=== PATIENT | male | born 1945 | race Caucasian/White ===

== ENCOUNTER 2018-02-02 11:35 | Emergency (ER) | payer OTHER ==
--- OUTSIDE RECORDS SUMMARY | 2018-02-02 11:37 | XMS REPORT | Clinical Summary ---
:1945 Author Organization [facility] Address [address] [place] [address] Care Team Providers Name Role Phone Kranthi Villavicencio MD Primary Care Provider Allergies No Known Allergies Current Medications Prescription Sig. Disp. Refills Start Date End Date Status pravastatin Take 40 mg by Active (PRAVACHOL) 40 MG mouth daily. tablet cyanocobalamin PHARMACIST 99 09/26/2017 Active 1,000 mcg/mL INJECT injection DIRECTED losartan (COZAAR) TK 1 T PO QD 3 10/22/2017 Active 50 MG tablet metoprolol TK 1 T PO QD 3 10/22/2017 Active succinate XL (TOPROL-XL) 50 mg 24 hr tablet HYDROcodone-acetami TAKE 1 TABLET 0 06/22/2016 Discontinued nophen (NORCO) EVERY 6 HOURS 8 10-325 mg per FOR PAIN tablet lisinopril Take 40 mg by Discontinued (PRINIVIL,ZESTRIL) mouth daily. 8 40 mg tablet bisoprolol-hydrochl Take 1 tablet Discontinued orothiazide (ZIAC) by mouth daily. 8 10-6.25 mg per tablet mupirocin Apply to both 22 g 0 07/31/2017 (BACTROBAN) 2 % nostril twice a 8 ointment day starting 2 days prior to surgery and morning of surgery aspirin 81 mg Chew 1 tablet 60 tablet 0 09/10/2017 chewable tablet (81 mg total) 2 8 (two) times a day for 30 days. docusate sodium Take 1 capsule 60 capsule 0 09/10/2017 (COLACE) 100 MG (100 mg total) 8 capsule by mouth 2 (two) times a day for 30 days. acetaminophen-codei Take 1 tablet 30 tablet 0 09/25/2017 ne (TYLENOL WITH by mouth every 8 CODEINE #3) 300-30 6 (six) hours mg per tablet as needed for moderate pain for up to 10 days. 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 Encounters Date Type Specialty Care Team Description 12/23/2017 Office Visit Orthopedic Surgery Rick Lou Chronic left shoulder pain (Primary Dx); MD Kiley Carpal tunnel syndrome of right wrist 12/19/2017 Telephone Gastroenterology Georges Miranda MD 11/18/2017 Office Visit Internal Medicine Kranthi Villavicencio Pain in both knees , unspecified chronicity (Primary Dx); MD Dana Obstructive sleep apnea syndrome; Screening for malignant neoplasm of colon; Carpal tunnel syndrome of right wrist 09/25/2017 Office Visit Orthopedic Surgery Rayray Clifford Status post left knee MD Dana replacement (Primary Dx) 09/25/2017 Orders Only Orthopedic Surgery Olesya Garcia MA 09/25/2017 Orders Only Orthopedic Surgery Olesya Garcia MA 09/15/2017 Orders Only Orthopedic Surgery Beckham, Instability of left knee joint (Primary Dx); JUSTIN Colón Status post revision of total knee replacement, left 09/09/2017 - Hospital Encounter Orthopedic Surgery Rayray Clifford Displacement of 09/10/2017 MD Dana internal left knee prosthesis, initial encounter 09/09/2017 Anesthesia Event Orthopedic Surgery Arcadio Smith CRNA 09/09/2017 Procedure Pass Orthopedic Surgery 09/09/2017 Surgery Orthopedic Surgery Rayray Clifford ARTHROPLASTY, KNEE, MD Dana TOTAL 08/25/2017 Lab Lab Kranthi Villavicencio Pre-op evaluation MD Dana 08/25/2017 Hospital Encounter Radiology Kranthi Villavicencio Cervical J., MD radiculopathy 08/25/2017 Hospital Encounter Radiology Kranthi Villavicencio Pre-op evaluation MD Dana 08/25/2017 Office Visit Internal Medicine Kranthi Villavicencio Pre-op evaluation ( Primary Dx); MD Dana Cervical radiculopathy 07/31/2017 Office Visit Orthopedic Surgery Rayray Clifford Status post bilateral knee replacements (Primary Dx); MD Dana Acute pain of both knees 07/31/2017 Orders Only Orthopedic Surgery Pavan Garciaa, MA 07/29/2017 Orders Only Orthopedic Surgery Olesya Garcia, Acute pain of both MA knees (Primary Dx) 05/01/2017 Office Visit Internal Medicine Kranthi Villavicencio Need for vaccination (Primary Dx); MD Dana Other chronic pain after 02/01/2017 Immunizations Name Dates Previously Given Next Due FLUZONE HIGH-DOSE PF 05/01/2017 Family History Medical History Relation Name Comments Cancer Brother Cancer Father X Cancer Mother X Relation Name Status Comments Brother (Age 54) Father X (Age 78) Mother X (Age 54) Social History Tobacco Use Types Packs/Day Years Used Date Never Smoker Smokeless Tobacco: Never Used Alcohol Use Drinks/Week oz/Week Comments No Sex Assigned at Date Recorded Not on file Last Filed Vital Signs Vital Sign Reading Time Taken Blood Pressure 166/92 11/18/2017 10:58 AM CDT Pulse 93 11/18/2017 10:58 AM CDT Temperature 35.9 C (96.7 F) 09/10/2017 8:39 AM JEWELRY FINISHER Respiratory Rate 17 09/10/2017 8:39 AM JEWELRY FINISHER Oxygen Saturation 94% 09/10/2017 8:39 AM JEWELRY FINISHER Inhaled Oxygen Concentration - - Weight 115 kg (252 lb 11.2 oz) 11/18/2017 10:58 AM CDT Height 182.9 cm (6') 11/18/2017 10:58 AM CDT Body Mass Index 34.27 11/18/2017 10:58 AM CDT Plan of Treatment Date Type Specialty Care Team Description 02/06/2018 Office Visit Internal Medicine Kranthi Villavicencio MD [address] [place], [place] [id number] Health Maintenance Due Date Last Done Comments COLON CANCER SCREENING 1997 SHINGRIX VACCINE (#1) 1997 ZOSTER VACCINE 2007 PNEUMOCOCCAL POLYSACCHARIDE VACCINE AGE 65 AND OVER 2012 PNEUMOCOCCAL-13 2012 INFLUENZA VACCINE 03/18/2018 05/01/2017 Implants Implanted Type Area Heating Unit Installer Device Expiration Model / Identifier Date Serial / Lot Surface Artclr Rhk #D #3-6 14mm Nexgen - [id number] Knee Joint Left: [employer] 06/17/2021 [id number] / Implanted: Qty: 1 on 09/09/2017 by Rayray Clifford MD Implants Knee / [id number] Cement Bone R+G 1dose Palacos - [id number] Knee Joint Left: [employer] [id number] / Implanted: Qty: 1 on 09/09/2017 by Rayray Clifford MD Implants Knee / [id number] Cement Bone R+G 1dose Palacos - [id number] Knee Joint Left: [employer] [id number] / Implanted: Qty: 1 on 09/09/2017 by Rayray Clifford MD Implants Knee / [id number] Cement Bone R+G 1dose Palacos - [id number] Knee Joint Left: [employer] [id number] / Implanted: Qty: 1 on 09/09/2017 by Rayray Clifford MD Implants Knee / [id number] Plate Tib Rotng Hinge Nmodlr Sz 3 Nexgen - [id number] Knee Joint Left: [employer] 04/17/2022 [id number] / Implanted: Qty: 1 on 09/09/2017 by Rayray Clifford MD Implants Knee / [id number] Component Feml Left Rhk Size D Nexgen - [id number] Knee Joint Left: [employer] 07/17/2022 [id number] / Implanted: Qty: 1 on 09/09/2017 by Rayray Clifford MD Implants Knee / [id number] Augment Fml Block Distl P-Coat Sz D Tivn Pmma 5mm Strl - [id number] Knee Joint Left: [employer] 06/17/2027 [id number] / Implanted: Qty: 1 on 09/09/2017 by Rayray Clifford MD Implants Knee / [id number] Extension Stem Str [id number] (30mm) Nexgen - [id number] Knee Joint Left: [employer] 07/17/2027 [id number] / Implanted: Qty: 1 on 09/09/2017 by Rayray Clifford MD Implants Knee / [id number] Augment Fml Block Distl P-Coat Sz D Tivn Pmma 5mm Strl - [id number] Knee Joint Left: [employer] 03/17/2026 [id number] / Implanted: Qty: 1 on 09/09/2017 by Rayray Clifford MD Implants Knee / [id number] Cement Bone Prep Univl Insrtr Sculp Fml [place] Suct Sm - [id number] Surgical Left: [employer] 02/15/2022 [id number] / Implanted: Qty: 1 on 09/09/2017 by Rayray Clifford MD Implants; Knee INSTRUMENTS / Expanders; [id number] Extenders; Surgical Wires Procedures Procedure Name Priority Date/Time Associated Diagnosis Comments XR SHOULDER 2+ VW Routine 12/23/2017 8:51 Chronic left Results for this LEFT AM CDT shoulder pain procedure are in the results section. XR HAND 3+ VW RIGHT Routine 12/23/2017 8:33 Carpal tunnel Results for this AM CDT syndrome of right procedure are in wrist the results section. B NATRIURETIC PEPTIDE Routine 09/10/2017 5:00 Results for this AM JEWELRY FINISHER procedure are in the results section. CBC WITH PLATELET AND Routine 09/10/2017 5:00 Results for this DIFFERENTIAL AM JEWELRY FINISHER procedure are in the results section. ESTIMATED GFR Routine 09/10/2017 4:00 Results for this AM JEWELRY FINISHER procedure are in the results section. PHOSPHORUS LEVEL Routine 09/10/2017 4:00 Results for this AM JEWELRY FINISHER procedure are in the results section. MAGNESIUM LEVEL Routine 09/10/2017 4:00 Results for this AM JEWELRY FINISHER procedure are in the results section. BASIC METABOLIC PANEL Routine 09/10/2017 4:00 Results for this AM JEWELRY FINISHER procedure are in the results section. XR KNEE 1 OR 2 VW Routine 09/09/2017 12:31 Results for this LEFT PM JEWELRY FINISHER procedure are in the results section. POC GLUCOSE Routine 09/09/2017 12:06 Results for this PM JEWELRY FINISHER procedure are in the results section. SURGICAL PATHOLOGY Routine 09/09/2017 11:24 Results for this REQUEST AM JEWELRY FINISHER procedure are in the results section. GRAM STAIN Timed 09/09/2017 10:54 Results for this AM JEWELRY FINISHER procedure are in the results section. AFB STAIN Timed 09/09/2017 10:54 Results for this AM JEWELRY FINISHER procedure are in the results section. JOINT FLUID CULTURE Timed 09/09/2017 10:54 Results for this AM JEWELRY FINISHER procedure are in the results section. FUNGUS SMEAR Timed 09/09/2017 10:54 Results for this AM JEWELRY FINISHER procedure are in the results section. AFB CULTURE Timed 09/09/2017 10:54 Displacement of Results for this AM JEWELRY FINISHER internal left knee procedure are in prosthesis, initial the results encounter section. FUNGUS CULTURE Timed 09/09/2017 10:54 Displacement of Results for this AM JEWELRY FINISHER internal left knee procedure are in prosthesis, initial the results encounter section. ANAEROBIC CULTURE Timed 09/09/2017 10:54 Displacement of Results for this AM JEWELRY FINISHER internal left knee procedure are in prosthesis, initial the results encounter section. SC AN ELECTIVE Routine 09/09/2017 10:34 SUPRAGLOTTIC AIRWAY AM JEWELRY FINISHER Procedure Note - Alfreda Alvarado CRNA - 09/09/2017 10:33 AM JEWELRY FINISHER Airway Date/Time: 09/09/2017 10:09 AM Performed by: ALFREDA ALVARADO Authorized by: MARYANNE KILLIAN Location: OR Urgency: Elective Difficult Airway: No Anesthesiologist: MARYANNE KILLIAN Resident/AUDIOPROSTHOLOGIST/AA: ALFREDA ALVARADO Performed by: resident/AUDIOPROSTHOLOGIST/AA Preoxygenated with 100% O2: Yes C-spine Precautions Maintained Throughout: Yes Mask Ventilation: Not attempted Final Airway Type: Supraglottic airway Final LMA: Classic LMA Size: 5 Number of Attempts at Approach: 1 Smooth, atraumatic insertion with good seal; dentition intact ARTHROPLASTY, KNEE, TOTAL 09/09/2017 10:00 AM JEWELRY FINISHER Displacement of internal left knee prosthesis, initial encounter SC AN PERIPHERAL BLOCK Routine 09/09/2017 9:13 AM JEWELRY FINISHER POST-OP PAIN Procedure Note - Maryanne Killian MD - 09/09/2017 9:11 AM JEWELRY FINISHER Peripheral Block Performed by: MARYANNE KILILAN Authorized by: MARYANNE KILLIAN Patient Location: Pre-op Start Time: 09/09/2017 9:05 AM End Time: 09/09/2017 9:06 AM Reason for Block: at surgeon's request, post-op pain management Staff: Anesthesiologist: MARYANNE KILLIAN Performed by: Anesthesiologist Preprocedure: patient identified, IV checked, site and side verified, risks and benefits discussed, procedure verified, surgical consent complete, patient position confirmed, monitors and equipment checked, pre-op evaluation complete and site marked Time Out Performed: 09/09/2017 8:54 AM Peripheral Nerve Block: Patient Position: Supine Prep: ChloraPrep Monitoring: Blood pressure monitoring, continuous pulse oximetry and heart rate Block Type: Femoral (adductor canal) Laterality: Left Injection Technique: Single injection Procedures: ultrasound guided Ultrasound documentation: Images saved on hard disk and printed/placed in chart Local Infiltration (See MAR for details): Lidocaine Needle: Needle Type: Pajunk Needle Gauge: 22 G Needle Length: 8 cm Assessment: Injection Assessment: Visualized needle/local anesthetic surrounding nerve , intermittent aspiration during local anesthetic administration, visualized pertinent vascular structures and nerves, no symptoms of intraneural/intravenous injection and needle tip visualized at all times during injection of medication Paresthesia Pain: None Heart Rate Change: No Slow Fractionated Injection: Yes Block outcome: No apparent complications, patient comfortable and patient tolerated procedure well ANESTHESIA SPINAL BLOCK Routine 09/09/2017 9:10 AM JEWELRY FINISHER Procedure Note - Maryanne Killian MD - 09/09/2017 9:10 AM JEWELRY FINISHER Spinal Block Performed by: MARYANNE KILLIAN Authorized by: MARYANNE KILLIAN Patient Location: Pre-op Start Time: 09/09/2017 8:57 AM End Time: 09/09/2017 9:00 AM Reason for Block: at surgeon's request Staff: Anesthesiologist: MARYANNE KILLIAN Performed by: Anesthesiologist patient identified, IV checked, site and side verified, risks and benefits discussed, procedure verified, surgical consent complete, patient position confirmed, monitors and equipment checked and pre-op evaluation complete TIme Out Performed: 09/09/2017 8:53 AM Spinal Block: Patient Position: Sitting Prep: Betadine Monitoring: Blood pressure monitoring, continuous pulse oximetry and heart rate Approach: Midline Interspace: L3-4 Injection Technique: Single injection Needle: Needle Type: Pencil-tip Needle Gauge: 25 G Assessment: Coagulation status: Coagulation status verified Block assessment: No apparent complications and patient tolerated procedure well Notes: X 1 attempt @ 6cm POC GLUCOSE Routine 09/09/2017 7:29 Results for this AM JEWELRY FINISHER procedure are in the results section. TYPE AND SCREEN Routine 09/09/2017 7:25 Results for this AM JEWELRY FINISHER procedure are in the results section. XR CHEST 2 VW Routine 08/25/2017 2:08 Pre-op evaluation Results for this PM JEWELRY FINISHER procedure are in the results section. XR CERVICAL SPINE Routine 08/25/2017 2:08 Cervical Results for this COMPLETE PM JEWELRY FINISHER radiculopathy procedure are in the results section. SEDIMENTATION RATE Routine 08/25/2017 12:06 Pre-op evaluation Results for this PM JEWELRY FINISHER procedure are in the results section. C-REACTIVE PROTEIN Routine 08/25/2017 12:06 Pre-op evaluation Results for this PM JEWELRY FINISHER procedure are in the results section. PROTHROMBIN TIME WITH Routine 08/25/2017 11:55 Pre-op evaluation Results for this INR AM JEWELRY FINISHER procedure are in the results section. PARTIAL THROMBOPLASTIN Routine 08/25/2017 11:55 Pre-op evaluation Results for this TIME (PTT) AM JEWELRY FINISHER procedure are in the results section. URINALYSIS, AUTOMATED Routine 08/25/2017 11:55 Pre-op evaluation Results for this WITH MICROSCOPY AM JEWELRY FINISHER procedure are in the results section. COMPREHENSIVE Routine 08/25/2017 11:55 Pre-op evaluation Results for this METABOLIC PANEL AM JEWELRY FINISHER procedure are in the results section. CBC WITH PLATELET AND Routine 08/25/2017 11:55 Pre-op evaluation Results for this DIFFERENTIAL AM JEWELRY FINISHER procedure are in the results section. ECG 12-LEAD Routine 08/25/2017 11:17 Pre-op evaluation Results for this AM JEWELRY FINISHER procedure are in the results section. XR KNEE 3 VW BILATERAL Routine 07/31/2017 8:25 Acute pain of both AM JEWELRY FINISHER knees XR LEG LENGTH Routine 07/31/2017 8:25 Acute pain of both Results for this EVALUATION AM JEWELRY FINISHER knees procedure are in the results section. after 02/01/2017 Results XR Shoulder 2+ Vw Left (12/23/2017 8:51 AM) Narrative Performed At 3 views left shoulder in good penetrance and quality with out any acute HM [facility] obvious fractures, dislocations or calcifications unless HPI states otherwise. Performing Organization Address City/State/Zipcode Phone Number [facility] [address] [place] [address] XR Hand 3+ Vw Right (12/23/2017 8:33 AM) Narrative Performed At 3 views rt hand in good penetrance and quality with out any acute obvious HM [facility] fractures, dislocations or calcifications unless HPI states otherwise. Performing Organization Address City/[facility]/Zipcode Phone Number [facility] [address] [address] CBC with platelet and differential (09/10/2017 5:00 AM)Only the most recent of2 resultswithin the time period is included. WBC 21.01 (H) 4.50 - 11.00 k/uL [facility] DEPARTMENT OF PATHOLOGY AND GENOMIC MEDICINE RBC 4.13 (L) 4.40 - 6.00 m/uL [facility] DEPARTMENT OF PATHOLOGY AND GENOMIC MEDICINE HGB 12.0 (L) 14.0 - 18.0 g/dL [facility] DEPARTMENT OF PATHOLOGY AND GENOMIC MEDICINE HCT 37.3 (L) 41.0 - 51.0 % [facility] DEPARTMENT OF PATHOLOGY AND GENOMIC MEDICINE MCV 90.3 82.0 - 100.0 fL [facility] DEPARTMENT OF PATHOLOGY AND GENOMIC MEDICINE MCH 29.1 27.0 - 34.0 pg [facility] DEPARTMENT OF PATHOLOGY AND GENOMIC MEDICINE MCHC 32.2 31.0 - 37.0 g/dL [facility] DEPARTMENT OF PATHOLOGY AND GENOMIC MEDICINE RDW - SD 39.8 37.0 - 55.0 fL [facility] DEPARTMENT OF PATHOLOGY AND GENOMIC MEDICINE MPV 9.7 8.8 - 13.2 fL [facility] DEPARTMENT OF PATHOLOGY AND GENOMIC MEDICINE Platelet count 218 150 - 400 k/uL [facility] DEPARTMENT OF PATHOLOGY AND GENOMIC MEDICINE Nucleated RBC 0.00 /100 WBC [facility] DEPARTMENT OF PATHOLOGY AND GENOMIC MEDICINE Neutrophils 92.0 (H) 39.0 - 69.0 % [facility] DEPARTMENT OF PATHOLOGY AND GENOMIC MEDICINE Lymphocytes 4.6 (L) 25.0 - 45.0 % [facility] DEPARTMENT OF PATHOLOGY AND GENOMIC MEDICINE Monocytes 2.7 0.0 - 10.0 % [facility] DEPARTMENT OF PATHOLOGY AND GENOMIC MEDICINE Eosinophils 0.0 0.0 - 5.0 % [facility] DEPARTMENT OF PATHOLOGY AND GENOMIC MEDICINE Basophils 0.1 0.0 - 1.0 % [facility] DEPARTMENT OF PATHOLOGY AND GENOMIC MEDICINE Immature granulocytes 0.6Comment: 0.0 - 1.0 % [facility] DEPARTMENT OF "Immature PATHOLOGY AND GENOMIC granulocytes" MEDICINE (promyelocytes, myelocytes, metamyelocytes) Specimen Blood Performing Organization Address [facility] Phone Number [facility] DEPARTMENT OF PATHOLOGY AND [address] [place] [phone] [facility] B natriuretic peptide (09/10/2017 5:00 AM) BNP 122 (H) 0 - 100 pg/mL [facility] DEPARTMENT OF PATHOLOGY AND GENOMIC MEDICINE Specimen Blood Performing Organization Address [facility] Phone Number [facility] DEPARTMENT OF PATHOLOGY AND [address] [place] [phone] [facility] Estimated GFR (09/10/2017 4:00 AM) GFR Non Af Amer 66 mL/min/1.73 m2 [facility] DEPARTMENT OF PATHOLOGY AND GENOMIC MEDICINE GFR Af Amer 80 mL/min/1.73 m2 [facility] DEPARTMENT OF Comment: PATHOLOGY AND GENOMIC Chronic kidney disease: <60 mL/min/1.73m2 MEDICINE Kidney failure: <15 mL/min/1.73m2 The estimated GFR is calculated from the IDMS-traceable Modification of Diet in Renal Disease Equation. The accuracy of the calculation is poor when the creatinine is normal. Calculated values >90 mL/min/1.73m2 are not reported. This equation has not been validated in children (<18 years), women, the elderly (>70 years), or ethnic groups other than Caucasians and Americans. Specimen Plasma specimen Performing Organization Address [facility] Phone Number [facility] DEPARTMENT OF PATHOLOGY AND [address] [place] [phone] [facility] Phosphorus level (09/10/2017 4:00 AM) Phosphorus 2.3 (L) 2.4 - 4.5 mg/dL [facility] DEPARTMENT OF PATHOLOGY AND GENOMIC MEDICINE Specimen Plasma specimen Performing Organization Address [facility] Phone Number [facility] DEPARTMENT OF PATHOLOGY AND [address] [place] [phone] [facility] Magnesium level (09/10/2017 4:00 AM) Magnesium 1.9 1.6 - 2.4 mg/dL [facility] DEPARTMENT OF PATHOLOGY AND GENOMIC MEDICINE Specimen Plasma specimen Performing Organization Address [facility] Phone Number [facility] DEPARTMENT OF PATHOLOGY AND [address] [place] [phone] [facility] Basic metabolic panel (09/10/2017 4:00 AM) Sodium 136 135 - 148 mEq/L [facility] DEPARTMENT OF PATHOLOGY AND GENOMIC MEDICINE Potassium 5.1 (H) 3.5 - 5.0 mEq/L [facility] DEPARTMENT OF PATHOLOGY AND GENOMIC MEDICINE Chloride 102 98 - 112 mEq/L [facility] DEPARTMENT OF PATHOLOGY AND GENOMIC MEDICINE CO2 22 (L) 24 - 31 mEq/L [facility] DEPARTMENT OF PATHOLOGY AND GENOMIC MEDICINE Anion gap 12 7 - 15 mEq/L [facility] DEPARTMENT OF PATHOLOGY Comment: [facility] Starting from November , anion gap calculation no longer incorporates potassium. Please note the change. BUN 16 8 - 23 mg/dL [facility] DEPARTMENT OF PATHOLOGY AND GENOMIC MEDICINE Creatinine 1.1 0.7 - 1.2 mg/dL [facility] DEPARTMENT OF PATHOLOGY AND GENOMIC MEDICINE Glucose 132 (H) 65 - 99 mg/dL [facility] DEPARTMENT OF PATHOLOGY AND GENOMIC MEDICINE Calcium 8.6 (L) 8.8 - 10.2 mg/dL [facility] DEPARTMENT OF PATHOLOGY AND GENOMIC MEDICINE Specimen Plasma specimen Performing Organization Address City/[facility]/Zipcode Phone Number [facility] DEPARTMENT OF PATHOLOGY AND [address] [phone] [facility] XR Knee 1 Or 2 Vw Left (09/09/2017 12:31 PM) Narrative Performed At EXAMINATION:XR KNEE 1 OR 2 VW LEFT [facility] CLINICAL HISTORY:total knee arthoplasty COMPARISON:07/31/2017 IMPRESSION: Status post left knee arthroplasty revision with longer stem femoral and tibial components. Hardware is in satisfactory alignment. There is no fracture. Overlying soft tissue swelling, subcutaneous emphysema and skin je. [facility]-[id number] Procedure Note Interface, Radiology Results Incoming - 09/09/2017 12:38 PM JEWELRY FINISHER EXAMINATION: XR KNEE 1 OR 2 VW LEFT CLINICAL HISTORY: total knee arthoplasty COMPARISON: 07/31/2017 IMPRESSION: Status post left knee arthroplasty revision with longer stem femoral and tibial components. Hardware is in satisfactory alignment. There is no fracture. Overlying soft tissue swelling, subcutaneous emphysema and skin je. [facility]-[id number] Performing Organization Address City/[facility]/Zipcode Phone Number [facility] [address] [place] [address] POC glucose (09/09/2017 12:06 PM)Only the most recent of2 resultswithin the time period is included. POC glucose 103 (H) 65 - 99 mg/dL [facility] DEPARTMENT OF PATHOLOGY AND Comment: GENOMIC MEDICINE [facility] Notified RN Meter ID: [id number] Software Development Analyst: Brandenburgluis Fullermargo Lindo Performing Organization Address City/[facility] Phone Number [facility] DEPARTMENT OF PATHOLOGY AND [address] [place] [address] GENOMIC MEDICINE Surgical pathology request (09/09/2017 11:24 AM) [facility] DEPARTMENT OF PATHOLOGY AND GENOMIC MEDICINE Surgical pathology report See link below for PDF [facility] DEPARTMENT OF Lab Report PATHOLOGY AND GENOMIC MEDICINE Result status This is Final Report to [facility] DEPARTMENT OF [id number] PATHOLOGY AND GENOMIC MEDICINE Performing Organization Address [facility] Phone Number [facility] DEPARTMENT OF PATHOLOGY AND [address] [place] [address] GENOMIC MEDICINE Joint fluid culture (09/09/2017 10:54 AM) Joint fluid culture No growth after 4 days. [facility] DEPARTMENT OF isolate Comment: PATHOLOGY AND GENOMIC Specimen Information MEDICINE Specimen Source: Joint Fluid Specimen Site: Knee, left Specimen Joint fluid - Knee, left Performing Organization Address [facility] [facility] Phone Number [facility] DEPARTMENT OF PATHOLOGY AND [address] [place] [address] GENOMIC MEDICINE Fungus smear (09/09/2017 10:54 AM) Fungus smear No fungi observed. [facility] DEPARTMENT OF PATHOLOGY AND Comment: GENOMIC MEDICINE Specimen Information Specimen Source: Joint Fluid Specimen Site: Knee, left Specimen Joint fluid - Knee, left Performing Organization Address [facility] Phone Number [facility] DEPARTMENT OF PATHOLOGY AND [address] [place] [address] GENOMIC MEDICINE AFB culture (09/09/2017 10:54 AM) AFB culture isolate No growth after 6 weeks of incubation. [facility] DEPARTMENT OF PATHOLOGY Comment: AND GENOMIC MEDICINE Specimen Information Specimen Source: Joint Fluid Specimen Site: Knee, left Specimen Joint fluid - Knee, left Performing Organization Address [facility] Phone Number [facility] DEPARTMENT OF PATHOLOGY AND [address] [place] [address] GENOMIC MEDICINE Gram stain (09/09/2017 10:54 AM) Gram stain isolate No WBC's or organisms seen. [facility] DEPARTMENT OF PATHOLOGY Comment: AND GENOMIC MEDICINE Specimen Information Specimen Source: Joint Fluid Specimen Site: Knee, left Specimen Joint fluid - Knee, left Performing Organization Address [facility] Phone Number [facility] DEPARTMENT OF PATHOLOGY AND [address] [place] [phone] GENOMIC MEDICINE AFB stain (09/09/2017 10:54 AM) AFB stain No acid fast bacilli (AFB) seen. [facility] DEPARTMENT OF PATHOLOGY AND Comment: GENOMIC MEDICINE Specimen Information Specimen Source: Joint Fluid Specimen Site: Knee, left Specimen Joint fluid - Knee, left Performing Organization Address [facility] Phone Number [facility] DEPARTMENT OF PATHOLOGY AND [address] [place] [address] Fungus culture (09/09/2017 10:54 AM) Fungus culture isolate No growth after 4 weeks of incubation. [facility] DEPARTMENT OF Comment: PATHOLOGY AND GENOMIC Specimen Information MEDICINE Specimen Source: Joint Fluid Specimen Site: Knee, left Specimen Joint fluid - Knee, left Performing Organization Address [facility] Phone Number [facility] DEPARTMENT OF PATHOLOGY AND [address] [place] [address] Anaerobic culture (09/09/2017 10:54 AM) Anaerobic culture No anaerobic organisms isolated. [facility] DEPARTMENT OF isolate Comment: PATHOLOGY AND GENOMIC Specimen Information MEDICINE Specimen Source: Joint Fluid Specimen Site: Knee, left Specimen Joint fluid - Knee, left Performing Organization Address [facility] Phone Number [facility] DEPARTMENT OF PATHOLOGY AND [address] [place] [address] GENOMIC MEDICINE Type and screen (09/09/2017 7:25 AM) ABO grouping O [facility] DEPARTMENT OF PATHOLOGY AND GENOMIC MEDICINE Rh type POS [facility] DEPARTMENT OF PATHOLOGY AND GENOMIC MEDICINE Antibody screen (gel) NEG [facility] DEPARTMENT OF PATHOLOGY AND GENOMIC MEDICINE Specimen Blood Performing Organization Address [facility] Phone Number [facility] DEPARTMENT OF PATHOLOGY AND [address] [place] [address] GENOMIC MEDICINE XR Chest 2 Vw (08/25/2017 2:08 PM) Narrative Performed At Examination:XR CHEST 2 VW [facility] Clinical History: Z01.818 Encounter for other preprocedural examination, pre-op Comparison: December 07, 2009. Technique: Frontal and lateral views of the chest were obtained. Findings: Lungs and pleural surfaces are clear. Cardiomediastinal silhouette and pulmonary vascularity are within normal limits. Bones are intact. Impression: No active cardiopulmonary disease identified. 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 Technique: Frontal and lateral views of the chest were obtained. Findings: Lungs and pleural surfaces are clear. Cardiomediastinal silhouette and pulmonary vascularity are within normal limits. Bones are intact. Impression: No active cardiopulmonary disease identified. [facility]-[id number] Performing Organization Address [facility] Phone Number [facility] [address] [place] [address] XR Cervical Spine Complete (08/25/2017 2:08 PM) Narrative Performed At EXAMINATION:XR CERVICAL SPINE COMPLETE, 5 views. [facility] COMPARISON:None CLINICAL HISTORY:M54.12 Radiculopathycervical region, cervical radiculopathy FINDINGS: There is C5-6 and C6-7 degenerative disc change and spondylosis. There is no malalignment. The C1-2 relationship is normal. There is narrowing of the right C3-4 and C4-5 and left C5-6 neural foramina. The prevertebral soft tissues are normal. There is no fracture. IMPRESSION: Degenerative changes. 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 COMPARISON: None CLINICAL HISTORY: M54.12 Radiculopathy cervical region, cervical radiculopathy FINDINGS: There is C5-6 and C6-7 degenerative disc change and spondylosis. There is no malalignment. The C1-2 relationship is normal. There is narrowing of the right C3-4 and C4-5 and left C5-6 neural foramina. The prevertebral soft tissues are normal. There is no fracture. IMPRESSION: Degenerative changes. [id number] Performing Organization Address [facility] Phone Number [facility] [address] [place] [address] Sedimentation rate (08/25/2017 12:06 PM) Sedimentation rate 2 < OR=20 mm/h [facility] Specimen Blood Resulting Agency Comment Performing Organization Information: Site ID: A Name: [facility] Address: [address] [place] [phone] Director: Dee Dee Harding MD Performing Organization Address [facility] Phone Number [employer] [place] [address] [place] [phone] C-reactive protein (08/25/2017 12:06 PM) CRP 1.8 <8.0 mg/L [employer] [facility] [place] Specimen Blood Resulting Agency Comment Performing Organization Information: Site ID: RGA Name: [facility] Address: [address] [place] [phone] Director: Dee Dee Harding MD Performing Organization Address [facility] Phone Number [employer] [address] [address] Urinalysis, automated with microscopy (08/25/2017 11:55 AM) Color, UA YELLOW YELLOW [facility] [place] Appearance CLEAR CLEAR [facility] [place] Specific gravity, urine 1.024 1.001 - 1.035 [facility] [place] pH, urine 5.5 5.0 - 8.0 [facility] [place] Glucose, urine NEGATIVE NEGATIVE [facility] [place] Bilirubin, UA NEGATIVE NEGATIVE [facility] [place] Ketones, UA NEGATIVE NEGATIVE [facility] [place] Occult blood, urine NEGATIVE NEGATIVE [facility] [place] Protein, UA NEGATIVE NEGATIVE [facility] [place] Nitrite, UA NEGATIVE NEGATIVE [facility] [place] Leukocyte esterase, UA NEGATIVE NEGATIVE [facility] [place] WBC, UA NONE SEEN < OR=5 /HPF [facility] [place] RBC, UA NONE SEEN < OR=2 /HPF [facility] [place] Squamous epithelial cells, UA NONE SEEN < OR=5 /HPF [facility] [place] Bacteria, UA NONE SEEN NONE SEEN /HPF [facility] [place] Hyaline casts, UA NONE SEEN NONE SEEN /LPF [facility] [place] Specimen Urine Resulting Agency Comment Performing Organization Information: Site ID: RGA Name: [facility] Address: [address] [place] [phone] Director: Dee Dee Harding MD Performing Organization Address [facility] Phone Number [employer] [address] [address] Partial thromboplastin time, activated (08/25/2017 11:55 AM) PTT 26 22 - 34 sec [employer] [place] Comment: This test has not been validated for monitoring unfractionated heparin therapy. For testing that is validated for this type of therapy, please refer to the Heparin Anti-Xa assay (test code 83380). For additional information, please refer to http://Apparcando.Sweetgreen/faq/SPL912 (This link is being provided for informational/educational purposes only.) Specimen Blood Resulting Agency Comment Performing Organization Information: Site ID: [facility] Name: [facility] Address: [address] [place] [address] Director: Dee Dee Harding MD Performing Organization Address [facility] Phone Number [facility] [place] [place] [address] Prothrombin time with INR (08/25/2017 11:55 AM) INR 1.0 [facility] [place] Comment: Reference Range 0.9-1.1 Moderate-intensity Warfarin Therapy 2.0-3.0 Higher-intensity Warfarin Therapy 3.0-4.0 Prothrombin time 10.7 9.0 - 11.5 sec [employer] [place] Comment: For more information on this test, go to: http://education.[employer]/faq/PRL492 Specimen Blood Resulting Agency Comment Performing Organization Information: Site ID: [facility] Name: [facility] [facility] Lab Address: [address] [place] [address] Director: Dee Dee Harding MD Performing Organization Address [facility] Phone Number [facility] [place] [address] Comprehensive metabolic panel (08/25/2017 11:55 AM) Glucose 116 (H) 65 - 99 mg/dL [facility] Comment: [place] Fasting reference interval For someone without known diabetes, a glucose value between 100 and 125 mg/dL is consistent with prediabetes and should be confirmed with a follow-up test. BUN, whole blood 13 7 - 25 mg/dL [facility] [employer] [place] Creatinine 1.15 0.70 - 1.18 [facility] Comment: mg/dL [place] For patients >49 years of age, the reference limit for Creatinine is approximately 13% higher for people identified as -Kittitian. EGFR Non-Afr. Kittitian 64 > OR=60 [facility] mL/min/1.73m2 [place] EGFR 74 > OR=60 [employer] [facility] mL/min/1.73m2 [place] BUN/creatinine ratio NOT APPLICABLE 6 - 22 (calc) [employer] [place] Sodium 144 135 - 146 mmol/L [employer] [facility] [place] Potassium 4.3 3.5 - 5.3 mmol/L [employer] [facility] [place] Chloride 107 98 - 110 mmol/L [employer] [facility] [place] CO2 30 20 - 31 mmol/L [employer] [facility] [place] Calcium 9.5 8.6 - 10.3 mg/dL [employer] [facility] [place] Protein 6.9 6.1 - 8.1 g/dL [employer] [place] Albumin, S 4.2 3.6 - 5.1 g/dL [facility] [place] Globulin, total 2.7 1.9 - 3.7 g/dL [facility] (calc) [place] Albumin/globulin ratio 1.6 1.0 - 2.5 (calc) [facility] [place] Total bilirubin 0.5 0.2 - 1.2 mg/dL [employer] [place] Alkaline phosphatase 69 40 - 115 U/L [employer] [facility] [place] AST 19 10 - 35 U/L [employer] [facility] ALT 24 9 - 46 U/L [employer] [facility] [place] Specimen Blood Resulting Agency Comment Performing Organization Information: Site ID: RGA Name: [facility] Address: [address] [place] [phone] Director: Dee Dee Harding MD Performing Organization Address City/[facility] Phone Number [employer] [place] [phone] ECG 12 lead (08/25/2017 11:17 AM) Ventricular rate 76 [facility] Atrial rate 76 [facility] SC interval 210 [facility] QRSD interval 96 [facility] QT interval 392 [facility] QTC interval 441 [facility] P axis 1 39 [facility] QRS axis 1 6 [facility] T wave axis -6 [facility] EKG impression Sinus rhythm with 1st degree AV H MUSE block-Otherwise normal ECG-In automated comparison with ECG of 23-SEP-2016 14:37,-premature ventricular complexes are no longer present- Performing Organization Address [facility] Phone Number [facility] [address] [place] [address] XR Knee 3 Vw Bilateral (07/31/2017 8:25 AM) Narrative Performed At Performing Organization Address [facility] Phone Number [facility] [address] [place] [address] XR Leg Length Evaluation (07/31/2017 8:25 AM) Narrative Performed At Knee x-rays reveal lateral knee arthroplasties in place with a cementless HM [facility] femurs and cemented tibias. Alignment is satisfactory. Performing Organization Address [facility] Phone Number [facility] [address] [place] [address] after 02/01/2017 Insurance Payer Benefit Plan / Group Subscriber ID Type Phone Address MEDICARE MEDICARE PART A AND B xxxxxxxxxx Medicare [place], [place] COMMERCIAL MISC MISC COMMERCIAL xxxxxxxxxx Commercial Home: [id number] [phone] [address]
[2018-02-02] MEDS ORDERED: FENTANYL CITR 100 MCG/2 ML ONE ×2 (11:53→13:58)
[2018-02-02] MEDS ORDERED: NA CHLORIDE 0.9% 1,000 ML ONE (12:08)
[2018-02-02 12:24] LABS: Absolute Lymphocytes (CBC) 1.7 K/uL (0.7-4.9); Absolute Monocytes 0.7 K/uL (0.1-1.3); Absolute Neutrophil 12.4 K/uL (1.8-8.0); Basophils % 0.3 % (0-1.3); Eosinophils % 0.1 % (0-4.4); Hematocrit 46.9 % (39.6-49.0); Lymphocytes % 11.2 % (15.3-44.8); MCH 27.9 pg (27.0-35.0); MPV 7.5 fL (7.6-11.3); Monocytes % 4.5 % (3.3-12.3); RBC Red Blood Cell Count 5.79 M/uL (4.33-5.43)
--- NOTE | 2018-02-02 12:24 | RAD REPORT ---
EXAM DESCRIPTION: CT - Angio Aorta For Dissection - 02/02/2018 12:10 pm CLINICAL HISTORY: Chest pain radiating to the back. left lower quad pain COMPARISON: CT ABD PELVIS W CONTRAST dated 03/02/2012 TECHNIQUE: CT angiography of the aorta was performed with volume rendering. All CT scans are performed using dose optimization technique as appropriate and may include automated exposure control or mA/KV adjustment according to patient size. FINDINGS: A left aortic arch is present with normal branching pattern of the great vessels.No acute aortic finding is seen such as aneurysm, penetrating ulcer or dissection. The celiac axis, SMA, NINA and renal arteries are widely patent. No evidence of pulmonary embolism. Linear subsegmental atelectasis is present in the left lung base. The lungs are otherwise clear. The liver demonstrates no focal mass or biliary dilatation.Cholecystectomy clips.The spleen, pancreas , adrenal glands are within normal limits for arterial phase imaging. 5 mm stone (980 HU) is present at the left UPJ resulting in mild left hydronephrosis. Additional ston e is present in the midpole left kidney measuring 6 mm. No right-sided stone or hydronephrosis. No bowel obstruction, free fluid or abscess.The appendix is not identified as a discrete structure, h owever, no secondary findings of appendicitis are identified. No pathologic enlarged lymphadenopathy identified. No fracture or worrisome bone lesion seen.Postsurgical changes are present right inguinal region. IMPRESSION: No acute aortic finding is demonstrated. 5 mm left UPJ stone (980 HU) resulting mild left hydronephrosis.
--- NOTE | 2018-02-02 12:26 | RAD REPORT ---
EXAM DESCRIPTION: RAD - Chest Single View - 02/02/2018 12:21 pm CLINICAL HISTORY: flank pain Chest pain. COMPARISON: CHEST SINGLE VIEW dated 11/29/2011 FINDINGS: Portable technique limits examination quality. Mild linear atelectasis suspected left lung base. The lungs are otherwise clear. The heart is upper l imit normal size. No displaced fractures. IMPRESSION: No acute intrathoracic process suspected.
[2018-02-02 12:28] LABS: Protime INR 1.03
[2018-02-02] MEDS ORDERED: KETOROLAC 30 MG/ML INJ ONE (12:36)
[2018-02-02] MEDS ORDERED: TAMSULOSIN 0.4 MG SR CAP ONE (12:36)
[2018-02-02 13:36] LABS: Potassium 3.6 mEq/L (3.6-5.0)
[2018-02-02 13:36] LABS: Urine Blood NEGATIVE (NEG); Urine Glucose NEGATIVE (NEG); Urine Protein NEGATIVE (NEG); Urine Specific Gravity 1.015 (1.005-1.030); Urine pH 8.5 (5.0-7.0)
[2018-02-02 13:39] LABS: Magnesium 1.9 mg/dL (1.8-2.5)
[2018-02-02 13:46] LABS: CKMB Creatine Kinase MB 1.8 ng/ml (0.3-4.0)
--- NOTE | 2018-02-02 13:51 | EDPHYS ---
Physician Documentation [facility] Name: Francesco Null Age: 72 yrs Sex: Male : 1945 Arrival Date: 02/02/2018 Time: 11:38 Bed 18 Private MD: ED Physician Radu Perera HPI: 02/02 11:58 This 72 yrs old Male presents to ER via Ambulatory with complaints of snw Possible Kidney Stone. 11:58 Onset: The symptoms/episode began/occurred suddenly, 30 minute(s) ago. Associated signs snw and symptoms: Pertinent positives: nausea. Modifying factors: The patient symptoms are alleviated by nothing, the patient symptoms are aggravated by pressure. The patient has not experienced similar symptoms in the past. It is unknown whether or not the patient has recently seen a physician. Sees PCP in [place]. Pt denies hx of kidney stones. Historical: - Allergies: 11:41 No Known Allergies; hj - PMHx: 11:41 Kidney stones; hj - PSHx: 11:41 L knee surgery; hj - Immunization history:: Adult Immunizations up to date. - Social history:: Smoking status: Patient/guardian denies using tobacco, Patient/guardian denies using alcohol. - Ebola Screening: : Patient negative for fever greater than or equal to 101.5 degrees Fahrenheit, and additional compatible Ebola Virus Disease symptoms Patient denies exposure to infectious person Patient denies travel to an Ebola-affected area in the 21 days before illness onset. ROS: 11:57 Constitutional: Negative for fever, chills, and weight loss, Eyes: Negative for injury, snw pain, redness, and discharge, ENT: Negative for injury, pain, and discharge, Neck: Negative for injury, pain, and swelling, Cardiovascular: Negative for chest pain, palpitations, and edema, Respiratory: Negative for shortness of breath, cough, wheezing, and pleuritic chest pain, Back: Negative for injury and pain, : Negative for injury, bleeding, discharge, and swelling, MS/Extremity: Negative for injury and deformity, Skin: Negative for injury, rash, and discoloration, Neuro: Negative for headache, weakness, numbness, tingling, and seizure. 11:57 Abdomen/GI: Positive for abdominal pain, nausea. Exam: 11:56 Constitutional: This is a well developed, well nourished patient who is awake, alert, snw and in mild to moderate acute distress. Head/Face: Normocephalic, atraumatic. Eyes: Pupils equal round and reactive to light, extra-ocular motions intact. Lids and lashes normal. Conjunctiva and sclera are non-icteric and not injected. Cornea within normal limits. Periorbital areas with no swelling, redness, or edema. ENT: Nares patent. No nasal discharge, no septal abnormalities noted. Tympanic membranes are normal and external auditory canals are clear. Oropharynx with no redness, swelling, or masses, exudates, or evidence of obstruction, uvula midline. Mucous membranes moist. Neck: Trachea midline, no thyromegaly or masses palpated, and no cervical lymphadenopathy. Supple, full range of motion without nuchal rigidity, or vertebral point tenderness. No Meningismus. Chest/axilla: Normal chest wall appearance and motion. Nontender with no deformity. No lesions are appreciated. Cardiovascular: Regular rate and rhythm with a normal S1 and S2. No gallops, murmurs, or rubs. Normal PMI, no JVD. No pulse deficits. Respiratory: Lungs have equal breath sounds bilaterally, clear to auscultation and percussion. No rales, rhonchi or wheezes noted. No increased work of breathing, no retractions or nasal flaring. Back: No spinal tenderness. No costovertebral tenderness. Full range of motion. Skin: Warm, dry with normal turgor. Normal color with no rashes, no lesions, and no evidence of cellulitis. MS/ Extremity: Pulses equal, no cyanosis. Neurovascular intact. Full, normal range of motion. Neuro: Awake and alert, GCS 15, oriented to person, place, time, and situation. Cranial nerves II-XII grossly intact. Motor strength 5/5 in all extremities. Sensory grossly intact. Cerebellar exam normal. Normal gait. 11:56 Abdomen/GI: Inspection: obese Bowel sounds: diminished, Palpation: mild abdominal tenderness, in the right upper quadrant, left upper quadrant and right lower quadrant, severe abdominal tenderness, in the left lower quadrant. Vital Signs: 11:42 BP 188 / 100; Pulse 82; Resp 18; Temp 97.9(O); Pulse Ox 98% on R/A; Weight 113.4 kg; hj Height 6 ft. 0 in. (182.88 cm); Pain 10/10; 12:00 BP 187 / 102 LA Supine (auto/lg); sv 12:28 BP 194 / 95 RA Supine (auto/lg); Pulse 87; Resp 20; Pulse Ox 96% on R/A; sv 12:31 Pulse Ox 89% on R/A; sv 12:32 Pain 8/10; sv 12:58 BP 189 / 95; Pulse 84; Resp 12; Pulse Ox 97% on 2 lpm NC; sv 13:24 BP 179 / 93; Pulse 85; Resp 16; Pulse Ox 98% on 2 lpm NC; sv 11:42 Body Mass Index 33.91 (113.40 kg, 182.88 cm) hj 12:31 Pt placed on O2 \T\ 2L per NC. O2 sat up to 97%. sv MDM: 11:45 Patient medically screened. snw 12:22 Data reviewed: vital signs, nurses notes. Data interpreted: Pulse oximetry: on room air snw is 98 %. Interpretation: normal. ED course: pt returned to room per stretcher from CT, fentanyl 50 mcg IV ordered for obvious pain. 02/02 11:47 Order name: Basic Metabolic Panel; Complete Time: 13:50 snw 02/02 11:47 Order name: BNP; Complete Time: 12:50 snw 02/02 11:47 Order name: CBC with Diff; Complete Time: 12:30 snw 02/02 11:47 Order name: Ckmb; Complete Time: 13:50 snw 02/02 11:47 Order name: CPK; Complete Time: 13:50 snw 02/02 11:47 Order name: Magnesium; Complete Time: 13:50 snw 02/02 11:47 Order name: PT-INR; Complete Time: 12:34 snw 02/02 11:47 Order name: Ptt, Activated; Complete Time: 12:34 snw 02/02 11:47 Order name: Troponin (emerg Dept Use Only); Complete Time: 13:44 snw 02/02 11:47 Order name: XRAY Chest (1 view); Complete Time: 12:27 snw 02/02 11:56 Order name: CT Aorta for Dissection; Complete Time: 12:27 snw 02/02 12:34 Order name: Urine Culture snw 02/02 13:08 Order name: Urine Dipstick--Ancillary (enter results) bd 02/02 11:47 Order name: NPO; Complete Time: 12:00 snw 02/02 11:47 Order name: Bilateral blood pressure; Complete Time: 12:28 snw 02/02 11:47 Order name: EKG; Complete Time: 11:48 snw 02/02 11:47 Order name: Cardiac monitoring; Complete Time: 11:49 snw 02/02 11:47 Order name: EKG - Nurse/Tech; Complete Time: 13:23 snw 02/02 11:47 Order name: IV Saline Lock; Complete Time: 12:10 snw 02/02 11:47 Order name: Labs collected and sent; Complete Time: 11:49 snw 02/02 11:47 Order name: O2 Per Protocol; Complete Time: 11:49 snw 02/02 11:47 Order name: O2 Sat Monitoring; Complete Time: 11:49 snw 02/02 11:47 Order name: Urine Dipstick-Ancillary (obtain specimen); Complete Time: 13:23 snw Administered Medications: 11:56 Drug: fentaNYL (PF) 25 mcg Route: IVP; Site: right antecubital; sv 12:28 Follow up: Response: No adverse reaction; No change in condition sv 12:27 Drug: fentaNYL (PF) 50 mcg Route: IVP; Site: right antecubital; sv 12:32 Follow up: Pain 8/10 Adult; Response: No adverse reaction; Pain is decreased sv 12:28 Drug: NS 0.9% 1000 ml Route: IV; Rate: 125 ml/hr; Site: right antecubital; sv 14:57 Follow up: Response: No adverse reaction; IV Status: Order to discontinue infusion; IV sv Intake: 300ml 12:40 Drug: Flomax 0.4 mg Route: PO; sv 13:22 Follow up: Response: No adverse reaction sv 12:41 Drug: TORadol 30 mg Route: IVP; Site: right antecubital; sv 13:22 Follow up: Response: No adverse reaction sv 14:40 Drug: fentaNYL (PF) 50 mcg Route: IM; Site: left gluteus; sv 14:57 Follow up: Response: No adverse reaction sv 14:40 Drug: Cipro 500 mg Route: PO; sv 14:57 Follow up: Response: No adverse reaction sv Disposition: 17:41 Co-signature as Attending Physician, Radu Perera MD. Disposition: 02/02/18 13:51 Discharged to Home. Impression: Hydronephrosis with renal and ureteral calculous obstruction. - Condition is Stable. - Discharge Instructions: Kidney Stones, Hydronephrosis, Dietary Guidelines to Help Prevent Kidney Stones. - Prescriptions for Zofran 4 mg Oral Tablet - take 1 tablet by ORAL route every 12 hours As needed; 20 tablet. Flomax 0.4 mg Oral Capsule, Sust. Release 24 hr - take 1 capsule by ORAL route once daily 1/2 hour following the same meal each day; 30 capsule. Cipro 500 mg Oral Tablet - take 1 tablet by ORAL route every 12 hours for 7 days; 14 tablet. - Medication Reconciliation Form, Thank You Letter, Antibiotic Education, Prescription Opioid Use form. - Follow up: Private Physician; When: 2 - 3 days; Reason: Recheck today's complaints, Continuance of care, Re-evaluation by your physician. Follow up: Emergency Department; When: As needed; Reason: Worsening of condition. Signatures: Dispatcher [employer] EDDenise Delacruz RN RN sv Therrien, Shelly, RECRUITMENT MANAGER-C RECRUITMENT MANAGER-Csnw Franky Adair RN RN hj Starr, Gregory, MD MD Corrections: (The following items were deleted from the chart) 11:58 11:56 Constitutional: This is a well developed, well nourished patient who is awake, snw alert, and in no acute distress. Head/Face: Normocephalic, atraumatic. Eyes: Pupils equal round and reactive to light, extra-ocular motions intact. Lids and lashes normal. Conjunctiva and sclera are non-icteric and not injected. Cornea within normal limits. Periorbital areas with no swelling, redness, or edema. ENT: Nares patent. No nasal discharge, no septal abnormalities noted. Tympanic membranes are normal and external auditory canals are clear. Oropharynx with no redness, swelling, or masses, exudates, or evidence of obstruction, uvula midline. Mucous membranes moist. Neck: Trachea midline, no thyromegaly or masses palpated, and no cervical lymphadenopathy. Supple, full range of motion without nuchal rigidity, or vertebral point tenderness. No Meningismus. Chest/axilla: Normal chest wall appearance and motion. Nontender with no deformity. No lesions are appreciated. Cardiovascular: Regular rate and rhythm with a normal S1 and S2. No gallops, murmurs, or rubs. Normal PMI, no JVD. No pulse deficits. Respiratory: Lungs have equal breath sounds bilaterally, clear to auscultation and percussion. No rales, rhonchi or wheezes noted. No increased work of breathing, no retractions or nasal flaring. Back: No spinal tenderness. No costovertebral tenderness. Full range of motion. Skin: Warm, dry with normal turgor. Normal color with no rashes, no lesions, and no evidence of cellulitis. MS/ Extremity: Pulses equal, no cyanosis. Neurovascular intact. Full, normal range of motion. Neuro: Awake and alert, GCS 15, oriented to person, place, time, and situation. Cranial nerves II-XII grossly intact. Motor strength 5/5 in all extremities. Sensory grossly intact. Cerebellar exam normal. Normal gait. snw 12:06 11:47 Stone Protocol+CT.RAD.BRZ ordered. EDMS EDMS 14:58 13:51 02/02/2018 13:51 Discharged to Home. Impression: Hydronephrosis with renal and sv ureteral calculous obstruction. Condition is Stable. Forms are Medication Reconciliation Form, Thank You Letter, Antibiotic Education, Prescription Opioid Use. Follow up: Private Physician; When: 2 - 3 days; Reason: Recheck today's complaints, Continuance of care, Re-evaluation by your physician. Follow up: Emergency Department; When: As needed; Reason: Worsening of condition. snw
--- NOTE | 2018-02-02 13:51 | ER ---
Nurse's Notes [facility] Name: Francesco Null Age: 72 yrs Sex: Male : 1945 Arrival Date: 02/02/2018 Time: 11:38 Bed 18 Private MD: Diagnosis: Hydronephrosis with renal and ureteral calculous obstruction Presentation: 02/02 11:38 Presenting complaint: Patient states: about 2-3 hours ago, i think i passed out a hj kidney stone, my L flank is hurting and the pain moves to the front and to the legs; reports nausea and vomiting; pain is 10/10;. Transition of care: patient was not received from another setting of care. Onset of symptoms was February 02, 2018. Risk Assessment: Do you want to hurt yourself or someone else? Patient reports no desire to harm self or others. Initial Sepsis Screen: Does the patient meet any 2 criteria? No. Patient's initial sepsis screen is negative. Does the patient have a suspected source of infection? No. Patient's initial sepsis screen is negative. Care prior to arrival: None. 11:38 Method Of Arrival: Ambulatory 11:38 Acuity: MARIELLE 3 hj Triage Assessment: 11:41 General: Appears in no apparent distress. uncomfortable, Behavior is cooperative, hj appropriate for age, anxious. Pain: Complains of pain in left low back Pain radiates to left lower quadrant. GI: Reports lower abdominal pain, nausea, vomiting. Historical: - Allergies: 11:41 No Known Allergies; hj - PMHx: 11:41 Kidney stones; hj - PSHx: 11:41 L knee surgery; hj - Immunization history:: Adult Immunizations up to date. - Social history:: Smoking status: Patient/guardian denies using tobacco, Patient/guardian denies using alcohol. - Ebola Screening: : Patient negative for fever greater than or equal to 101.5 degrees Fahrenheit, and additional compatible Ebola Virus Disease symptoms Patient denies exposure to infectious person Patient denies travel to an Ebola-affected area in the 21 days before illness onset. Screenin:42 Abuse screen: Denies threats or abuse. Denies injuries from another. Nutritional hj screening: No deficits noted. Tuberculosis screening: No symptoms or risk factors identified. Fall Risk None identified. Assessment: 11:42 GI: Bowel sounds present X 4 quads. Abd is soft Abdomen is tender to palpation. hj 12:29 Reassessment: Patient appears in no apparent distress at this time. No changes from previously documented assessment. Patient and/or family updated on plan of care and expected duration. Pain level reassessed. Patient is alert, oriented x 3, equal unlabored respirations, skin warm/dry/pink. 14:04 Reassessment: Patient appears in no apparent distress at this time. Patient and/or sv family updated on plan of care and expected duration. Pain level reassessed. Patient is alert, oriented x 3, equal unlabored respirations, skin warm/dry/pink. Pt waiting for spouse to get back to drive him home. Patient states feeling better. Patient states symptoms have improved. Vital Signs: 11:42 BP 188 / 100; Pulse 82; Resp 18; Temp 97.9(O); Pulse Ox 98% on R/A; Weight 113.4 kg; hj Height 6 ft. 0 in. (182.88 cm); Pain 10/10; 12:00 BP 187 / 102 LA Supine (auto/lg); sv 12:28 BP 194 / 95 RA Supine (auto/lg); Pulse 87; Resp 20; Pulse Ox 96% on R/A; sv 12:31 Pulse Ox 89% on R/A; sv 12:32 Pain 8/10; sv 12:58 BP 189 / 95; Pulse 84; Resp 12; Pulse Ox 97% on 2 lpm NC; sv 13:24 BP 179 / 93; Pulse 85; Resp 16; Pulse Ox 98% on 2 lpm NC; sv 11:42 Body Mass Index 33.91 (113.40 kg, 182.88 cm) hj 12:31 Pt placed on O2 \T\ 2L per NC. O2 sat up to 97%. sv ED Course: 11:38 Patient arrived in ED. hj 11:40 Triage completed. hj 11:41 Arm band placed on right wrist. hj 11:45 Mali Bhardwaj F[facility]-C [facility]. snw 11:45 Radu Perera MD is Attending Physician. snw 11:53 Placed in gown. Bed in low position. Adult w/ patient. nurse monitoring on. Pulse ox on. tw2 NIBP on. 11:[address] kw1 11:[address] via stretcher. sv 11:59 Maggie, Denise, RN is Primary Nurse. sv 12:00 Initial lab(s) drawn, by [facility], sent to lab. Inserted saline lock: 20 gauge in right 5 antecubital area, using aseptic technique. Blood collected. 12:02 Basic Metabolic Panel Sent. 5 12:02 BNP Sent. 5 12:02 CBC with Diff Sent. [facility] 12:02 Ckmb Sent. [facility] 12:02 CPK Sent. [facility] 12:02 Magnesium Sent. [facility] 12:02 PT-INR Sent. [facility] 12:02 Ptt, Activated Sent. [facility] 12:03 Troponin (emerg Dept Use Only) Sent. 5 12:10 CT Aorta for Dissection In Process Unspecified. EDMS 12:10 CT completed. vm2 12:16 Patient moved to radiology. 1 12:17 X-ray completed. Patient tolerated procedure well. Patient moved back from radiology. 1 12:18 XRAY Chest (1 view) In Process Unspecified. EDMS 12:53 EKG done, by field technical support consultant. reviewed by Mali MACIAS. at1 14:58 No provider procedures requiring assistance completed. IV discontinued, intact, sv bleeding controlled, No redness/swelling at site. Pressure dressing applied. Administered Medications: 11:56 Drug: fentaNYL (PF) 25 mcg Route: IVP; Site: right antecubital; sv 12:28 Follow up: Response: No adverse reaction; No change in condition sv 12:27 Drug: fentaNYL (PF) 50 mcg Route: IVP; Site: right antecubital; sv 12:32 Follow up: Pain 8/10 Adult; Response: No adverse reaction; Pain is decreased sv 12:28 Drug: NS 0.9% 1000 ml Route: IV; Rate: 125 ml/hr; Site: right antecubital; sv 14:57 Follow up: Response: No adverse reaction; IV Status: Order to discontinue infusion; IV sv Intake: 300ml 12:40 Drug: Flomax 0.4 mg Route: PO; sv 13:22 Follow up: Response: No adverse reaction sv 12:41 Drug: TORadol 30 mg Route: IVP; Site: right antecubital; sv 13:22 Follow up: Response: No adverse reaction sv 14:40 Drug: fentaNYL (PF) 50 mcg Route: IM; Site: left gluteus; sv 14:57 Follow up: Response: No adverse reaction sv 14:40 Drug: Cipro 500 mg Route: PO; sv 14:57 Follow up: Response: No adverse reaction sv Intake: 14:57 IV: 300ml; Total: 300ml. sv Outcome: 13:51 Discharge ordered by . snw 14:58 Discharged to home ambulatory, with family. sv 14:58 Condition: stable 14:58 Discharge instructions given to patient, Instructed on discharge instructions, follow up and referral plans. medication usage, Demonstrated understanding of instructions, follow-up care, medications, Prescriptions given X 3. 14:58 Patient left the ED. sv Signatures: Dispatcher [employer] EDMS Denise Serrano RN RN sv Mali Bhardwaj, APARTMENT MANAGER-C APARTMENT MANAGER-Csnw Renate Dennison mh1 Cheryl peace, moving consultant EKG Tat1 Franky Adair RN RN Georgiana Pulido RN RN 2 Marisol Diaz [facility] Merlene Farr 2 Mariza Benson kw1 Corrections: (The following items were deleted from the chart) 12:16 12:10 Patient moved back from CT. 2 kw1
[2018-02-02] MEDS ORDERED: CIPROFLOXACIN HCL 500 MG TAB ONE (13:58)
[2018-02-02 15:11] VITALS: TEMP 97.9
[2018-02-02 15:17] VITALS: BP 179/93; O2SAT 98
--- NOTE | 2018-02-02 20:37 | EKG ---
Test Date: 2018-02-02 Test Time: 12:45:55 Assistant Center Manager: MADELAINE MEASUREMENT RESULTS: Intervals: Rate: 85 MN: 228 QRSD: 108 QT: 402 QTc: 478 [place]: P: 35 MN: 228 QRS: -2 T: 1 INTERPRETIVE STATEMENTS: Sinus rhythm with 1st degree AV block Minimal voltage criteria for LVH, may be normal variant Borderline ECG Compared to ECG 04/21/2007 08:15:06 First degree AV block now present Electronically Signed On 02-02-18 20:36:00 CDT by Malcolm Coles
== END 2018-02-02 14:58 | disposition home or self-care (01) ==
LOC: ER 11:35
DX: N13.2 Hydronephrosis with renal and ureteral calculous obstruction (principal)
CPT/HCPCS: 36415; 71045; 71275; 74175; 80048; 81003; 82550; 82553; 83735; 83880; 84484; 85025; 85610; 85730; 87086; 87088; 93005; J3010 ×2; J7030; Q9967; 96361; 96372; 96374; 96375; 99285

== ENCOUNTER 2023-02-24 16:50 | Emergency (ER) | payer OTHER ==
--- OUTSIDE RECORDS SUMMARY | 2023-02-24 16:54 | XMS REPORT | Continuity of Care Document ---
:1945 Author Organization [facility] t Address [address] [facility] [address] [place] [address] Care Team Providers Name Role Phone Saud MORRIS, John Cortez Primary Care Physician John Lopez MD Attending Clinician Marciano Bergeron MD Attending Clinician Terri Crocker MD Attending Clinician Nidhi Hall MA Attending Clinician Unavailable Pepito Lira NP Attending Clinician [phone] Luciana Mccarty Attending Clinician Unavailable Lakisha Durant CPhT Attending Clinician Unavailable Latasha Maldonado MA Attending Clinician Unavailable STACIA MENCHACA Attending Clinician Unavailable MONICA COVINGTON Attending Clinician Unavailable STEPHIE JOSÉ Attending Clinician Unavailable KAYLEEN HINOJOSA Attending Clinician Unavailable TERRA LOO Attending Clinician Unavailable CANDE KNIGHT Attending Clinician Unavailable MD CANDE KNIGHT Attending Clinician Unavailable SHELL FIERRO Attending Clinician Unavailable MD TERRA LOO Attending Clinician Unavailable SWETHA BURNS Attending Clinician Unavailable CANDE KNIGHT Admitting Clinician Unavailable MD CANDE KNIGHT Admitting Clinician Unavailable MARIELA BROWN Admitting Clinician Unavailable MD TERRA LOO Admitting Clinician Unavailable SWETHA BURNS Admitting Clinician Unavailable Payers Payer Name Policy Type Policy Number Effective Date Expiration Date S sidra Problems Condition Condition Condition Status Onset Resolution Last Treating Co mments Source Name Details Category Date Date Treatment Clinician Date Inguinal Inguinal Disease Active 2020-08 [facility] di hernia hernia 0-19 st 00:00: Hospita 00 l Secondary Secondary Disease Active Met hodi polycythem polycythem 9[address] st ia ia 00:00: Hospita 00 l 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 [address] st knee knee 00:00: Hospita replacemen replacemen 00 l t t Allergies, Adverse Reactions, Alerts Allergy Allergy Status Severity Reaction(s) Onset Inactive Treating Comm ents Source Name Type Date Date Clinician No Known DA Active [facility] 12[facility]27 [place] [facility] 00:00: [address] NKDA DA Active [facility] 12-18 00:00: [address] Family History Family Member Diagnosis Comments Start Date Stop Date Source Natural brother Cancer [facility] Natural father Cancer [facility] Natural mother Cancer [facility] Social History Social Habit Start Date Stop Date Quantity Comments Source Gender identity 2019-12-22 Identifies as Method ist 11:00:00 male gender Hospital (finding) Sexual orientation 2019-12-22 Method [facility] 11:00:00 Hospital Alcohol intake 2022-11-01 2022-11-01 Current drinker Metho dist 00:00:00 00:00:00 of [facility] (finding) History of Social 2022-11-01 2022-11-[address] function 00:00:00 00:00:00 Hospital Tobacco use and 2022-09-09 2022-09-09 Smokeless tobacco Me thodist exposure 00:00:00 00:00:00 non-user Hospital Alcohol Comment 2019-10-26 2019-10-26 social [facility] 00:00:00 00:00:00 Hospital Sex Ass[birth year] At [birth year] [facility] 00:00:00 00:00:00 Hospital Smoking Status Start Date Stop Date Source Never smoked tobacco [facility] Medications Ordered Filled Start Stop Current Ordering Indication Dosage Frequency Signature Comments Components Source Medication Medication Date Date Medication? Clinician (SIG) Name Name HYDROcodone Yes [id number] 1{tbl} Q6H Take 1 M ethodi -acetaminop 7-[address] Always Prepped ([employer]) 00:00: mouth Hospi ta 10-325 mg 00 every 6 l per tablet (six) hours as needed for moderate pain .chronic pain. Max Daily Amount: 4 tablets cyclobenzap 2022-0 Yes [id number] 5mg Q.5D TAKE 1 Methodi rine 6-19 TABLET (5 st (FLEXERIL) 00:00: MG TOTAL) Ho spita 5 mg tablet 00 BY MOUTH 2 l (TWO) TIMES A DAY NEEDED FOR MUSCLE SPASMS. HYDROcodone 2022- [place] [id number] 1{tbl} Q6H Take 1 Methodi -acetaminop 5-11 07-[address] hen ([employer]) 00:00: 00:00 mouth Hosp ethan 10-325 mg 00 :00 every 6 l per tablet (six) hours as needed for moderate pain .chronic pain. Max Daily Amount: 4 tablets cyclobenzap 2022-0 2022- No [id number] 5mg Q.5D TAKE 1 Methodi rine 4-26 06-19 TABLET (5 st (FLEXERIL) 00:00: 00:00 MG TOTAL) H ospita 5 mg tablet 00 :00 BY MOUTH 2 l (TWO) TIMES A DAY NEEDED FOR MUSCLE SPASMS. cyclobenzap 2022-0 2022- No [id number] 5mg Q.5D TAKE 1 Methodi rine 3-20 04-26 TABLET (5 st (FLEXERIL) 00:00: 00:00 MG TOTAL) H ospita 5 mg tablet 00 :00 BY MOUTH 2 l (TWO) TIMES A DAY NEEDED FOR MUSCLE SPASMS. cyclobenzap 2022- No [id number] 5mg Q.5D TAKE 1 Methodi rine 2-21 03-20 TABLET (5 st (FLEXERIL) 00:00: 00:00 MG TOTAL) H ospita 5 mg tablet 00 :00 BY MOUTH 2 l (TWO) TIMES A DAY NEEDED FOR MUSCLE SPASMS. [place]DROcodone 2022- [place] [id number] 1{tbl} Q6H Take 1 Methodi -acetaminop 2-14 05-[address] hen ([employer]) 00:00: 00:00 mouth Hosp ethan 10-325 mg 00 :00 every 6 l per tablet (six) hours as needed for moderate pain .chronic pain. Max Daily Amount: 4 tablets cyclobenzap 2022- No [id number] 5mg Q.5D Take 1 Methodi rine 1-23 02-21 tablet (5 st (FLEXERIL) 00:00: 00:00 mg total) H ospita 5 mg tablet 00 :00 by mouth 2 l (two) times a day as needed for muscle spasms. HYDROcodone 2021-08- No [id number] 1{tbl} Q6H Take 1 Methodi -acetaminop 2-28 02-[address] hen ([employer]) 00:00: 00:00 mouth Hosp ethan 10-325 mg 00 :00 every 6 l per tablet (six) hours as needed for moderate pain .chronic pain. Max Daily Amount: 4 tablets HYDROcodone 2021-08- No [id number] 1{tbl} Q6H Take 1 Methodi -acetaminop 0-04 12-[address] hen ([employer]) 00:00: 00:00 mouth Hosp ethan 10-325 mg 00 :00 every 6 l per tablet (six) hours as needed for moderate pain .chronic pain. Max Daily Amount: 4 tablets traZODone 2021- Yes [id number] TAKE 1 M ethodi (DESYREL) 9-[address] 100 MG 00:00: MOUTH Hospita tablet 00 EVERY DAY l NIGHTLY HYDROcodone 2021- No [id number] 1{tbl} Q8H Take 1 Methodi -acetaminop 6-20 07-[address] hen (NORCO) 00:00: 04:59 mouth Hosp ethan 10-325 mg 00 :00 every 8 l per tablet (eight) hours as needed for moderate pain for up to 30 days .chronic pain. Max Daily Amount: 3 tablets traZODone 2021- No [id number] TAKE 1 Methodi (DESYREL) 2-22 09-[address] 100 MG 00:00: 00:00 MOUTH Hospita tablet 00 :00 NIGHTLY l FOR 30 DAYS. clopidogreL 2020-08 Yes TAKE 1 Meth abimbola (PLAVIX) 75 2-[address] mg tablet 00:00: MOUTH Hospita 00 EVERY DAY l losartan Yes 100mg QD Take 1 Method i (COZAAR) 2-[address] 100 MG 00:00: (100 mg Hospita tablet 00 total) by l mouth daily. pravastatin Yes 40mg QD Take 1 Meth abimbola (PRAVACHOL) 7-31 tablet (40 st 40 MG 00:00: mg total) Hospita tablet 00 by mouth l daily. metoprolol Yes 100mg QD Take 2 Meth [facility] succinate 3-[address] XL 00:00: (100 mg Hospita (TOPROL-XL) 00 total) by l 50 mg 24 hr mouth tablet daily. Immunizations Ordered Immunization Filled Immunization Date Status Commen ts Source Name Name PFIZER COVID-19 MRNA 2021-09-11 Completed Meth odist VACCINATION 00:00:00 [facility] PFIZER COVID-19 MRNA 2020-09-30 Completed Meth odist VACCINATION 00:00:00 [facility] PFIZER COVID-19 MRNA 2020-09-09 Completed Meth odist VACCINATION 00:00:00 Hospital FLUZONE QUAD 2019-05-23 Completed [facility] 00:00:00 Hospital Pneumococcal 2018-08-23 Completed [facility] Conjugate 13-Valent 00:00:00 [facility] robbie FLUZONE HIGH-DOSE PF 2017-05-01 Completed Meth odist 00:00:00 Hospital FLUZONE HIGH-DOSE PF 2017-05-01 Completed Meth odist 00:00:00 Hospital Vital Signs Vital Name Observation Time Observation Value Comments Source Body height 2022-11-01 17:40:00 182.9 cm [facility] Body weight 2022-11-01 17:40:00 99.791 kg [facility] BMI 2022-11-01 17:40:00 29.84 kg/m2 [facility] Systolic blood 2022-09-09 19:18:00 173 mm[Hg] [facility] pressure Diastolic blood 2022-09-09 19:18:00 89 mm[Hg] [facility] pressure Heart rate 2022-09-09 19:18:00 67 /min [facility] Procedures Procedure Date / Time Performing Clinician Source Performed XR SHOULDER 2+ VW LEFT 2022-11-01 17:31:10 [facility] CT ARTHROCENTESIS 2022-11-01 17:30:00 [facility] [place] [facility]IR&/INJ MAJOR JT/BURSA W/O US MRI SHOULDER WO CONTRAST 2022-10-16 18:42:24 John Lopez [facility] LEFT Plan of Care Planned Activity Planned Date Details Comments Source Future Scheduled 2023-02-20 65+ PNEUMOCOCCAL [facility] Test 15:45:13 VACCINE (2 - PPSV23 if available, else PCV20) [code = 65+ PNEUMOCOCCAL VACCINE (2 - PPSV23 if available, else PCV20)] Future Scheduled 2023-02-20 COVID-19 VACCINE ( - [facility] Test 15:45:13 Pfizer series) [code = COVID-19 VACCINE (4 - Pfizer series)] Future Scheduled 2023-02-20 INFLUENZA VACCINE [facility] Test 15:45:13 [code = INFLUENZA VACCINE] Future Scheduled 2023-02-20 Screening for [facility] Test 15:45:13 malignant neoplasm of colon (procedure) [code = 799300069] Future Scheduled 2023-02-20 Screening for [facility] Test 15:45:13 malignant neoplasm of colon (procedure) [code = 769615895] Future Scheduled 2023-02-20 Screening for [facility] Test 15:45:13 malignant neoplasm of colon (procedure) [code = 148887043] Future Scheduled 2023-02-20 SHINGLES VACCINES (1 [facility] Test 15:45:13 of 2) [code = SHINGLES VACCINES (1 of 2)] Future Scheduled 2023-02-20 [facility] Test 15:45:13 malignant neoplasm of colon (procedure) [code = 088515780] Future Scheduled 2023-02-20 [facility] Test 15:45:13 malignant neoplasm of colon (procedure) [code = 358345617] Encounters Start End Encounter Admission Attending Care Care Encounter Source Date/Time Date/Time Type Type Clinicians Facility Department ID 2023-02-20 2023-02-20 Orders Saud, 1.2.840.1 [id number] Methodi 00:00:00 00:00:00 Only John Cortez 18082.1.[address] 3.430.2.7 Hospit a .3.028867 l .8 2023-02-01 2023-02-01 Refill Saud 1.2.840.1 [id number] Methodi 00:00:00 00:00:00 John Cortez [address]50.1.[address] 3.430.2.7 Hospit a .3.269577 l .8 2023-01-23 2023-01-23 Transcribe Marciano Bergeron 1.2.840.1 [id number] Methodi 00:00:00 00:00:[address] 3.430.2.7 Hospit a .3.393741 l .8 2022-12-26 2022-12-26 Orders Saud 1.2.840.1 [id number] Methodi 00:00:00 00:00:00 Only John Cortez 79372.1.[address] 3.430.2.7 Hospit a .3.942597 l .8 2022-12-11 2022-12-11 Refill Saud 1.2.840.1 [id number] Methodi 00:00:00 00:00:00 John Cortez 72753.1.[address] 3.430.2.7 Hospit a .3.212813 l .8 2022-11-01 2022-11-08 Office Lizzette 1.2.840.1 [id number] Methodi 12:30:00 15:54:28 Visit Terri Duffy 28607.1.1 234 s t 3.430.2.7 Hospit a .3.223384 l .8 2022-11-04 2022-11-04 Refill Lopez, 1.2.840.1 [id number] Methodi 00:00:00 00:00:00 John Cortez 90472.1.[address] 3.430.2.7 Hospit a .3.010188 l .8 2022-11-01 2022-11-01 Outpatient LIZZETTE [facility] [id number] Shaniko 00:00:00 00:00:00 TRERI [address] 2022-11-01 2022-11-01 Travel 1.2.840.1 1.2.325.808 [id number] Methodi 00:00:00 00:00:[address] 3.430.2.7 0.2.7.3.698 Ho spita .3.678046 084.8 l .8 2022-11-01 2022-11-01 Outpatient LIZZETTE [facility] [id number] [id number] Shaniko 00:00:00 00:00:00 TERRI [address] 2022-10-31 2022-10-31 Orders Santuario, 1.2.840.1 [id number] Methodi 00:00:00 00:00:00 Only Nidhi 71606.1.[address] 3.430.2.7 Hospit a .3.756285 l .8 2022-10-20 2022-10-20 Refill Nobles-Au 1.2.840.1 [id number] Methodi 00:00:00 00:00:00 Pepito [address]13.1.[address] 3.430.2.7 Hospit a .3.927989 l .8 2022-10-16 2022-10-16 [facility] [id number] Shaniko 00:00:00 00:00:00 JOHN [address] 2022-10-07 2022-10-07 Refill Lopez, 1.2.840.1 [id number] Methodi 00:00:00 00:00:[address] John[address]la Cortez [address].1[address] 3.430.2.7 Hospit a .3.621663 l .8 2022-10-01 2022-10-01 Orders Lopez, 1.2.840.1 [id number] Methodi 00:00:00 00:00:00 Only Johnlyla Cortez 34962.1.[address] 3.430.2.7 Hospit a .3.199889 l .8 2022-10-01 2022-10-01 Telephone Lul, 1.2.840.1 [id number] Methodi 00:00:00 00:00:[address] 3.430.2.7 Hospit a .3.744340 l .8 2022-09-09 2022-09-09 Office Lopez, 1.2.840.1 [id number] Methodi 13:20:00 13:41:36 Visit John Cortez 95589.1.[address] 3.430.2.7 Hospit a .3.463380 l .8 2022-09-09 2022-09-09 Outpatient SAUD, [facility] [id number] Shaniko 00:00:00 00:00:[address] JOHN [address] 2022-08-14 2022-08-14 Telephone Lopez, 1.2.840.1 [id number] Methodi 14:40:00 16:29:02 Consult Johnlyla Cortez 57413.1.[address] 3.430.2.7 Hospit a .3.445631 l .8 2022-08-14 2022-08-14 Outpatient SAUD, [facility] [id number] Shaniko 00:00:00 00:00:00 JOHN [address] 2022-05-28 2022-05-28 Patient Carleen, 1.2.840.1 [id number] Methodi 00:00:00 00:00:00 Outreach Lakisha Desaia 43481.1.[address] 3.430.2.7 Hospit a .3.676043 l .8 2022-05-21 2022-05-21 Telemedici Lopez, 1.2.840.1 [id number] Methodi 15:00:00 15:01:17 ne John Cortez 43874.1.[address] 3.430.2.7 Hospit a .3.590604 l .8 2022-05-21 2022-05-21 Travel 1.2.840.1 1.2.799.121 [id number] [id number] Methodi 00:00:00 00:00:[address] 3.430.2.7 0.2.7.3.698 Ho spita .3.251465 084.8 l .8 2022-05-21 2022-05-21 [facility] [id number] Shaniko 00:00:00 00:00:00 JOHN [address] 2022-05-20 2022-05-20 Travel 1.2.840.1 1.2.508.789 [id number] Methodi 00:00:00 00:00:[address] 3.430.2.7 0.2.7.3.698 Ho spita .3.431321 084.8 l .8 2022-05-17 2022-05-17 Refill Maldonado, 1.2.840.1 [id number] Methodi 00:00:00 00:00:[address] 3.430.2.7 Hospit a .3.402318 l .8 2022-05-02 2022-05-02 Patient Carleen, 1.2.840.1 [id number] Methodi 00:00:00 00:00:00 Outreach Lakisha Desaia 39789.1.[address] 3.430.2.7 Hospit a .3.362614 l .8 2022-04-21 2022-04-21 Refill Saud, 1.2.840.1 [id number] Methodi 00:00:00 00:00:00 John J. 50335.1.1 861 3.430.2.7 Hospit a .3.601534 l .8 2022-02-04 2022-02-04 Outpatient SAUD, [facility] [id number] Shaniko 00:00:00 00:00:00 JOHN 944 Method i 2021-09-13 2021-09-13 Outpatient SAUD, [facility] [id number] Shaniko 00:00:00 00:00:00 JOHN 683 Method i 2021-06-05 2021-06-05 Outpatient BERNARDA, [facility] [id number] Shaniko 00:00:00 00:00:00 STACIA 015 Method i 2021-04-25 2021-04-25 Outpatient ADRIA, [facility] [id number] 235 Shaniko 00:00:00 00:00:00 MONICA 493 Method i 2021-04-12 2021-04-12 Outpatient STEPHIE JOSÉ [facility] [id number] Shaniko 00:00:00 00:00:00 887 Method i 2021-02-08 2021-02-08 Outpatient SAUD, [facility] [id number] Shaniko 00:00:00 00:00:00 JOHN 563 Method i 2020-12-20 2020-12-20 Outpatient KAYLEEN HINOJOSA [facility] [id number] Shaniko 00:00:00 00:00:00 129 Method i 2020-12-15 2020-12-15 Outpatient BISMUTH, [facility] [id number] Shaniko 00:00:00 00:00:00 TERRA 528 Method i 2020-12-06 2020-12-06 Outpatient KAYLEEN HINOJOSA [facility] [id number] Shaniko 00:00:00 00:00:00 673 Method i 2020-12-06 2020-12-06 Outpatient KAYLEEN HINOJOSA [facility] [id number] Shaniko 00:00:00 00:00:[address] 2020-11-23 2020-11-23 Outpatient BISMUTH, [facility] [id number] Shaniko 00:00:00 00:00:00 TERRA [address] 2020-11-13 2020-11-13 Outpatient LOPEZ, [facility] [id number] Shaniko 00:00:00 00:00:00 JOHN [address] 2020-09-30 2020-09-30 Outpatient [facility] [id number] Shaniko 00:00:00 00:00:[address] 2020-09-09 2020-09-09 Outpatient [facility] [id number] Shaniko 00:00:00 00:00:00 518 Method i 2020-07-24 2020-07-24 Outpatient IMPERIAL-AU [facility] [id number] Shaniko 00:00:00 00:00:00 PEPITO WATTS 933 Me thodi 2020-07-05 2020-07-07 Outpatient CANDE KNIGHT [facility] 064 [id number] Shaniko 00:00:00 00:00:[address] 2020-07-05 2020-07-05 Outpatient STEPHIE JOSÉ [facility] [id number] Shaniko 00:00:00 00:00:00 069 Method i 2020-07-04 2020-07-05 Inpatient SRI, [facility] [id number] Shaniko 00:00:00 00:00:00 SHELL [address] 2020-06-29 2020-06-29 Outpatient BISMUTH, [facility] [id number] Shaniko 00:00:00 00:00:00 TERRA [address] 2020-06-29 2020-06-29 Outpatient BISMUTH, [facility] [id number] Shaniko 00:00:00 00:00:00 TERRA [address] 2020-06-29 2020-06-29 Outpatient BISMUTH, [facility] [id number] Shaniko 00:00:00 00:00:00 TERRA [address] 2020-06-22 2020-06-22 Outpatient BISMUTH, [facility] [id number] Shaniko 00:00:00 00:00:00 TERRA [address] 2020-06-19 2020-06-19 Outpatient ODHAV, MARCIANO [facility] [id number] Shaniko 00:00:00 00:00:[address] 2020-05-25 2020-05-25 Outpatient LOPEZ, [facility] [id number] Shaniko 00:00:00 00:00:00 JOHN [address] 2019-12-22 2019-12-22 Outpatient LOPEZ, [facility] [id number] Shaniko 00:00:00 00:00:00 JOHN [address] 2019-12-08 2019-12-08 Outpatient LOPEZ, [facility] [id number] Shaniko 00:00:00 00:00:00 JOHN [address] 2019-10-28 2019-10-29 Outpatient MINEO, [facility] [id number] Shaniko 00:00:00 00:00:00 SWETHA [address] 2019-10-26 2019-10-26 Outpatient MINEO, [facility] [id number] Shaniko 00:00:00 00:00:00 SWETHA [address] Results Test Description Test Time Test Comments Results Result Comments Source SARS-CoV-2 (COVID-19) RNA [Presence] in Respiratory sp ecimen by 2020-07-05 22:55:02 TAD with probe detection Test Item Value Reference Range Interpretation Comme nts SARS-CoV-2 (COVID-19) RNA [Presence] in Respiratory Not detected No t-Detected specimen by TAD with probe detection (test code = 76357-2) [facility]-CoV-2 (COVID-19) RNA [Presence] in Respiratory specimen by TAD with probe [id number] 23:25:30 Test Item Value Reference Range Interpretation Comments SARS-CoV-2 (COVID-19) RNA Not detected Not-Detected [Presence] in Respiratory specimen by TAD with probe detection (test code = 94231-6) [facility] METABOLIC [id number] 14:21:00 Test Item Value Reference Range Interpretation Comments SODIUM (test code = 141 MMOL/L 137-145 N NA) POTASSIUM (test code = 3.7 MMOL/L 3.5-5.1 N K) CHLORIDE (test code = 98 MMOL/L 98-107 N CL) CARBON DIOXIDE (test 35 MMOL/L 22-30 H code = CO2) GLUCOSE (test code = 92 MG/DL 74-106 N GLU) BLOOD UREA NITROGEN 12 MG/DL 9-20 N (test code = BUN) GLOMERULAR FILTRATION 60 Report ing units: RATE (test code = GFR) ml/mi n/1.73 m2 (Modified MDRD Formula)Referen ce Range: > or = 6 0 ml/min/1.73 m2 CREATININE (test code 1.20 MG/DL 0.66-1.25 N = CREAT) CALCIUM (test code = 9.5 MG/DL 8.4-10.2 N CA) CBC W/AUTO [id number] 14:06:00 Test Item Value Reference Range Interpretation Comments WHITE BLOOD CELL (test code = 16.4 K/MM3 3.8-9.8 H WBC) RED BLOOD CELL (test code = 5.88 M/MM3 3.95-5.67 H RBC) HEMOGLOBIN (test code = HGB) 17.9 G/DL 12.4-16.7 H HEMATOCRIT (test code = HCT) 53.8 % 35.9-49.5 H MEAN CELL VOLUME (test code = 92 fL 81.7-96.1 N MCV) MEAN CELL HGB (test code = MCH) 30.4 pg 27.6-33.2 N MEAN CELL HGB CONCETRATION 33.3 % 32.9-35.5 N (test code = MCHC) RED CELL DISTRIBUTION WIDTH 12.5 % 12.1-15.2 N (test code = RDW) PLATELET COUNT (test code = 208 K/MM3 129-368 PLT) MEAN PLATELET VOLUME (test code 9.4 fl 7.4-10.4 N = MPV) NEUTROPHIL % (test code = NT%) 78.0 % 43-75 H IMMATURE GRANULOCYTE % (test 0.5 % 0.0-2.0 N code = IG%) LYMPHOCYTE % (test code = LY%) 13.2 % 14-44 L MONOCYTE % (test code = MO%) 7.4 % 4-13 N EOSINOPHIL % (test code = EO%) 0.7 % 0-6 N BASOPHIL % (test code = BA%) 0.2 % 0-2 N NUCLEATED RBC % (test code = 0.0 % 0-1.0 N NRBC%) NEUTROPHIL # (test code = NT#) 12.82 K/mm3 2.0-7.6 H IMMATURE GRANULOCYTE # (test 0.08 x10 3/uL 0-0.03 H code = IG#) LYMPHOCYTE # (test code = LY#) 2.17 K/mm3 1.0-3.8 N MONOCYTE # (test code = MO#) 1.21 K/mm3 0.1-0.8 H EOSINOPHIL # (test code = EO#) 0.11 K/mm3 0.0-0.2 N BASOPHIL # (test code = BA#) 0.03 K/mm3 0.0-0.2 N NUCLEATED RBC # (test code = 0.00 K/mm3 0.0-0.1 N NRBC#) ARTERY,[id number] 11:53:00 RUN DATE: 12/28/18 [place] [employer] [facility] PAGE 1 RUN TIME: 1154 Specimen Inquiry RUN USER: INTERFACE PATIENT: FRANCESCO NULL LOC: NeelIMU U #: [id number] AGE/SX: 73/M ROOM: [facility] RE12/25/18[facility] DR: Jonny Berg MD : 49 BED: A DIS: STATUS: ADM IN TLOC: SPEC #: [id number] RECD: 12/25/18 STATUS: ANITA MAHONEY #: [id number] MADALYN: 12/25/[address] [facility] [address]: Jonny Berg MD ENTERED: 12/25/18 SP TYPE: ARTERY, PL OTHR DR: Dina Tinsley MD, Nioti R MD Pepper, Gregory S MDORDERED: DECAL, SURG PATH LVL 3, SURG PATH LVL 4 CODES: [id number] - PLAQUE, NOS [id number] - ARTERY, NOS [id number] - CAROTID ARTERYATHEROSCLEROSIS [id number] - CERVIX NEOPLASM, MALIG [id number] - CERVIX EXCISIONAL BIOP [id number] - LYMPH NODE, NOS COPIES TO: Dina Tinsley MD [address] [place] [address] [address] [place] [address] [email or web address] [address] [place] [address] [place] [address] [facility] [address] [place] [address] [place] [address] [facility] [address] [place] [id number] ICD CODES: 440 - PROCEDURES: DECAL (12/28/18-839) SURG PATH LVL 3 (12/25/18) SURG PATH LVL 4 (12/25/18) TISSUES: A. ARTERY, NOS - LT CAROTID PAQUEB. LYMPH NODE, NOS - LT CERVICAL LYMPH NODE CONTINUED ON NEXT PAGE RUN DATE: 12/28/18 [facility] PAGE 2RUN TIME: 1154 Specimen Inquiry RUN USER: INTERFACE SPEC #: [id number]:[place]:[id number] PATIENT: FRANCESCO NULL #[id number] (Continued) CLINICAL HISTORY CAROTID STENOSIS CPT CODES CPT CODE(S): 35387 , 69315 , 66324 , , , , FINAL DIAGNOSIS A. Plaque, left carotid artery, endarterectomy: ATHEROSCLEROSIS, SEVERE (OCCLUSIVE AND CALCIFIC). B. Lymph node, left cervical, excisional biopsy: MILD TO MODERATE, NONSPECIFIC REACTIVE CHANGE. NO ATYPIA. NO MALIGNANCY. GROSS DESCRIPTION A. Left carotid plaque. Received is yellow-cheatham plaque, measuring 3 x 1 x 0.9 cm. Cut sections reveal slightly calcified cut surface. Sections submitted for brief decal as A1. B. Left cervical lymph node. Received are two nodes, measuring 1.2 x 1 x 0.6 and 0. 6 x 0.5 x 0.3 cm. The smaller node is inked blue. They are sectioned and submitted together as B1. /tc/nr MICROSCOPIC DESCRIPTION A. Left carotid plaque. Ovoid, sclerotic, plaque nodule with focal dystrophic calcification. B. Left cervical lymph node. Benign lymph node with mild to moderate sinus histiocytosis and mild to moderate concurrent paracortical reactive changes. No atypical features. No malignancy. /pdb Signed SIGNATURE ON Kehinde Nino 12/28/18 1153 END OF REPORT BASIC METABOLIC [id number] 06:45:00 Test Item Value Reference Range Interpretation Comments SODIUM (test code = 140 MMOL/L 137-145 N NA) POTASSIUM (test code = 4.1 MMOL/L 3.5-5.1 N K) CHLORIDE (test code = 103 MMOL/L 98-107 N CL) CARBON DIOXIDE (test 30 MMOL/L 22-30 N code = CO2) GLUCOSE (test code = 108 MG/DL 74-106 H GLU) BLOOD UREA NITROGEN 12 MG/DL 9-20 N (test code = BUN) GLOMERULAR FILTRATION > 60 Report ing units: RATE (test code = GFR) ml/mi n/1.73 m2 (Modified MDRD Formula)Referen ce Range: > or = 6 0 ml/min/1.73 m2 CREATININE (test code 1.00 MG/DL 0.66-1.25 N = CREAT) CALCIUM (test code = 8.6 MG/DL 8.4-10.2 N CA) [id number] 06:45:00 Test Item Value Reference Range Interpretation Comments MAGNESIUM (test code = MAG) 1.8 MG/DL 1.6-2.3 N CBC W/AUTO [id number] 06:22:00 Test Item Value Reference Range Interpretation Comments WHITE BLOOD CELL (test code = 25.3 K/MM3 3.8-9.8 H WBC) RED BLOOD CELL (test code = 5.86 M/MM3 3.95-5.67 H RBC) HEMOGLOBIN (test code = HGB) 17.9 G/DL 12.4-16.7 H HEMATOCRIT (test code = HCT) 53.2 % 35.9-49.5 H MEAN CELL VOLUME (test code = 91 fL 81.7-96.1 N MCV) MEAN CELL HGB (test code = MCH) 30.5 pg 27.6-33.2 N MEAN CELL HGB CONCETRATION 33.6 % 32.9-35.5 N (test code = MCHC) RED CELL DISTRIBUTION WIDTH 12.6 % 12.1-15.2 N (test code = RDW) PLATELET COUNT (test code = 159 K/MM3 129-368 N PLT) MEAN PLATELET VOLUME (test code 10.0 fl 7.4-10.4 N = MPV) NEUTROPHIL % (test code = NT%) 88.6 % 43-75 H IMMATURE GRANULOCYTE % (test 0.4 % 0.0-2.0 N code = IG%) LYMPHOCYTE % (test code = LY%) 5.5 % 14-44 L MONOCYTE % (test code = MO%) 5.3 % 4-13 N EOSINOPHIL % (test code = EO%) 0.0 % 0-6 N BASOPHIL % (test code = BA%) 0.2 % 0-2 N NUCLEATED RBC % (test code = 0.0 % 0-1.0 N NRBC%) NEUTROPHIL # (test code = NT#) 22.42 K/mm3 2.0-7.6 H IMMATURE GRANULOCYTE # (test 0.11 x10 3/uL 0-0.03 H code = IG#) LYMPHOCYTE # (test code = LY#) 1.40 K/mm3 1.0-3.8 N MONOCYTE # (test code = MO#) 1.33 K/mm3 0.1-0.8 H EOSINOPHIL # (test code = EO#) 0.00 K/mm3 0.0-0.2 N BASOPHIL # (test code = BA#) 0.05 K/mm3 0.0-0.2 N NUCLEATED RBC # (test code = 0.00 K/mm3 0.0-0.1 N NRBC#) - XR CHEST [id number] 05:47:00 Patient Name: FRANCESCO NULL Unit No: [id number] EXAMS: CPT CODE: [id number] XR CHEST 1V 75533 HISTORY: Postop Location code: B2 FINDINGS: Frontal view of the chest demonstrates normal cardiomediastinal silhouette. The trachea is midline. The lungs are clear. There is no effusion or pneumothorax.The bones are intact. Right subclavian catheter in good position. IMPRESSION: No acute pulmonary process. at 0547 Reported and signed by: Ozzy Christensen M.D. CC: Dina Tinsley MD; Lala GARZA Technologist: Stacia Henry, RT(R) Transcrpt Date/Tm/Trnsp: 12/26/2018 (0547) [id number] Orig Print D/T: S: 12/26/2018 (0550) [facility] NAME: FRANCESCO NULL [address] PHYS: [place] [address] : 1945 AGE: 73 SEX: M LOC: Z.SI01 A PHONE #: [phone] EXAM DATE: 12/26/2018 STATUS: ADM IN FAX #: [phone] RADIOLOGY NO: PAGE 1 Signed Report ARTERIAL BLOOD [id number] 05:27:00 Test Item Value Reference Range Interpretation Comments ARTERIAL BLOOD GAS PH (test code 7.34 mmHg 7.35-7.45 L = PHA) ARTERIAL BLOOD GAS PCO2 (test 49.2 mmHg 35.0-45.0 H code = PCO2A) ARTERIAL BLOOD GAS PO2 (test code 84.7 mmol/L 80.0-100.0 N = PO2A) BICARBONATE TOTAL HCO3 (test code 25.9 mmol/L 20.0-26.0 N = HCO3) BASE EXCESS (test code = RABIA) -0.5 mmol/L -3.0-3.0 N ABG O2 SATURATION (test code = 95.7 % 95.0-100.0 N SATA) ABG DELIVERY (test code = RYAN) N/C ABG TEMPERATURE (test code = 37.0 C >37 TEMPA) ABG SITE (test code = SITEA) AL ALLENS TEST (test code = ALLENS) N CHECK FIO2 (test code = COHBGFFIO2) 40 % - XR CHEST [id number] 20:11:00 Patient Name: FRANCESCO NULL Unit No: [id number] EXAMS: CPT CODE: [id number] XR CHEST 1V 54819 Location of dictation: B2 Portable chest one view. HISTORY: post op COMMENT: Compared to earlier study the same day. Patient has undergone a left carotid endarterectomy. Surgical clips are seen in the left neck with a surgical drain. A right subclavian central line is now in place with the tip overlying the SVC. The heart is enlarged. There is mild pulmonary edema pattern. No new consolidation, pneumot horax or effusion is seen. IMPRESSION: 1. Status post left carotid endarterectomy. 2. Suspect mild CHF. at 2010 Reported and signed by: Ondina Catalan M.D. CC: Dina Tinsley MD; Lala GARZA Technologist: RT Jonh(R) Transc rpt Date/Tm/Trnsp: 12/25/2018 (2010) [email or web address] Orig Print D/T: S: 12/25/2018 (2013) [facility] NAME: FRANCESCO NULL [id number] PHYS: [place] [address] : 1945 AGE: 73 SEX: M LOC: Z.SI01 A PHONE #: [phone] EXAM DATE: 12/25/2018 STATUS: ADM IN FAX #: [phone] RADIOLOGY NO: PAGE 1 Signed ReportBASIC METABOLIC [id number] 20:08:00 Test Item Value Reference Range Interpretation Comments SODIUM (test code = 142 MMOL/L 137-145 N NA) POTASSIUM (test code = 4.3 MMOL/L 3.5-5.1 N K) CHLORIDE (test code = 107 MMOL/L 98-107 N CL) CARBON DIOXIDE (test 26 MMOL/L 22-30 N code = CO2) ANION GAP (test code = 13 MMOL/L 14-24 L GAP) GLUCOSE (test code = 110 MG/DL 74-106 H GLU) BLOOD UREA NITROGEN 12 MG/DL 9-20 N (test code = BUN) GLOMERULAR FILTRATION > 60 Report ing units: RATE (test code = GFR) ml/mi n/1.73 m2 (Modified MDRD Formula)Referen ce Range: > or = 6 0 ml/min/1.73 m2 CREATININE (test code 1.10 MG/DL 0.66-1.25 = CREAT) CALCIUM (test code = 8.8 MG/DL 8.4-10.2 N CA) [id number] 20:08:00 Test Item Value Reference Range Interpretation Comments MAGNESIUM (test code = MAG) 1.6 MG/DL 1.6-2.3 N CBC W/AUTO [id number] 19:52:00 Test Item Value Reference Range Interpretation Comments WHITE BLOOD CELL (test 26.4 K/MM3 3.8-9.8 H code = WBC) RED BLOOD CELL (test 5.98 M/MM3 3.95-5.67 H code = RBC) HEMOGLOBIN (test code 18.2 G/DL 12.4-16.7 HH CALLED TO MARINA Mccoy = HGB) & READBACK ON 12/25/18 AT 195 0 BY Filipe Gonzales HEMATOCRIT (test code 53.9 % 35.9-49.5 H = HCT) MEAN CELL VOLUME (test 90 fL 81.7-96.1 N code = MCV) MEAN CELL HGB (test 30.4 pg 27.6-33.2 N code = MCH) MEAN CELL HGB 33.8 % 32.9-35.5 N CONCETRATION (test code = MCHC) RED CELL DISTRIBUTION 12.9 % 12.1-15.2 N WIDTH (test code = RDW) PLATELET COUNT (test 180 K/MM3 129-368 N code = PLT) MEAN PLATELET VOLUME 9.2 fl 7.4-10.4 N (test code = MPV) NEUTROPHIL % (test 80.2 % 43-75 H code = NT%) IMMATURE GRANULOCYTE % 1.1 % 0.0-2.0 N (test code = IG%) LYMPHOCYTE % (test 11.2 % 14-44 L code = LY%) MONOCYTE % (test code 6.7 % 4-13 N = MO%) EOSINOPHIL % (test 0.5 % 0-6 N code = EO%) BASOPHIL % (test code 0.3 % 0-2 N = BA%) NUCLEATED RBC % (test 0.0 % 0-1.0 N code = NRBC%) NEUTROPHIL # (test 21.19 K/mm3 2.0-7.6 H code = NT#) IMMATURE GRANULOCYTE # 0.29 x10 3/uL 0-0.03 H (test code = IG#) LYMPHOCYTE # (test 2.95 K/mm3 1.0-3.8 N code = LY#) MONOCYTE # (test code 1.78 K/mm3 0.1-0.8 H = MO#) EOSINOPHIL # (test 0.12 K/mm3 0.0-0.2 N code = EO#) BASOPHIL # (test code 0.08 K/mm3 0.0-0.2 N = BA#) NUCLEATED RBC # (test 0.00 K/mm3 0.0-0.1 N code = NRBC#) HIV 12 AB [id number] 15:16:00 Test Item Value Reference Range Interpretation Comments AB HIV 1 2 NON REACTIVE NON-REAC NOTE: A NONREAC TIVE RESULT (test code = INDICATES THAT HIV-1 AND [id number]) HIV-2ANTIBODIES HAVE NOT BEEN FOUND IN T HIS PATIENT SPECIMEN. ANON- REACTIVE RESULT, HOWEVER , DOES NOT PRECLUDE PREVIO USEXPOSURE OR INFECTION WI TH HIV1. AG HIV1 P24 NON REACTIVE NONE REAC (test code = [id number]) BASIC METABOLIC [id number] 10:08:00 Test Item Value Reference Range Interpretation Comments SODIUM (test code = 147 MMOL/L 137-145 H NA) POTASSIUM (test code = 4.8 MMOL/L 3.5-5.1 N K) CHLORIDE (test code = 105 MMOL/L 98-107 N CL) CARBON DIOXIDE (test 31 MMOL/L 22-30 H code = CO2) GLUCOSE (test code = 100 MG/DL 74-106 N GLU) BLOOD UREA NITROGEN 12 MG/DL 9-20 N (test code = BUN) GLOMERULAR FILTRATION 54 Report ing units: RATE (test code = GFR) ml/mi n/1.73 m2 (Modified MDRD Formula)Referen ce Range: > or = 6 0 ml/min/1.73 m2 CREATININE (test code 1.30 MG/DL 0.66-1.25 H = CREAT) CALCIUM (test code = 9.9 MG/DL 8.4-10.2 N CA) CBC W/AUTO [id number] 10:01:00 Test Item Value Reference Range Interpretation Comments WHITE BLOOD CELL (test 13.0 K/MM3 3.8-9.8 H code = WBC) RED BLOOD CELL (test 6.53 M/MM3 3.95-5.67 H code = RBC) HEMOGLOBIN (test code 19.8 G/DL 12.4-16.7 HH CALLED TO PAT B & = HGB) READBACK ON 12/25/18 AT 095 5 BY John Smith HEMATOCRIT (test code 59.0 % 35.9-49.5 HH CALLED TO PAT B & = HCT) READBACK ON 12/25/18 AT 095 5 BY John Smith MEAN CELL VOLUME (test 90 fL 81.7-96.1 N code = MCV) MEAN CELL HGB (test 30.3 pg 27.6-33.2 N code = MCH) MEAN CELL HGB 33.6 % 32.9-35.5 N CONCETRATION (test code = MCHC) RED CELL DISTRIBUTION 13.2 % 12.1-15.2 N WIDTH (test code = RDW) PLATELET COUNT (test 178 K/MM3 129-368 N code = PLT) MEAN PLATELET VOLUME 9.3 fl 7.4-10.4 N (test code = MPV) NEUTROPHIL % (test 78.7 % 43-75 H code = NT%) IMMATURE GRANULOCYTE % 0.5 % 0.0-2.0 N (test code = IG%) LYMPHOCYTE % (test 14.1 % 14-44 N code = LY%) MONOCYTE % (test code 6.2 % 4-13 N = MO%) EOSINOPHIL % (test 0.3 % 0-6 N code = EO%) BASOPHIL % (test code 0.2 % 0-2 N = BA%) NUCLEATED RBC % (test 0.0 % 0-1.0 N code = NRBC%) NEUTROPHIL # (test 10.23 K/mm3 2.0-7.6 H code = NT#) IMMATURE GRANULOCYTE # 0.06 x10 3/uL 0-0.03 H (test code = IG#) LYMPHOCYTE # (test 1.83 K/mm3 1.0-3.8 N code = LY#) MONOCYTE # (test code 0.81 K/mm3 0.1-0.8 H = MO#) EOSINOPHIL # (test 0.04 K/mm3 0.0-0.2 N code = EO#) BASOPHIL # (test code 0.03 K/mm3 0.0-0.2 N = BA#) NUCLEATED RBC # (test 0.00 K/mm3 0.0-0.1 N code = NRBC#) - XR CHEST [id number] 09:42:00 Patient Name: FRANCESCO NULL Unit No: [id number] EXAMS: CPT CODE: [id number] XR CHEST 1V 29890 REASON FOR EXAM: Cardiorespiratory clearance for surgery. COMPARISON: None. Chest, portable single frontal view. The lungs are well-inflated and clear. Heart size is normal. No effusion or pneumothorax can be seen. Osseous structures appear to be intact. IMPRESSION: No acute cardiopulmonary disease. Location: [facility] at 0942 Reported and signed by: Jonny Duarte MD CC: Dina Tinsley MD Technologist: Swetha Murillo, RT(R) Transcrpt Date/Tm/Trnsp: 12/25/2018 (0942) Connor Orig Print D/T: S: 12/25/2018 (0946) [facility] NAME: FRANCESCO NULL [address] [address] PHYS: [place] [address] : 1945 AGE: 73 SEX: M LOC: Z.SRG PHONE #: [phone] EXAM DATE: 12/25/2018 STATUS: [place] [facility] [place] #: [phone] RADIOLOGY NO: PAGE 1 Signed ReportBASIC METABOLIC [id number] 06:02:00 Test Item Value Reference Range Interpretation Comments SODIUM (test code = 143 MMOL/L 137-145 N NA) POTASSIUM (test code = 4.2 MMOL/L 3.5-5.1 N K) CHLORIDE (test code = 108 MMOL/L 98-107 H CL) CARBON DIOXIDE (test 25 MMOL/L 22-30 N code = CO2) GLUCOSE (test code = 98 MG/DL 74-106 N GLU) BLOOD UREA NITROGEN 12 MG/DL 9-20 N (test code = BUN) GLOMERULAR FILTRATION > 60 Report ing units: RATE (test code = GFR) ml/mi n/1.73 m2 (Modified MDRD Formula)Referen ce Range: > or = 6 0 ml/min/1.73 m2 CREATININE (test code 1.00 MG/DL 0.66-1.25 N = CREAT) CALCIUM (test code = 9.0 MG/DL 8.4-10.2 N CA) Is this a LINE draw? NLIPID PROFILE (CORONARY RISK)2018-12-19 06:02:00 Test Item Value Reference Range Interpretation Comments TRIGLYCERIDES (test 57 MG/DL TRIGLYCE RIDES code = TRIG) REFERENCE RANGE:Normal: < 150 mg/dLBorderline High: 150-199 mg/dLHi gh: 200-499 mg/dLVe ry High: >=500 mg/ dL CHOLESTEROL (test code 98 MG/DL <200 = CHOL) HDL CHOLESTEROL (test 31 MG/DL 40-59 L code = HDL) LIPOPROTEIN LDL (test 64 MG/DL 0-99 N OPTIM AL.........<100 code = LDL) mg/dLNEAR OPTIMAL/ABOVE OPTIMAL........ .100-12 9 mg/dL BORDERL INE HIGH.........13 0-159 mg/dL HIGH.........16 0-189 mg/dL VERY HIGH.........>/ = 190 mg/dL Is this a LINE draw? [id number] 06:02:00 Test Item Value Reference Range Interpretation Comments MAGNESIUM (test code = MAG) 2.1 MG/DL 1.6-2.3 N Is this a LINE draw? NPROTHROMBIN [id number] 05:54:00 Test Item Value Reference Range Interpretation Comments PROTHROMBIN TIME 11.0 SECONDS 9.6-11.6 N PATIENT (test code = PTP) INTERNATIONAL NORMAL 1.0 0.8-1.1 N The INR is to be RATIO (test code = used only for INR) monitoring oral anticoagulantth erap y. INDICATION I NR VALUE ---- ---- ---- -------1. Prophylaxis, de ep venous thrombos is, including high risk surgery. 2.0 - 3.0 2. Prophylaxis, deep venous thrombosis, hip surgery, treatm ent for deep venous thrombosis or pulmonary prevention of systemic emboli sm in patients wit h valvular heart disease, atrial fibrillation, tissue heart va lve, or acute myocar dial infarction. 2.0 - 3.0 3. Weather Strip Installer al prosthesis hear t valves, recurre nt systemic emboli sm. 3.0 - 4.5 PTT [id number] 05:54:00 Test Item Value Reference Range Interpretation Comments PTT ACTIVATED (test code = APTT) 28.5 SECONDS 22.0-33.0 N BASIC METABOLIC [id number] 05:52:00 Test Item Value Reference Range Interpretation Comments SODIUM (test code = 143 MMOL/L 137-145 N NA) POTASSIUM (test code = 4.2 MMOL/L 3.5-5.1 N K) CHLORIDE (test code = 108 MMOL/L 98-107 H CL) CARBON DIOXIDE (test 25 MMOL/L 22-30 N code = CO2) GLUCOSE (test code = 98 MG/DL 74-106 N GLU) BLOOD UREA NITROGEN 12 MG/DL 9-20 N (test code = BUN) GLOMERULAR FILTRATION > 60 Report ing units: RATE (test code = GFR) ml/mi n/1.73 m2 (Modified MDRD Formula)Referen ce Range: > or = 6 0 ml/min/1.73 m2 CREATININE (test code 1.00 MG/DL 0.66-1.25 N = CREAT) CALCIUM (test code = 9.0 MG/DL 8.4-10.2 N CA) Is this a LINE draw? NLIPID PROFILE (CORONARY RISK)2018-12-19 05:52:00 Test Item Value Reference Range Interpretation Comments TRIGLYCERIDES (test 57 MG/DL TRIGLYCE RIDES code = TRIG) REFERENCE RANGE:Normal: < 150 mg/dLBorderline High: 150-199 mg/dLHi gh: 200-499 mg/dLVe ry High: >=500 mg/ dL CHOLESTEROL (test code 98 MG/DL <200 = CHOL) HDL CHOLESTEROL (test 31 MG/DL 40-59 L code = HDL) LIPOPROTEIN LDL (test MG/DL 0-99 code = LDL) Is this a LINE draw? [id number] 05:52:00 Test Item Value Reference Range Interpretation Comments MAGNESIUM (test code = MAG) 2.1 MG/DL 1.6-2.3 N Is this a LINE draw? NCBC W/AUTO [id number] 05:45:00 Test Item Value Reference Range Interpretation Comments WHITE BLOOD CELL (test 12.8 K/MM3 3.8-9.8 H code = WBC) RED BLOOD CELL (test 6.47 M/MM3 3.95-5.67 H code = RBC) HEMOGLOBIN (test code 19.7 G/DL 12.4-16.7 HH CALLED TO Brianne Thomas = HGB) CCl & READBACK ON 12/19/18 AT 054 2 BY Mary Ann Bustos HEMATOCRIT (test code 57.2 % 35.9-49.5 HH CALLED TO Brianne Thomas = HCT) CCL & READBACK ON 12/19/18 AT 054 2 BY Mary Ann Bustos MEAN CELL VOLUME (test 88 fL 81.7-96.1 N code = MCV) MEAN CELL HGB (test 30.4 pg 27.6-33.2 N code = MCH) MEAN CELL HGB 34.4 % 32.9-35.5 N CONCETRATION (test code = MCHC) RED CELL DISTRIBUTION 12.9 % 12.1-15.2 N WIDTH (test code = RDW) PLATELET COUNT (test 163 K/MM3 129-368 N code = PLT) MEAN PLATELET VOLUME 9.1 fl 7.4-10.4 N (test code = MPV) NEUTROPHIL % (test 76.4 % 43-75 H code = NT%) IMMATURE GRANULOCYTE % 0.5 % 0.0-2.0 N (test code = IG%) LYMPHOCYTE % (test 15.9 % 14-44 N code = LY%) MONOCYTE % (test code 6.4 % 4-13 N = MO%) EOSINOPHIL % (test 0.6 % 0-6 N code = EO%) BASOPHIL % (test code 0.2 % 0-2 N = BA%) NUCLEATED RBC % (test 0.0 % 0-1.0 N code = NRBC%) NEUTROPHIL # (test 9.77 K/mm3 2.0-7.6 H code = NT#) IMMATURE GRANULOCYTE # 0.07 x10 3/uL 0-0.03 H (test code = IG#) LYMPHOCYTE # (test 2.03 K/mm3 1.0-3.8 N code = LY#) MONOCYTE # (test code 0.82 K/mm3 0.1-0.8 H = MO#) EOSINOPHIL # (test 0.08 K/mm3 0.0-0.2 N code = EO#) BASOPHIL # (test code 0.02 K/mm3 0.0-0.2 N = BA#) NUCLEATED RBC # (test 0.00 K/mm3 0.0-0.1 N code = NRBC#) Is this a LINE draw? NRadiologic examination, abdomen 1 [id number] 12:07:28 CLINICAL INDICATION: N20.1 Calculus of ureterFINDINGS:COMPARISON: 02/09/2018Bowel gas pattern is unremarkable. No dilated loops of small bowel, or bony lesions. No suspicious air fluid levels. There isno ileus or obstruction.A left ureteral stent is in position. This is new since the prior study. Theleft ureteral calculus previously identified is no longer seen in the paraspinous position. The samecalculus may be located in the region of the left UV junction along the distal ureteral stent. The 5mm left intra renal mid pole calculus is no longer seen.IMPRESSION:1. Nonspecific bowel gas pattern.2. Numerous surgical clips are seen in the pelvis.3. Placement of left ureteral stent since prior study of 02/09/2018.4. Possible calculus seen at the L3-4 level is no longer identified. A similar shaped calculus overlies the left lateral sacrum near the region of the left UV junction. Notes Date/Time Note Provider Source 2018-12-30 23:54:00-00:00 [id number] [address] PATIENT NAME: FRANCESCO NULL ADMIT DATE: ACCOUNT NO: [id number] ROOM NO: [facility] AGE: 73 REPORT TYPE: OPERATIVE REPORT SEX: M ADMITTING PHYSICIAN:Jonny Berg MD ATTENDING PHYSICIAN:Jonny Berg MD OPERATION DATE: 12/25/2018 CARDIAC SURGERY SERVICE PREOPERATIVE DIAGNOSIS: Left internal carotid ar judith stenosis. POSTOPERATIVE DIAGNOSIS: Left internal carotid a rtery stenosis. PROCEDURE: Right CVP inserti on, left carotid endarterectomy, and reconstruction of the left internal carotid artery with a saphenous vein interposition graft. SURGEON: Jonny Berg MD OVERNIGHT HOUSEPERSON: Lala Acuña PA-C ANESTHESIA: General. COMPLICATIONS: None. DISPOSITION: The patient to surgical ICU in stab le condition. DESCRIPTION OF PROCEDURE: On 12/25/2018, the pat ient was brought to the operating room, placed on the operating table in supine position, prepped and draped in the usual fashion. Following introduct ion of satisfactory general anesthesia, placement of monitoring lines, Solis catheter, hips, shoulders, elbows padded in usual fashi on. Right subclavian CVP was placed using Seldinger percutaneous guidewire technique. The patient wa s prepped and draped in usual fashion. Neck extended, turned right to 45-degre e angle. Incision was then made along the anterior border of sternocleidoma stoid muscle. Carotid sheath and vessels placed around the carotid arterial b ranches. We then heparinized the patient. Clamps were placed. The art eriotomy of the common carotid through the internal carotid artery and the plaque actua lly extends high up in the internal carotid artery, we dissected out. We th en irrigated with heparin saline solution and a shunt was placed. The enda rterectomy was performed, plaque feathered out up in t he internal carotid artery. Internal carotid artery was actually very diseased through wall thicknes s and quite friable. We saw that a typical patch arterioplasty was not going to work with this patient as the aorta was just . We then decided t o excise the internal carotid artery from the bifurcation of this level and th en we harvested to do a saphenous vein interposition graft. We then prep ped out the right leg and immediately harvested the ri t lower leg greater saphenous vein. This was then prepared on the back table and then we brought u p to the field. We did the PATIENT NAME: FRANCESCO NULL ACCOUNT #: [id number] distal anastomosis end-to-en d after beveling the vein a little bit using running 6-0 Prolene suture. We had a nice anastomosis, which was hemostatic and flushed with heparin saline solution. We then brought th e vein down and then cut this to proper length and width and then prepared the proximal portion of the anastomosis so that we can then use the vein as an onlay to completely reconstruct the distal portion of the common car otid artery into the bulb and the takeoff of the external carotid artery. This was done with a running 5-0 Prolene suture. The vein fit perfectly and clamp s were released. Before closing we did air purging maneuvers and then we released all clamps. We had excellent flow through the internal carotid precious ry with an excellent Doppler pulsation and we irrigated with antibiotic salin e solution. Protamine given, hemostasis achieved. Wounds were irrigated with antibiotic saline solution. A Gaetano-Mcdermott drain was placed. Wounds were clos ed in layers in the usual fashion, dressings applied. The patient to the surgical ICU in stable condition and was neurologically intact. Dictated By: Jonny Berg MD WT: OP:KARY/LUKE/WOODROW Conf#: [id number]/DID#: [id number] cc: Dina Tinsley MD Authenticated by Jonny Berg MD On 019 11:43:18 AM at 1143 PATIENT NAME: FRANCESCO NULL ACCOUNT #: [id number] 2018-12-28 17:09:00-00:00 [facility] ([facility]) Hospitalist Progress Note REPORT#:[id number] REPORT STATUS: Signed DATE:12/28/18 TIME: 1708 PATIENT: FRANCESCO NULL UNIT #: [id number] [facility] AGE: 73 SEX: M ATTEND: Edi Berg MD ADM AUTHOR: Stefany Buckley MD * ALL edits or amendments must be made on the el [employer]/computer document * Subjective Chief Complaint: sitting in the chair Review of Systems Constitutional: Denies: chills, fever. Respiratory: Denies: productive cough (sputum), SOB. Cardiovascular: Denies: chest pain, [place] (dyspnea on exertion). GI: Denies: abdominal pain, nausea, vomiting. Musculoskeletal: Denies: extremity pain, extremity swelling. Neuro: Denies: headache, lightheaded, numbness. Objective General VS/I O: Vital Signs: Date Time Temp Pulse Resp B/P B/P Pulse O2 O2 F low FiO2 Mean Ox Delivery Rate 12/28 1235 97.9 82 14 148/76 99.6 95 Room air 12/28 1201 98 Nasal 21 cannula 12/28 0904 98.1 82 14 118/71 86.8 92 Room air 12/28 0403 97.9 75 18 121/75 90.5 91 Room air 12/27 2313 97.7 90 18 136/77 97.0 92 Room air 12/27 2025 98.2 90 18 152/85 107.2 96 Room air 12/27 2000 Nasal 2.279724 cannula / 1835 94 Room air 12/27 1803 80 13 138/70 97 95 / 1733 80 12 133/67 93 95 24 hour I O ending at 0700: 12/28 0700 12/27 1900 Intake Total 700 Output Total 500 Balance 700 -500 Intake, Oral 700 Number 1 Bowel Movements Number Voids 6 1 Output, Urine 500 Medications: Active Meds + DC'd Last 24 Hrs Famotidine 20 MG Q12HR PO (DCD) Hydralazine HCl 10 MG Q6H PRN PRN IV (DCD) Nifedipine 30 MG ONCE ONE PO (DC) Nifedipine 30 MG DAILY PO (DCD) Aspirin 81 MG DAILY PO (DCD) Atorvastatin Calcium 10 MG DAILY PO (DCD) Clopidogrel Bisulfate 75 MG DAILY PO (DCD) Losartan Potassium 100 MG DAILY PO (DCD) Metoprolol Succinate 50 MG DAILY PO (DCD) Mupirocin 1 APPLIC BID NASAL (DC) Hydrocodone Bitart/Acetaminophen 1 TAB Q4H PRN P RN PO (DCD) Hydrocodone Bitart/Acetaminophen 2 TAB Q4H PRN P RN PO (DCD) Acetaminophen 650 MG Q4H PRN PRN PO (DCD) Benzocaine/Menthol 1 EACH Q2H PRN PRN MM (DCD) Bisacodyl 10 MG ASDIR PRN RECTAL (DCD) Ondansetron HCl 4 MG Q8H PRN PRN IV (DCD) Phenol 5 SPRAY Q2H PRN PRN MM (DCD) Acetaminophen 650 MG Q4H PRN PRN PO (DC) Zolpidem Tartrate 5 MG BEDTIME PRN PRN PO (DCD) Physical Exam General appearance: obese, alert, awake, oriente d ENT: moist mucosal membranes, left neck dressing intact Neck: dressing on left side of the neck Cardiovascular: normal heart sounds, regular rat e rhythm Respiratory: aerating well, clear to auscultatio n Abdomen: non-tender, normal bowel sounds Extremities: moves all, no edema Neuro/[employer]: alert, oriented X 3 Results Findings/Data: Laboratory Tests 12/28 1310 Chemistry Sodium (137 - 145 MMOL/L) 141 Potassium (3.5 - 5.1 MMOL/L) 3.7 Chloride (98 - 107 MMOL/L) 98 Carbon Dioxide (22 - 30 MMOL/L) 35 H BUN (9 - 20 MG/DL) 12 Creatinine (0.66 - 1.25 MG/DL) 1.20 Glomerular Filtr Rate 60 Glucose (74 - 106 MG/DL) 92 Calcium (8.4 - 10.2 MG/DL) 9.5 Laboratory Tests 12/28 1310 Hematology WBC (3.8 - 9.8 K/MM3) 16.4 H RBC (3.95 - 5.67 M/MM3) 5.88 H Hgb (12.4 - 16.7 G/DL) 17.9 H Hct (35.9 - 49.5 %) 53.8 H MCV (81.7 - 96.1 fL) 92 MCH (27.6 - 33.2 pg) 30.4 MCHC (32.9 - 35.5 %) 33.3 RDW (12.1 - 15.2 %) 12.5 Plt Count (129 - 368 K/MM3) 208 MPV (7.4 - 10.4 fl) 9.4 Neut % (Auto) (43 - 75 %) 78.0 H Lymph % (Auto) (14 - 44 %) 13.2 L [place] % (Auto) (4 - 13 %) 7.4 Eos % (Auto) (0 - 6 %) 0.7 Baso % (Auto) (0 - 2 %) 0.2 Neut # (Auto) (2.0 - 7.6 K/mm3) 12.82 H Lymph # (Auto) (1.0 - 3.8 K/mm3) 2.17 [place] # (Auto) (0.1 - 0.8 K/mm3) 1.21 H Eos # (Auto) (0.0 - 0.2 K/mm3) 0.11 Baso # (Auto) (0.0 - 0.2 K/mm3) 0.03 Immature Gran % (0.0 - 2.0 %) 0.5 Nucleated RBC % (0 - 1.0 %) 0.0 Nucleated RBCs # (Man) (0.0 - 0.1 K/mm3) 0.00 Treatment Prophylaxis Treatment Prophylaxis [facility] documentation: The data below has been impo rted from nursing documentation. Any exceptions have been noted below under Provider comments. _ Nursing Documentation Date will inserted: 12/25/18 Date [facility] discontinued: 12/26/18 _ Provider comments: [] Diagnosis, Assessment Plan Hospital course to date: LICA stenosis s/p Left carotid endarterectomy with rec onstruction of the carotid artery with saphenous vein interposition graft Polycythemia- resolving Acute renal insufficiency- resolved Hx of HTN HLD Plan: pt on cardene drip with close monitoring of the BP monitor CBC prn pain mx postop orders as per dr Berg 12/26- wbc and HH improving. - pain is managed. - off cardene drip. BP controlled 12/27- will continue with current mx. - ambulatory. - BP high. meds adjusted 12/28- plan dc today Quality Medications Current medication review: I attest that the foregoing medication list in t he medical record is true, accurate, and complete to the best of my knowled ge. Electronically Signed by Stefany Buckley MD on at 1713 RPT #:[id number] END OF REPORT 2018-12-28 14:37:00-00:00 [facility] ([facility]) Cardiovascular Surgery Prog REPORT#:[id number] REPORT STATUS: Signed DATE:12/28/18 TIME: 1437 PATIENT: FRANCESCO NULL UNIT #: [id number] ROOM/BED: [address] : [birth year] AGE: 73 SEX: M ATTEND: Edi Berg MD ADM AUTHOR: Maryana Silva NP * ALL edits or amendments must be made on the [employer]/computer document * General Post-op: day 3 Status post: Left CEA Subjective Patient reports: No: complaints. Comments: Seen at bedside, sitting on the chair Denies cp or sob or neck pain Tongue is midline without deviation, no facial d edilberto Review of Systems Constitutional: Denies: chills, fatigue, fever, generalized weak ness. Respiratory: Denies: TOLEDO (dyspnea on exertion), SOB. Cardiovascular: Denies: chest pain, TOLEDO (dyspnea on exer tion), edema, orthopnea, palpitations. Objective Physical Exam VS/I O: Last Documented: Result Date Time Pulse Ox 95 12/28 1235 B/P 148/76 12/28 1235 B/P Mean 99.6 12/28 1235 O2 Delivery Room air 12/28 1235 Temp 97.9 12/28 1235 Pulse 82 12/28 1235 Resp 14 12/28 1235 FiO2 21 12/28 1201 O2 Flow Rate 2.099378 12/28 1999 24 hour I O ending at 0700: 12/28 0700 12/27 1900 Intake Total 700 Output Total 500 Balance 700 -500 Intake, Oral 700 Number 1 Bowel Movements Number Voids 6 1 Output, Urine 500 Medications: Active Meds + DC'd Last 24 Hrs Famotidine 20 MG Q12HR PO Hydralazine HCl 10 MG Q6H PRN PRN IV Nifedipine 30 MG ONCE ONE PO (DC) Nifedipine 30 MG DAILY PO Aspirin 81 MG DAILY PO Atorvastatin Calcium 10 MG DAILY PO Clopidogrel Bisulfate 75 MG DAILY PO Losartan Potassium 100 MG DAILY PO Metoprolol Succinate 50 MG DAILY PO Mupirocin 1 APPLIC BID NASAL (DC) Hydrocodone Bitart/Acetaminophen 1 TAB Q4H PRN P RN PO Hydrocodone Bitart/Acetaminophen 2 TAB Q4H PRN P RN PO Meperidine HCl 25 MG Q4H PRN PRN IM (DC) Acetaminophen 650 MG Q4H PRN PRN PO Benzocaine/Menthol 1 EACH Q2H PRN PRN MM (CKD) Bisacodyl 10 MG ASDIR PRN RECTAL Calcium Gluconate 1,000 MG ASDIR PRN IV (DC) Sodium Chloride 100 ML Nicardipine HCl 25 MG ASDIR PRN IV (DC) Sodium Chloride 250 ML Nifedipine 10 MG Q4H PRN PRN SL (DC) Ondansetron HCl 4 MG Q8H PRN PRN IV Phenol 5 SPRAY Q2H PRN PRN MM Potassium Chloride 10 MEQ ASDIR PRN PO (DC) Nicardipine HCl 25 MG ASDIR IV (DC) Sodium Chloride 250 ML Nifedipine 10 MG Q4H PRN PRN SL (DC) Sodium Nitroprusside 250 ML ASDIR IV (DC) Acetaminophen 650 MG Q4H PRN PRN PO (DC) Magnesium Hydroxide 30 ML DAILY PRN PRN PO (DC) Zolpidem Tartrate 5 MG BEDTIME PRN PRN PO General appearance: alert, awake, oriented, no a cute distress Wound/incision: Location: left neck Site condition: drainage (small serosan left n da), dressing clean dry, dressing intact, no drainage Neck: tenderness (left neck), no masses or swell ing Cardiovascular: BP/pulses equal bilat., normal h eart sounds, regular rate rhythm Respiratory: aerating well, clear to auscultatio n, symmetric expansion, no distress Abdomen: soft, non-tender, normal bowel sounds Extremities: dry, moves all, no edema, Dressing RLE D/C/I Neuro/BLENDER LABORER: alert, oriented X 3, Tongue i s midline without deviation, no facial droop Results Findings/Data: Laboratory Tests 12/28 1310 Chemistry Sodium (137 - 145 MMOL/L) 141 Potassium (3.5 - 5.1 MMOL/L) 3.7 Chloride (98 - 107 MMOL/L) 98 Carbon Dioxide (22 - 30 MMOL/L) 35 H BUN (9 - 20 MG/DL) 12 Creatinine (0.66 - 1.25 MG/DL) 1.20 Glomerular Filtr Rate 60 Glucose (74 - 106 MG/DL) 92 Calcium (8.4 - 10.2 MG/DL) 9.5 Laboratory Tests 12/28 1310 Hematology WBC (3.8 - 9.8 K/MM3) 16.4 H RBC (3.95 - 5.67 M/MM3) 5.88 H Hgb (12.4 - 16.7 G/DL) 17.9 H Hct (35.9 - 49.5 %) 53.8 H MCV (81.7 - 96.1 fL) 92 MCH (27.6 - 33.2 pg) 30.4 MCHC (32.9 - 35.5 %) 33.3 RDW (12.1 - 15.2 %) 12.5 Plt Count (129 - 368 K/MM3) 208 MPV (7.4 - 10.4 fl) 9.4 Neut % (Auto) (43 - 75 %) 78.0 H Lymph % (Auto) (14 - 44 %) 13.2 L [place] % (Auto) (4 - 13 %) 7.4 Eos % (Auto) (0 - 6 %) 0.7 Baso % (Auto) (0 - 2 %) 0.2 Neut # (Auto) (2.0 - 7.6 K/mm3) 12.82 H Lymph # (Auto) (1.0 - 3.8 K/mm3) 2.17 [place] # (Auto) (0.1 - 0.8 K/mm3) 1.21 H Eos # (Auto) (0.0 - 0.2 K/mm3) 0.11 Baso # (Auto) (0.0 - 0.2 K/mm3) 0.03 Immature Gran % (0.0 - 2.0 %) 0.5 Nucleated RBC % (0 - 1.0 %) 0.0 Nucleated RBCs # (Man) (0.0 - 0.1 K/mm3) 0.00 Diagnosis, Assessment Plan Free Text A P: This is a 73 Y/M with Carotid stenosis s/p left CEA-POD# 3-tongue is midline without de viation, no facial droop. Minimal serosanguinous drainage left neck, mild swelling. On plavix/aspirin Leukocytosis-trending down, currently 16.4 from 25.3 2 days ago. No fever, VSS. Seen by Dr. Berg today prior to d/c Patient wants to be d/c home D/c CVC D/W Dr. Berg Will d/c home today. F/U with Dr. Berg in 1-2 weeks F/U with Dr. Tinsley in 1-2 weeks. Orders: Procedure Date/time Status Central Line - Discontinue 12/28 1445 Active Discharge Order with Parameter 12/28 1430 Activ e CBC W/AUTO DIFF 12/28 1222 Complete BASIC METABOLIC PANEL 12/28 1222 Complete Plan discussed with: patient, son (at be dside), collaborating MD (Dr. Berg) at 2143 RPT #:[id number] END OF REPORT 2018-12-28 14:37:00-00:00 [facility] ([facility]) Cardiovascular Surgery Prog REPORT#:[id number] REPORT STATUS: Signed DATE:12/28/18 TIME: 1437 PATIENT: FRANCESCO NULL UNIT #: [id number] [facility] AGE: 73 SEX: M ATTEND: Edi Berg MD ADM AUTHOR: Maryana Silva NP * ALL edits or amendments must be made on the [employer]/computer document * General Post-op: day 3 Status post: Left CEA Subjective Patient reports: No: complaints. Comments: Seen at bedside, sitting on the chair Denies cp or sob or neck pain Tongue is midline without deviation, no facial d edilberto Review of Systems Constitutional: Denies: chills, fatigue, fever, generalized weak ness. Respiratory: Denies: TOLEDO (dyspnea on exertion), SOB. Cardiovascular: Denies: chest pain, TOLEDO (dyspnea on exer tion), edema, orthopnea, palpitations. Objective Physical Exam VS/I O: Last Documented: Result Date Time Pulse Ox 95 12/28 1235 B/P 148/76 12/28 1235 B/P Mean 99.6 12/28 1235 O2 Delivery Room air 12/28 1235 Temp 97.9 12/28 1235 Pulse 82 12/28 1235 Resp 14 12/28 1235 FiO2 21 12/28 1201 O2 Flow Rate 2.844358 12/28 1999 24 hour I O ending at 0700: 12/28 0700 12/27 1900 Intake Total 700 Output Total 500 Balance 700 -500 Intake, Oral 700 Number 1 Bowel Movements Number Voids 6 1 Output, Urine 500 Medications: Active Meds + DC'd Last 24 Hrs Famotidine 20 MG Q12HR PO Hydralazine HCl 10 MG Q6H PRN PRN IV Nifedipine 30 MG ONCE ONE PO (DC) Nifedipine 30 MG DAILY PO Aspirin 81 MG DAILY PO Atorvastatin Calcium 10 MG DAILY PO Clopidogrel Bisulfate 75 MG DAILY PO Losartan Potassium 100 MG DAILY PO Metoprolol Succinate 50 MG DAILY PO Mupirocin 1 APPLIC BID NASAL (DC) Hydrocodone Bitart/Acetaminophen 1 TAB Q4H PRN P RN PO Hydrocodone Bitart/Acetaminophen 2 TAB Q4H PRN P RN PO Meperidine HCl 25 MG Q4H PRN PRN IM (DC) Acetaminophen 650 MG Q4H PRN PRN PO Benzocaine/Menthol 1 EACH Q2H PRN PRN MM (CKD) Bisacodyl 10 MG ASDIR PRN RECTAL Calcium Gluconate 1,000 MG ASDIR PRN IV (DC) Sodium Chloride 100 ML Nicardipine HCl 25 MG ASDIR PRN IV (DC) Sodium Chloride 250 ML Nifedipine 10 MG Q4H PRN PRN SL (DC) Ondansetron HCl 4 MG Q8H PRN PRN IV Phenol 5 SPRAY Q2H PRN PRN MM Potassium Chloride 10 MEQ ASDIR PRN PO (DC) Nicardipine HCl 25 MG ASDIR IV (DC) Sodium Chloride 250 ML Nifedipine 10 MG Q4H PRN PRN SL (DC) Sodium Nitroprusside 250 ML ASDIR IV (DC) Acetaminophen 650 MG Q4H PRN PRN PO (DC) Magnesium Hydroxide 30 ML DAILY PRN PRN PO (DC) Zolpidem Tartrate 5 MG BEDTIME PRN PRN PO General appearance: alert, awake, oriented, no a cute distress Wound/incision: Location: left neck Site condition: drainage (small serosan left ne ck), dressing clean dry, dressing intact, no drainage Neck: tenderness (left neck), no masses or swell ing Cardiovascular: BP/pulses equal bilat., normal h eart sounds, regular rate rhythm Respiratory: aerating well, clear to auscultatio n, symmetric expansion, no distress Abdomen: soft, non-tender, normal bowel sounds Extremities: dry, moves all, no edema, Dressing RLE D/C/I Neuro/BLENDER LABORER: alert, oriented X 3, Tongue i s midline without deviation, no facial droop Results Findings/Data: Laboratory Tests 12/28 1310 Chemistry Sodium (137 - 145 MMOL/L) 141 Potassium (3.5 - 5.1 MMOL/L) 3.7 Chloride (98 - 107 MMOL/L) 98 Carbon Dioxide (22 - 30 MMOL/L) 35 H BUN (9 - 20 MG/DL) 12 Creatinine (0.66 - 1.25 MG/DL) 1.20 Glomerular Filtr Rate 60 Glucose (74 - 106 MG/DL) 92 Calcium (8.4 - 10.2 MG/DL) 9.5 Laboratory Tests 12/28 1310 Hematology WBC (3.8 - 9.8 K/MM3) 16.4 H RBC (3.95 - 5.67 M/MM3) 5.88 H Hgb (12.4 - 16.7 G/DL) 17.9 H Hct (35.9 - 49.5 %) 53.8 H MCV (81.7 - 96.1 fL) 92 MCH (27.6 - 33.2 pg) 30.4 MCHC (32.9 - 35.5 %) 33.3 RDW (12.1 - 15.2 %) 12.5 Plt Count (129 - 368 K/MM3) 208 MPV (7.4 - 10.4 fl) 9.4 Neut % (Auto) (43 - 75 %) 78.0 H Lymph % (Auto) (14 - 44 %) 13.2 L [place] % (Auto) (4 - 13 %) 7.4 Eos % (Auto) (0 - 6 %) 0.7 Baso % (Auto) (0 - 2 %) 0.2 Neut # (Auto) (2.0 - 7.6 K/mm3) 12.82 H Lymph # (Auto) (1.0 - 3.8 K/mm3) 2.17 [place] # (Auto) (0.1 - 0.8 K/mm3) 1.21 H Eos # (Auto) (0.0 - 0.2 K/mm3) 0.11 Baso # (Auto) (0.0 - 0.2 K/mm3) 0.03 Immature Gran % (0.0 - 2.0 %) 0.5 Nucleated RBC % (0 - 1.0 %) 0.0 Nucleated RBCs # (Man) (0.0 - 0.1 K/mm3) 0.00 Diagnosis, Assessment Plan Free Text A P: This is a 73 Y/M with Carotid stenosis s/p left CEA-POD# 3-tongue is midline without de viation, no facial droop. Minimal serosanguinous drainage left neck, mild swelling. On plavix/aspirin Leukocytosis-trending down, currently 16.4 from 25.3 2 days ago. No fever, VSS. Seen by Dr. Berg today prior to d/c Patient wants to be d/c home D/c CVC D/W Dr. Berg Will d/c home today. F/U with Dr. Berg in 1-2 weeks F/U with Dr. Tinsley in 1-2 weeks. Orders: Procedure Date/time Status Central Line - Discontinue 12/28 1445 Active Discharge Order with Parameter 12/28 1430 Activ e CBC W/AUTO DIFF 12/28 1222 Complete BASIC METABOLIC PANEL 12/28 1222 Complete Plan discussed with: patient, son (at be dside), collaborating MD (Dr. Berg) at 1511 at 0014 RPT #:[id number] END OF REPORT 2018-12-28 12:13:00-00:00 [id number] [place] [address] PATIENT NAME: FRANCESCO NULL ADMIT DATE: 06/05 ACCOUNT NO: [id number] ROOM NO: Z.364 AGE: 73 REPORT TYPE: DISCHARGE SUMMARY REPORT SEX: M ADMITTING PHYSICIAN:Jonny Berg MD ATTENDING PHYSICIAN:Jonny Berg MD ADMISSION DATE: 12/25/2018 DISCHARGE DATE: 12/28/2018 01:00:00 The patient is seen at bedside. The patient curr ently is stable. The patient is admitted to the hospital on 12/25/2018 with high-grade left internal carotid artery stenosis, hypertension, hyperlipidemia, a nd history of PSVT and supraventricular tachycardia and also th oracic aortic aneurysm of 3.85 cm. The patient was taken to the operating room on 12/25 for left carotid endarterectomy for high-grade stenosis g reater than 90%. He had a left carotid endarterectomy, had reconstruction of th e left internal carotid artery using a saphenous vein interposition graft with vein peter ng taken from the right lower greater saphenous vein. The patient was very sta ble in the ICU postop, intact neurologically. The patient did require Cardene for the first 2 days postop in the ICU and was weaned off Cardene yesterday and transferred to the telemetry unit. The patient currently is stable on the tel emetry unit now. He has been given appropriate discharge instructions. We will see him back in the office in 1 week. The patient will be discharged today. Dictated By: Jonny Berg MD WT: DS:KARY/LUKE/WOODROW Conf#: [id number]/DID#: [id number] Authenticated by Jonny Berg MD On 019 11:43:14 AM at 1143 PATIENT NAME: FRANCESCO NULL ACCOUNT #: [id number] 2018-12-28 07:28:00-00:00 [facility] ([facility]) Cardiology Progress Note REPORT#:[id number] REPORT STATUS: Signed DATE:12/28/18 TIME: 727 PATIENT: FRANCESCO NULL UNIT #: [id number] ROOM[facility]BED: [facility] : [facility] AGE: 73 SEX: M ATTEND: Edi Berg MD ADM AUTHOR: Radu Ruby MD * ALL edits or amendments must be made on the [employer] document * Subjective Chief Complaint: S/P L CEA, doing well Patient reports: No: chest pain, palpitations, shortness of breat h. Objective General VS/I O: 24 hour I O ending at 0700: 12/28 0700 12/27 1900 Intake Total 700 Output Total 500 Balance 700 -500 Intake, Oral 700 Number 1 Bowel Movements Number Voids 6 1 Output, Urine 500 Vital Signs: Date Time Temp Pulse Resp B/P B/P Pulse O2 O2 F low FiO2 Mean Ox Delivery Rate 12/28 0403 97.9 75 18 121/75 90.5 91 Room air 12/27 2313 97.7 90 18 136/77 97.0 92 Room air 12/27 2025 98.2 90 18 152/85 107.2 96 Room air 12/27 2000 Nasal 2.829203 cannula 12/27 1835 94 Room air / 1803 80 13 138/70 97 95 05/ 1733 80 12 133/67 93 95 / 1703 78 13 140/65 93 95 / 1633 82 19 121/59 84 92 05/ 1603 83 21 144/68 98 95 / 1533 83 24 137/60 86 95 05/ 1503 81 18 141/65 93 91 05/ 1433 155/70 101 94 05/12 1400 84 22 162/77 111 94 05/12 1330 78 15 95 05/12 1301 80 17 141/74 103 94 05/12 1256 82 21 164/81 114 96 05/12 1130 74 12 93 05/12 1030 83 21 99 05/12 1015 73 15 92 05/12 1000 72 16 93 05/12 0930 76 15 95 05/12 0915 85 23 95 05/12 0800 79 22 94 05/ 0744 94 Room air 21 12/27 0730 98.0 Status post: L CEA Physical Exam General appearance: alert, awake, oriented Head/Eyes: atraumatic, normocephalic, PERRLA ENT: moist mucosal membranes Neck: supple/no meningismus, no bruit/NL carotids, no JVD, no masses or swelling (S/P L CEA) Cardiovascular: CV assessment: regular rate and rhythm, BP puls es = bilaterally Murmur assessment: II/ CLYDE LLSB Respiratory: on oxygen, clear to auscultation, n o distress Abdomen: soft, non-tender, no mass/organomegaly, no pulsatile mass Genitourinary: [facility]is Upper extremity: UE assessment: no edema, 2+ peripheral pulses Lower extremity: LE assessment: no edema, 2+ peripheral pulses Musculoskeletal: full range of motion Neuro/BLENDER LABORER: alert, oriented X 3, CN II-XII intact , no motor deficits Wound/incision: Location: L CEA Site condition: dressing clean dry Psychiatry: normal affect, normal judgment/insig ht, normal mood, no hallucinations Diagnosis, Assessment Plan Free Text DxA P Notes Free Text DxA P Notes: IMPRESSION: S/P LCEA-doing well COD CAD HTN - improved. HLP PSVT PVC's MR RECOMMENDATION: PT OOB Continue current medical rx. OK to tele at 1535 RPT #:[id number] END OF REPORT 2018-12-27 16:47:00-00:00 [facility] ([facility]) Hospitalist Progress Note REPORT#:[id number] REPORT STATUS: Signed DATE:12/27/18 TIME: 1646 PATIENT: FRANCESCO NULL UNIT #: [id number] ROOM/BED: [address] : 49 AGE: 73 SEX: M ATTEND: Edi Berg MD ADM AUTHOR: Stefany Buckley MD * ALL edits or amendments must be made on the [employer]/computer document * Subjective Chief Complaint: resting comfortably Review of Systems Constitutional: Denies: chills, fever. Respiratory: Denies: productive cough (sputum), SOB. Cardiovascular: Denies: chest pain, TOLEDO (dyspnea on exertion). GI: Denies: abdominal pain, nausea, vomiting. Musculoskeletal: Denies: extremity pain, extremity swelling. Neuro: Denies: headache, lightheaded, numbness. Objective General VS/I O: Vital Signs: Date Time Temp Pulse Resp B/P B/P Pulse O2 O2 F low FiO2 Mean Ox Delivery Rate 12/27 1256 82 21 164/81 114 96 12/27 1130 74 12 93 12/27 1030 83 21 99 12/27 1015 73 15 92 12/27 1000 72 16 93 12/27 0930 76 15 95 12/27 0915 85 23 95 12/27 0800 79 22 94 12/27 0744 94 Room air 21 12/27 0730 98.0 12/27 0715 80 27 92 12/27 0700 77 26 96 12/26 1947 98.8 82 14 136/74 94 Room air 12/26 1941 Room air 12/26 1853 95 Room air 21 24 hour I O ending at 0700: 12/27 0700 12/26 1900 Intake Total 230.00 Output Total 905 480 Balance -905 -250.00 Intake, IV 230.00 Number Voids 2 Output, 30 Drainage Output, Urine 905 450 Patient 114.759 kg Weight Medications: Active Meds + DC'd Last 24 Hrs Famotidine 20 MG Q12HR PO Nifedipine 30 MG DAILY PO Aspirin 81 MG DAILY PO Atorvastatin Calcium 10 MG DAILY PO Clopidogrel Bisulfate 75 MG DAILY PO Losartan Potassium 100 MG DAILY PO Metoprolol Succinate 50 MG DAILY PO Famotidine 20 MG Q12HR IV (DC) Mupirocin 1 APPLIC BID NASAL Hydrocodone Bitart/Acetaminophen 1 TAB Q4H PRN P RN PO Hydrocodone Bitart/Acetaminophen 2 TAB Q4H PRN P RN PO Meperidine HCl 25 MG Q4H PRN PRN IM Acetaminophen 650 MG Q4H PRN PRN PO Benzocaine/Menthol 1 EACH Q2H PRN PRN MM (CKD) Bisacodyl 10 MG ASDIR PRN RECTAL Calcium Gluconate 1,000 MG ASDIR PRN IV Sodium Chloride 100 ML Nicardipine HCl 25 MG ASDIR PRN IV Sodium Chloride 250 ML Nifedipine 10 MG Q4H PRN PRN SL Ondansetron HCl 4 MG Q8H PRN PRN IV Phenol 5 SPRAY Q2H PRN PRN MM Potassium Chloride 10 MEQ ASDIR PRN PO Nicardipine HCl 25 MG ASDIR IV Sodium Chloride 250 ML Nifedipine 10 MG Q4H PRN PRN SL Sodium Nitroprusside 250 ML ASDIR IV Acetaminophen 650 MG Q4H PRN PRN PO Magnesium Hydroxide 30 ML DAILY PRN PRN PO Zolpidem Tartrate 5 MG BEDTIME PRN PRN PO Physical Exam General appearance: obese, alert, awake, oriente d ENT: moist mucosal membranes, left neck dressing intact Cardiovascular: normal heart sounds, regular rat e rhythm Respiratory: aerating well, clear to auscultatio n Abdomen: non-tender, normal bowel sounds Extremities: moves all, no edema Neuro/BLENDER LABORER: alert, oriented X 3 Treatment Prophylaxis Treatment Prophylaxis [facility] documentation: The data below has been impo rted from nursing documentation. Any exceptions have been noted below under Provider comments. _ Nursing Documentation Date [facility] inserted: 12/25/18 Date [facility] discontinued: 12/26/18 _ Provider comments: [] Diagnosis, Assessment Plan Hospital course to date: LICA stenosis s/p Left carotid endarterectomy with rec onstruction of the carotid artery with saphenous vein interposition graft Polycythemia? Acute renal insufficiency Hx of HTN HLD Plan: pt on cardene drip with close monitoring of the BP monitor CBC prn pain mx postop orders as per dr Berg 12/26- wbc and HH improving. - pain is managed. - off cardene drip. BP controlled 12/27- will continue with current mx. - ambulatory. - BP high. meds adjusted Quality Medications Current medication review: I attest that the foregoing medication list in t medical record is true, accurate, and complete to the best of my knowled ge. Electronically Signed by Stefany Buckley MD on at 1712 RPT #:[id number] END OF REPORT 2018-12-27 10:00:00-00:00 [facility] ([facility]) Cardiology Progress Note REPORT#:[id number] REPORT STATUS: Signed DATE:12/27/18 TIME: 999 PATIENT: FRANCESCO NULL UNIT #: [id number] ROOM/BED: [address] : 49 AGE: 73 SEX: M ATTEND: Edi Berg MD ADM AUTHOR: Radu Ruby MD * ALL edits or amendments must be made on the [employer]/computer document * Subjective Chief Complaint: S/P L CEA, doing well Patient reports: No: chest pain, palpitations, shortness of breat h. Objective General VS/I O: 24 hour I O ending at 0700: 12/27 0700 12/26 1900 Intake Total 230.00 Output Total 905 480 Balance -905 -250.00 Intake, IV 230.00 Number Voids 2 Output, 30 Drainage Output, Urine 905 450 Patient 114.759 kg Weight Vital Signs: Date Time Temp Pulse Resp B/P B/P Pulse O2 O2 F low FiO2 Mean Ox Delivery Rate 12/27 0744 94 Room air 21 12/27 0730 98.0 12/27 0715 80 27 92 12/27 0700 77 26 96 12/26 1947 98.8 82 14 136/74 94 Room air 12/26 1941 Room air 12/26 1853 95 Room air 21 12/26 1245 82 16 93 12/26 1230 91 98 12/26 1200 83 26 98 12/26 1145 73 15 98 12/26 1130 74 13 98 12/26 1115 77 12 93 12/26 1100 83 14 88 12/26 1045 80 14 92 12/26 1030 81 13 95 12/26 1015 78 14 96 12/26 1005 75 22 95 Medications: Active Meds + DC'd Last 24 Hrs Aspirin 81 MG DAILY PO Atorvastatin Calcium 10 MG DAILY PO Clopidogrel Bisulfate 75 MG DAILY PO Losartan Potassium 100 MG DAILY PO Metoprolol Succinate 50 MG DAILY PO Famotidine 20 MG Q12HR IV Mupirocin 1 APPLIC BID NASAL Cefazolin Sodium 1,000 MG Q8H IV (DC) Sodium Chloride 10 ML Hydrocodone Bitart/Acetaminophen 1 TAB Q4H PRN P RN PO Hydrocodone Bitart/Acetaminophen 2 TAB Q4H PRN P RN PO Meperidine HCl 25 MG Q4H PRN PRN IM Acetaminophen 650 MG Q4H PRN PRN PO Benzocaine/Menthol 1 EACH Q2H PRN PRN MM (CKD) Bisacodyl 10 MG ASDIR PRN RECTAL Calcium Gluconate 1,000 MG ASDIR PRN IV Sodium Chloride 100 ML Nicardipine HCl 25 MG ASDIR PRN IV Sodium Chloride 250 ML Nifedipine 10 MG Q4H PRN PRN SL Ondansetron HCl 4 MG Q8H PRN PRN IV Phenol 5 SPRAY Q2H PRN PRN MM Potassium Chloride 10 MEQ ASDIR PRN PO Nicardipine HCl 25 MG ASDIR IV Sodium Chloride 250 ML Nifedipine 10 MG Q4H PRN PRN SL Sodium Nitroprusside 250 ML ASDIR IV Acetaminophen 650 MG Q4H PRN PRN PO Magnesium Hydroxide 30 ML DAILY PRN PRN PO Zolpidem Tartrate 5 MG BEDTIME PRN PRN PO Post-op: day 1 Status post: L CEA Physical Exam General appearance: alert, awake, oriented Head/Eyes: atraumatic, normocephalic, PERRLA ENT: moist mucosal membranes Neck: supple/no meningismus, no bruit/NL carotids, no JVD, no masses or swelling (S/P L CEA) Cardiovascular: CV assessment: regular rate and rhythm, BP puls es = bilaterally Murmur assessment: II/ CLYDE LLSB Respiratory: on oxygen, clear to auscultation, n o distress Abdomen: soft, non-tender, no mass/organomegaly, no pulsatile mass Genitourinary: solis Upper extremity: UE assessment: no edema, 2+ peripheral pulses Lower extremity: LE assessment: no edema, 2+ peripheral pulses Musculoskeletal: full range of motion Neuro/BLENDER LABORER: alert, oriented X 3, CN II-XII intact , no motor deficits Wound/incision: Location: L CEA Site condition: dressing clean dry Psychiatry: normal affect, normal judgment/insig ht, normal mood, no hallucinations Diagnosis, Assessment Plan Free Text DxA P Notes Free Text DxA P Notes: IMPRESSION: S/P LCEA-doing well COD CAD HTN HLP PSVT PVC's MR RECOMMENDATION: PT OOB Continue current medical rx. OK to tele at [facility] RPT #:[id number] END OF REPORT 2018-12-26 21:21:00-00:00 [facility] ([facility]) Hospitalist Progress Note REPORT#:[id number] REPORT STATUS: Signed DATE:12/26/18 TIME: 2120 PATIENT: FRANCESCO NULL UNIT #: [id number] [facility] AGE: 73 SEX: M ATTEND: Edi Berg MD ADM AUTHOR: Stefany Buckley MD * ALL edits or amendments must be made on the [employer] document * Subjective Chief Complaint: doing better. resting in the bed Review of Systems Constitutional: Denies: chills, fever. Respiratory: Denies: productive cough (sputum), SOB. Cardiovascular: Denies: chest pain, TOLEDO (dyspnea on exertion). GI: Denies: abdominal pain, nausea, vomiting. Musculoskeletal: Denies: extremity pain, extremity swelling. Neuro: Denies: headache, lightheaded, numbness. Objective General VS/I O: Vital Signs: Date Time Temp Pulse Resp B/P B/P Pulse O2 O2 F low FiO2 Mean Ox Delivery Rate 12/26 1946 98.8 82 14 136/74 94 Room air 12/26 194 Room air 12/26 1853 95 Room air 21 12/26 1245 82 16 93 12/26 1230 91 98 12/26 1200 83 26 98 12/26 1145 73 15 98 12/26 1130 74 13 98 12/26 1115 77 12 93 12/26 1100 83 14 88 12/26 1045 80 14 92 12/26 1030 81 13 95 12/26 1015 78 14 96 12/26 1005 75 22 95 05/11 1000 79 12 94 05/11 0945 81 13 91 05/11 0930 83 24 98 05/11 0922 99 Nasal 2.255394 28 cannula 05/11 0900 79 24 97 05/11 0830 90 39 98 05/11 0815 82 15 88 05/11 0800 80 15 93 05/11 0745 80 18 91 05/11 0730 97.4 05/11 0730 75 10 93 05/11 0715 77 11 93 05/11 0700 79 16 96 05/11 0645 76 95 05/11 0630 80 15 95 05/11 0600 79 14 97 05/11 0545 84 18 99 05/11 0530 78 14 97 05/11 0515 77 14 94 05/11 0500 77 16 99 05/11 0445 81 13 94 05/11 0430 82 17 95 05/11 0415 79 14 95 05/11 0400 97.6 Nasal 2.015283 cannula 05/11 0400 82 12 95 05/11 0345 81 99 05/11 0330 83 14 96 05/11 0315 80 14 98 05/11 0300 82 15 98 05/11 0245 84 16 97 05/11 0230 83 15 97 05/11 0215 82 14 97 05/11 0200 84 16 96 05/11 0145 83 16 98 05/11 0130 86 16 96 05/11 0115 84 16 97 05/11 0100 87 17 96 05/11 0045 88 16 94 05/11 0030 85 14 98 05/11 0015 86 15 97 05/11 0000 97.4 05/11 0000 86 15 94 05/10 2345 89 17 93 05/10 2330 93 17 92 05/10 2315 87 17 98 05/10 2300 89 16 97 05/10 2245 88 17 99 05/10 2230 86 17 99 05/10 2215 87 17 98 05/10 2200 87 20 97 05/10 2145 90 17 99 05/10 2130 92 16 100 24 hour I O ending at 0700: 12/26 0700 05/ 1900 Intake Total 1850.00 1000.00 Output Total 1250 Balance 600.00 1000.00 Intake, IV 1050.00 1000.00 Intake, Oral 800 Output, 50 Drainage Output, Urine 1200 Patient 115 kg Weight Weight Standing scale Measurement Method Medications: Active Meds + DC'd Last 24 Hrs Aspirin 81 MG DAILY PO Atorvastatin Calcium 10 MG DAILY PO Clopidogrel Bisulfate 75 MG DAILY PO Losartan Potassium 100 MG DAILY PO Metoprolol Succinate 50 MG DAILY PO Aspirin 162 MG ONCE ONE PO (DC) Famotidine 20 MG Q12HR IV Mupirocin 1 APPLIC BID NASAL Cefazolin Sodium 1,000 MG Q8H IV (DC) Sodium Chloride 10 ML Hydrocodone Bitart/Acetaminophen 1 TAB Q4H PRN P RN PO Hydrocodone Bitart/Acetaminophen 2 TAB Q4H PRN P RN PO Meperidine HCl 25 MG Q4H PRN PRN IM Acetaminophen 650 MG Q4H PRN PRN PO Benzocaine/Menthol 1 EACH Q2H PRN PRN MM (CKD) Bisacodyl 10 MG ASDIR PRN RECTAL Calcium Gluconate 1,000 MG ASDIR PRN IV Sodium Chloride 100 ML Nicardipine HCl 25 MG ASDIR PRN IV Sodium Chloride 250 ML Nifedipine 10 MG Q4H PRN PRN SL Ondansetron HCl 4 MG Q8H PRN PRN IV Phenol 5 SPRAY Q2H PRN PRN MM Potassium Chloride 10 MEQ ASDIR PRN PO Potassium Chloride/Dextrose/Sod Cl 1,000 ML Q12H IV (DC) Nicardipine HCl 25 MG ASDIR IV Sodium Chloride 250 ML Nifedipine 10 MG Q4H PRN PRN SL Sodium Nitroprusside 250 ML ASDIR IV Potassium Chloride/Dextrose/Sod Cl 1,000 ML ONC ALL IV (DC) Acetaminophen 650 MG Q4H PRN PRN PO Magnesium Hydroxide 30 ML DAILY PRN PRN PO Zolpidem Tartrate 5 MG BEDTIME PRN PRN PO Physical Exam General appearance: obese, alert, awake, oriente d ENT: moist mucosal membranes, left neck dressing intact Cardiovascular: normal heart sounds, regular rat e rhythm Respiratory: aerating well, clear to auscultatio n Abdomen: non-tender, normal bowel sounds Extremities: moves all, no edema Neuro/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 LABORER: alert, oriented X 3 Results Findings/Data: Laboratory Tests 12/26 0450 Chemistry Sodium (137 - 145 MMOL/L) 140 Potassium (3.5 - 5.1 MMOL/L) 4.1 Chloride (98 - 107 MMOL/L) 103 Carbon Dioxide (22 - 30 MMOL/L) 30 BUN (9 - 20 MG/DL) 12 Creatinine (0.66 - 1.25 MG/DL) 1.00 Glomerular Filtr Rate > 60 Glucose (74 - 106 MG/DL) 108 H Calcium (8.4 - 10.2 MG/DL) 8.6 Magnesium (1.6 - 2.3 MG/DL) 1.8 Laboratory Tests 12/26 0450 Hematology WBC (3.8 - 9.8 K/MM3) 25.3 H RBC (3.95 - 5.67 M/MM3) 5.86 H Hgb (12.4 - 16.7 G/DL) 17.9 H Hct (35.9 - 49.5 %) 53.2 H MCV (81.7 - 96.1 fL) 91 MCH (27.6 - 33.2 pg) 30.5 MCHC (32.9 - 35.5 %) 33.6 RDW (12.1 - 15.2 %) 12.6 Plt Count (129 - 368 K/MM3) 159 MPV (7.4 - 10.4 fl) 10.0 Neut % (Auto) (43 - 75 %) 88.6 H Lymph % (Auto) (14 - 44 %) 5.5 L [place] % (Auto) (4 - 13 %) 5.3 Eos % (Auto) (0 - 6 %) 0.0 Baso % (Auto) (0 - 2 %) 0.2 Neut # (Auto) (2.0 - 7.6 K/mm3) 22.42 H Lymph # (Auto) (1.0 - 3.8 K/mm3) 1.40 [place] # (Auto) (0.1 - 0.8 K/mm3) 1.33 H Eos # (Auto) (0.0 - 0.2 K/mm3) 0.00 Baso # (Auto) (0.0 - 0.2 K/mm3) 0.05 Immature Gran % (0.0 - 2.0 %) 0.4 Nucleated RBC % (0 - 1.0 %) 0.0 Nucleated RBCs # (Man) (0.0 - 0.1 K/mm3) 0.00 Radiology data: Recent Impressions: RADIOLOGY - XR CHEST 1V 12/26 0915 Report Impression - Status: SIGNED Entered: 12/26/2018 0550 IMPRESSION: No acute pulmonary process. Impression By: [email or web address] - Ozzy Christensen M.D. Treatment Prophylaxis Treatment Prophylaxis Solis documentation: The data below has been impo rted from nursing documentation. Any exceptions have been noted below under Provider comments. _ Nursing Documentation Date solis inserted: 12/25/18 Date solis discontinued: 12/26/18 _ Provider comments: [] Diagnosis, Assessment Plan Hospital course to date: LICA stenosis s/p Left carotid endarterectomy with rec onstruction of the carotid artery with saphenous vein interposition graft Polycythemia? Acute renal insufficiency Hx of HTN HLD Plan: pt on cardene drip with close monitoring of the BP monitor CBC prn pain mx postop orders as per dr Berg 12/26- wbc and HH improving. - pain is managed. - off cardene drip. BP controlled Quality Medications Current medication review: I attest that the foregoing medication list in t he medical record is true, accurate, and complete to the best of my knowled ge. Electronically Signed by Stefany Buckley MD on at 1712 RPT #:[id number] END OF REPORT 2018-12-26 06:17:00-00:00 [facility] Note REPORT#:[id number] REPORT STATUS: Signed DATE:12/26/18 TIME: 616 PATIENT: FRANCESCO NULL UNIT #: [id number] ROOM[address]BED: [address] : [address] AGE: 73 SEX: M ATTEND: Edi Berg MD ADM AUTHOR: Dina Tinsley MD * ALL edits or amendments must be made on the el ectronic/computer document * Subjective Chief Complaint: S/P L CEA, doing well HPI: see recent H P Patient reports: No: complaints, chest pain, palpitations, shortn ess of breath, swelling. Nursing reports: No: complaints. Objective General VS/I O: 24 hour I O ending at 0700: 12/26 0700 12/25 1900 Intake Total 1850.00 1000.00 Output Total 1250 Balance 600.00 1000.00 Intake, IV 1050.00 1000.00 Intake, Oral 800 Output, 50 Drainage Output, Urine 1200 Patient 115 kg Weight Weight Standing scale Measurement Method Vital Signs: Date Time Temp Pulse Resp B/P B/P Pulse O2 O2 F low FiO2 Mean Ox Delivery Rate 12/26 1245 82 16 93 05/ 1230 91 98 05/ 1200 83 26 98 12/26 1145 73 15 98 12/26 1130 74 13 98 / 1115 77 12 93 05/ 1100 83 14 88 05/ 1045 80 14 92 05/ 1030 81 13 95 05/ 1015 78 14 96 05/ 1005 75 22 95 05/ 1000 79 12 94 05/ 0945 81 13 91 05/ 0930 83 24 98 05/ 0922 99 Nasal 2.445539 28 cannula 12/26 0900 79 24 97 05/ 0830 90 39 98 05/ 0815 82 15 88 05/ 0800 80 15 93 05/ 0745 80 18 91 05/ 0730 97.4 05/ 0730 75 10 93 05/11 0715 77 11 93 05/11 0700 79 16 96 05/11 0645 76 95 05/11 0630 80 15 95 05/11 0600 79 14 97 05/11 0545 84 18 99 05/11 0530 78 14 97 05/ 0515 77 14 94 05/ 0500 77 16 99 05/11 0445 81 13 94 05/ 0430 82 17 95 05/ 0415 79 14 95 05/ 0400 97.6 Nasal 2.358164 cannula 12/26 0400 82 12 95 05/ 0345 81 99 05/ 0330 83 14 96 05/ 0315 80 14 98 12/26 0300 82 15 98 12/26 0245 84 16 97 12/26 0230 83 15 97 12/26 0215 82 14 97 12/26 0200 84 16 96 12/26 0145 83 16 98 12/26 0130 86 16 96 12/26 0115 84 16 97 12/26 0100 87 17 96 12/26 0045 88 16 94 12/26 0030 85 14 98 12/26 0015 86 15 97 12/26 0000 97.4 12/26 0000 86 15 94 12/25 2345 89 17 93 12/25 2330 93 17 92 12/25 2315 87 17 98 12/25 2300 89 16 97 12/25 2245 88 17 99 12/25 2230 86 17 99 12/25 2215 87 17 98 12/25 2200 87 20 97 12/25 2145 90 17 99 12/25 2130 92 16 100 12/25 2115 92 23 99 12/25 2100 97.0 Nasal 2.036465 cannula 12/25 2099 88 14 98 12/25 2044 92 16 97 12/25 2029 89 10 93 12/25 2014 86 10 94 12/25 2009 95 Nasal 5.462679 40 cannula 12/26 1999 Nasal 2.676777 cannula 12/26 1999 91 19 98 12/25 1945 92 16 97 12/25 1930 96 95 12/25 1926 91 98 Medications: Active Meds + DC'd Last 24 Hrs Aspirin 81 MG DAILY PO Atorvastatin Calcium 10 MG DAILY PO Clopidogrel Bisulfate 75 MG DAILY PO Losartan Potassium 100 MG DAILY PO Metoprolol Succinate 50 MG DAILY PO Aspirin 162 MG ONCE ONE PO (DC) Famotidine 20 MG Q12HR IV Mupirocin 1 APPLIC BID NASAL Cefazolin Sodium 1,000 MG Q8H IV (DC) Sodium Chloride 10 ML Hydrocodone Bitart/Acetaminophen 1 TAB Q4H PRN P RN PO Hydrocodone Bitart/Acetaminophen 2 TAB Q4H PRN P RN PO Meperidine HCl 25 MG Q4H PRN PRN IM Acetaminophen 650 MG Q4H PRN PRN PO Benzocaine/Menthol 1 EACH Q2H PRN PRN MM (CKD) Bisacodyl 10 MG ASDIR PRN RECTAL Calcium Gluconate 1,000 MG ASDIR PRN IV Sodium Chloride 100 ML Nicardipine HCl 25 MG ASDIR PRN IV Sodium Chloride 250 ML Nifedipine 10 MG Q4H PRN PRN SL Ondansetron HCl 4 MG Q8H PRN PRN IV Phenol 5 SPRAY Q2H PRN PRN MM Potassium Chloride 10 MEQ ASDIR PRN PO Potassium Chloride/Dextrose/Sod Cl 1,000 ML Q12H IV (DC) Glycopyrrolate 0 .STK-MED ONE .ROUTE (DC) Neostigmine [place] 0 .STK-MED ONE .ROUTE (DC) Vancomycin HCl 0 .STK-MED ONE .ROUTE (DC) Heparin Sodium 0 .STK-MED ONE .ROUTE (DC) Fentanyl Citrate 0 .STK-MED ONE .ROUTE (DC) Nicardipine HCl 25 MG ASDIR IV Sodium Chloride 250 ML Nifedipine 10 MG Q4H PRN PRN SL Sodium Nitroprusside 250 ML ASDIR IV Rocuronium [place] 0 .STK-MED ONE .ROUTE (DC) Glycopyrrolate 0 .STK-MED ONE .ROUTE (DC) Ondansetron HCl 0 .STK-MED ONE .ROUTE (DC) Propofol 0 .STK-MED ONE .ROUTE (DC) Rocuronium [place] 0 .STK-MED ONE .ROUTE (DC) Fentanyl Citrate 0 .STK-MED ONE .ROUTE (DC) Midazolam HCl 0 .STK-MED ONE .ROUTE (DC) Bacitracin 0 .STK-MED ONE .ROUTE (DC) Nicardipine HCl 250 ML .STK-MED ONE IV (DC) Thrombin 0 .STK-MED ONE .ROUTE (DC) Epinephrine 250 ML .STK-MED ONE IV (DC) Heparin Sodium 0 .STK-MED ONE .ROUTE (DC) Heparin Sodium/Sodium Chloride 500 ML .STK-MED O NE IV (DC) Norepinephrine Bitartrate 0 .STK-MED ONE .ROUTE (DC) Phenylephrine HCl 100 ML .STK-MED ONE IV (DC) Sodium Chloride 10 ML .STK-MED ONE IV (DC) Protamine Sulfate 0 .STK-MED ONE .ROUTE (DC) Potassium Chloride/Dextrose/Sod Cl 1,000 ML ONCA LL IV (DC) Acetaminophen 650 MG Q4H PRN PRN PO Magnesium Hydroxide 30 ML DAILY PRN PRN PO Zolpidem Tartrate 5 MG BEDTIME PRN PRN PO Post-op: day 1 Status post: L CEA Physical Exam General appearance: alert, awake, oriented, no a cute distress, pleasant, conversational, mental status normal, no respira tory distress Head/Eyes: atraumatic, normocephalic, PERRLA ENT: moist mucosal membranes Neck: supple/no meningismus, no bruit/NL carotids, no JVD, no masses or swelling (S/P L CEA) Cardiovascular: CV assessment: regular rate and rhythm, BP puls es = bilaterally Murmur assessment: II/ CLYDE LLSB Respiratory: on oxygen, clear to auscultation, n o distress Abdomen: soft, non-tender, no mass/organomegaly, no pulsatile mass Genitourinary: solis Upper extremity: UE assessment: no edema, 2+ peripheral pulses Lower extremity: LE assessment: no edema, 2+ peripheral pulses Musculoskeletal: full range of motion Neuro/BLENDER LABORER: alert, oriented X 3, CN II-XII intact , no motor deficits Wound/incision: Location: L CEA Site condition: dressing clean dry Psychiatry: normal affect, normal judgment/insig ht, normal mood, no hallucinations Results Findings/Data: Laboratory Tests 12/26 Chemistry Sodium (137 - 145 MMOL/L) 140 142 Potassium (3.5 - 5.1 MMOL/L) 4.1 4.3 Chloride (98 - 107 MMOL/L) 103 107 Carbon Dioxide (22 - 30 MMOL/L) 30 26 Anion Gap (14 - 24 MMOL/L) 13 L BUN (9 - 20 MG/DL) 12 12 Creatinine (0.66 - 1.25 MG/DL) 1.00 1.10 Glomerular Filtr Rate > 60 > 60 Glucose (74 - 106 MG/DL) 108 H 110 H Calcium (8.4 - 10.2 MG/DL) 8.6 8.8 Magnesium (1.6 - 2.3 MG/DL) 1.8 1.6 Laboratory Tests 12/26 Hematology WBC (3.8 - 9.8 K/MM3) 25.3 H 26.4 H RBC (3.95 - 5.67 M/MM3) 5.86 H 5.98 H Hgb (12.4 - 16.7 G/DL) 17.9 H 18.2 *H Hct (35.9 - 49.5 %) 53.2 H 53.9 H MCV (81.7 - 96.1 fL) 91 90 MCH (27.6 - 33.2 pg) 30.5 30.4 MCHC (32.9 - 35.5 %) 33.6 33.8 RDW (12.1 - 15.2 %) 12.6 12.9 Plt Count (129 - 368 K/MM3) 159 180 MPV (7.4 - 10.4 fl) 10.0 9.2 Neut % (Auto) (43 - 75 %) 88.6 H 80.2 H Lymph % (Auto) (14 - 44 %) 5.5 L 11.2 L [place] % (Auto) (4 - 13 %) 5.3 6.7 Eos % (Auto) (0 - 6 %) 0.0 0.5 Baso % (Auto) (0 - 2 %) 0.2 0.3 Neut # (Auto) (2.0 - 7.6 K/mm3) 22.42 H 21.19 H Lymph # (Auto) (1.0 - 3.8 K/mm3) 1.40 2.95 [place] # (Auto) (0.1 - 0.8 K/mm3) 1.33 H 1.78 H Eos # (Auto) (0.0 - 0.2 K/mm3) 0.00 0.12 Baso # (Auto) (0.0 - 0.2 K/mm3) 0.05 0.08 Immature Gran % (0.0 - 2.0 %) 0.4 1.1 Nucleated RBC % (0 - 1.0 %) 0.0 0.0 Nucleated RBCs # (Man) (0.0 - 0.1 K/mm3) 0.00 0 .00 Laboratory Tests 12/26 1940 Chemistry Magnesium (1.6 - 2.3 MG/DL) 1.8 1.6 Radiology data: Recent Impressions: RADIOLOGY - XR CHEST 1V 12/25 1924 Report Impression - Status: SIGNED Entered: 12/25/20182013 IMPRESSION: 1. Status post left carotid endarterectomy. 2. Suspect mild CHF. Impression By: Tana Catalan M.D. RADIOLOGY - XR CHEST 1V 12/26 7286 Report Impression - Status: SIGNED Entered: 12/26/2018 0550 IMPRESSION: No acute pulmonary process. Impression By: LuizaRKBronwyn Christensen M.D. Results: labs reviewed, vital signs stable, EKG personally reviewed, rhythm personally rev'd, x-ray personally reviewed, cur rent med profile rev'd EKG Interpretation: normal sinus rhythm Telemetry Interpretation: SR Treatment Prophylaxis Treatment Prophylaxis Solis documentation: The data below has been impo rted from nursing documentation. Any exceptions have been noted below under Provider comments. _ Nursing Documentation Date solis inserted: 12/25/18 Date solis discontinued: _ Provider comments: [] Diagnosis, Assessment Plan Consultants: cardiovascular surgery Code status: full code Plan discussed with: patient, consultants, patie nt care team, nurse Free Text DxA P Notes Free Text DxA P Notes: IMPRESSION: S/P LCEA-doing well COD CAD HTN HLP PSVT PVC's MR RECOMMENDATION: PT OOB Same home card meds Floor OK Electronically Signed by Dina Tinsley MD on 0 12/26/18 at 1420 [facility] #:[id number] END OF REPORT 2018-12-26 05:41:00-00:00 [id number] [place] [address] PATIENT NAME: FRANCESCO NULL ADMIT DATE: ACCOUNT NO: [id number] ROOM NO: Z.SI01 AGE: 73 REPORT TYPE: ELECTROCARDIOGRAM SEX: M ADMITTING PHYSICIAN:Jonny Berg MD ATTENDING PHYSICIAN:Jonny Berg MD Order: [id number] Test Reason : CAD Test Date/Time Stamp: FriDec 26 2018 05:41:25 Blood Pressure : / mmHG Vent. Rate : 077 BPM Atrial Rate : 077 BPM P-R Int : 220 ms QRS Dur : 098 ms QT Int : 398 ms P-R-T Axes : 049 -09 034 degree s QTc Int : 450 ms Sinus rhythm with 1st degree AV block Septal infarct (cited on or before 25-DEC-2018) Abnormal ECG When compared with ECG of 25-DEC-2018 19:56, No significant change was found Confirmed by DINA TINSLEY ([id number]) on 12/26/2018 6:24:25 AM Referred By: Jonny Berg Confirmed by:DINA MCLEAN at 0624 PATIENT NAME: FRANCESCO NULL ACCOUNT #: [id number] 2018-12-26 05:41:00-00:00 [id number] [place] [address] PATIENT NAME: FRANCESCO NULL ADMIT DATE: 06/05 ACCOUNT NO: [id number] [facility] NO: Z.SI01 AGE: 73 REPORT TYPE: ELECTROCARDIOGRAM SEX: M ADMITTING PHYSICIAN:Jonny Berg MD ATTENDING PHYSICIAN:Jonny Berg MD Order: [id number] Test Reason : post op Test Date/Time Stamp: FriDec 26 2018 05:41:57 Blood Pressure : / mmHG Vent. Rate : 078 BPM Atrial Rate : 078 BPM P-R Int : 216 ms QRS Dur : 100 ms QT Int : 392 ms P-R-T Axes : 046 -10 040 degree s QTc Int : 446 ms Sinus rhythm with 1st degree AV block Septal infarct (cited on or before 25-DEC-2018) Abnormal ECG When compared with ECG of 26-DEC-2018 05:41, No significant change was found Confirmed by DINA TINSLEY ([id number]) on 12/26/2018 6:25:08 AM Referred By: Jonny Berg Confirmed by:DINA MCLEAN at 0625 PATIENT NAME: FRANCESCO NULL ACCOUNT #: [id number] 2018-12-26 05:41:00-00:00 [id number] [address] PATIENT NAME: FRANCESCO NULL ADMIT DATE: 06/05 ACCOUNT NO: [id number] ROOM NO: [facility] AGE: 73 REPORT TYPE: ELECTROCARDIOGRAM SEX: M ADMITTING PHYSICIAN:Jonny Berg MD ATTENDING PHYSICIAN:Jonny Berg MD Order: [id number] Test Reason : post op Test Date/Time Stamp: FriDec 26 2018 05:41:57 Blood Pressure : / mmHG Vent. Rate : 078 BPM Atrial Rate : 078 BPM P-R Int : 216 ms QRS Dur : 100 ms QT Int : 392 ms P-R-T Axes : 046 -10 040 degree s QTc Int : 446 ms Sinus rhythm with 1st degree AV block Septal infarct (cited on or before 25-DEC-2018) Abnormal ECG When compared with ECG of 26-DEC-2018 05:41, No significant change was found Confirmed by DINA TINSLEY ([id number]) on 12/26/2018 2:29:02 PM Referred By: Jonny Berg Confirmed by:DINA MCLEAN at 1429 PATIENT NAME: FRANCESCO NULL ACCOUNT #: [id number] 2018-12-25 20:00:00-00:00 [facility] ([facility]) Adult General Consultation REPORT#:[id number] REPORT STATUS: Signed DATE:12/25/18 TIME: 1999 PATIENT: FRANCESCO NULL UNIT #: [id number] ROOM/BED: 364-A : 47 AGE: 73 SEX: M ATTEND: Edi Berg MD ADM AUTHOR: Stefany Buckley MD * ALL edits or amendments must be made on the el [employer]/computer document * History of Present Illness Requesting Clinician: Dr. Berg Reason for consult: Left carotid endarterectomy postop HPI: 73 year old male patient was seen at bed side after left carotid endarterectomy done this evening. Patient had 95% high grade stenosis at left quispe tid artery just above bifurcation. Patient has PMH x of hypertension, hyperlipidemia, prostate cancer, thoracic aortic aneurysm, an d paroxysmal supraventricular tachycardia, dizziness , osteoarthritis, and mitral insufficiency History - Adult longitudinal Past medical history: Reports: Arthritis (osteoarthritis), Cancer (pro state), Hypertension, Dyslipidemia (hyperlipidemia). Additional medical history: Left carotid artery stenosis (95% high grade kenji nosis just above bifurcation) thoracic aortic aneurysm 3.85cm PSVT paroxysmal supraventricular tachycardia mitral insufficiency bradycardia Past surgical history: Reports: Appendectomy, Tameka cystectomy, Hernia repair (Rtx2, Lt), Knee procedure (bilateral knee replacement). Additional surgical history: Lt shoulder surgery, nose surgery Alcohol use: Alcohol use (several times a wk) Drug use: Marijuana Smoking status for patients 13 years old or olde r: Former Smoker Medications: Home Medications: Medication Dose/Rte/Freq Days Qty Entered Last Max Daily Dose Reviewed HYDROcodone/APAP 1 TAB PO 12/18/18 12/24/18 (NORCO 10/325) Q6H PRN PRN PAIN 0943 1540 Strength: 1 TAB TAB ASPIRIN 81 MG PO DAILY 12/18/18 12/24/18 Strength: 81 MG TAB.CHEW 0952 1539 LOSARTAN (COZAAR) 100 MG PO DAILY 12/18/1805/06 Strength: 100 MG TAB 0953 1540 METOPROLOL SUCC XL 50 MG PO DAILY 12/18/1805/06 (TOPROL XL) 0956 1540 Strength: 50 MG TAB.SA PRAVASTATIN (PRAVACHOL) 40 MG PO DAILY 12/18/18 12/24/18 Strength: 40 MG TAB 0957 1540 Current Hospital Medications: Anti-Infective Agents Sig/Cresencio Start time Last Medication Dose Route Stop Time Status Admin Cefazolin Sodium 1,000 MG Q8H 12/25 1945 AC (ANCEF) IV 12/26 1146 Sodium Chloride 10 ML (SODIUM CHLORIDE 0.9%) Vancomycin HCl 0 .STK-MED ONE 12/25 1810 DC (VANCOMYCIN HCL) .ROUTE Cefazolin Sodium 0 .STK-MED ONE 12/25 0949 DC (ANCEF) .ROUTE Cefazolin Sodium 2,000 MG ONCALL 12/25 0700 DC (ANCEF) IV 12/25 07 Autonomic Drugs Sig/Cresencio Start time Last Medication Dose Route Stop Time Status Admin Glycopyrrolate 0 .STK-MED ONE 12/25 1854 DC (ROBINUL IJ) .ROUTE Neostigmine [place] 0 .STK-MED ONE 12/25 1853 D C (NEOSTIGMINE .ROUTE METHYLSULFATE) Rocuronium [place] 0 .STK-MED ONE 12/25 1643 DC (ZEMURON) .ROUTE Glycopyrrolate 0 .STK-MED ONE 12/25 1631 DC (ROBINUL IJ) .ROUTE Rocuronium [place] 0 .STK-MED ONE 12/25 1542 DC (ZEMURON) .ROUTE Epinephrine 250 ML .STK-MED ONE 12/25 1418 DC (EPINEPHrine/NS 4MG/ IV 250ML) Norepinephrine 0 .STK-MED ONE 12/25 1418 DC Bitartrate .ROUTE (LEVOPHED BITARTATE) Phenylephrine HCl 100 ML .STK-MED ONE 12/25 141 8 DC (KIM-SYNEPHRINE/NS IV 10MG/100ML) Blood Formation,Coagulation Sig/Cresencio Start time Last Medication Dose Route Stop Time Status Admin Clopidogrel Bisulfate 75 MG DAILY 12/26 899 AC (PLAVIX) PO 01/25 901 Heparin Sodium 0 .STK-MED ONE 12/25 1802 DC (HEPARIN SODIUM) .ROUTE Thrombin 0 .STK-MED ONE 12/25 1419 DC (RECOTHROM) .ROUTE Heparin Sodium 0 .STK-MED ONE 12/25 1418 DC (HEPARIN SODIUM) .ROUTE Heparin Sodium/ 500 ML .STK-MED ONE 12/25 1418 DC Sodium Chloride IV (HEPARIN 1000 UNITS/ NS 500ML) Protamine Sulfate 0 .STK-MED ONE 12/25 1417 DC (PROTAMINE SULFATE) .ROUTE Cardiovascular Drugs Sig/Cresencio Start time Last Medication Dose Route Stop Time Status Admin Atorvastatin Calcium 10 MG DAILY 12/26 899 AC (LIPITOR) PO 01/25 901 Losartan Potassium 100 MG DAILY 12/26 899 AC (COZAAR) PO 01/25 901 Metoprolol Succinate 50 MG DAILY 12/26 899 AC (TOPROL XL) PO 01/25 901 Nicardipine HCl 25 MG ASDIR PRN 12/25 192 AC (CARDENE I.V.) IV 01/24 1921 Sodium Chloride 250 ML (SODIUM CHLORIDE 0.9%) Nifedipine 10 MG Q4H PRN PRN 12/25 192 AC (PROCARDIA) SL 01/24 1921 Nicardipine HCl 25 MG ASDIR 12/25 1650 AC (CARDENE I.V.) IV 01/24 165 Sodium Chloride 250 ML (SODIUM CHLORIDE 0.9%) Nifedipine 10 MG Q4H PRN PRN 12/25 165 AC (PROCARDIA) SL 01/24 165 Sodium Nitroprusside 250 ML ASDIR 12/25 165 AC (NIPRIDE IVPB) IV 01/24 1651 Nicardipine HCl 250 ML .STK-MED ONE 12/25 1419 DC (CARDENE 25MG/250ML IV PREMIX) Central Nervous System Agents Sig/Cresencio Start time Last Medication Dose Route Stop Time Status Admin Aspirin 81 MG DAILY 12/26 899 AC (CHILDREN'S ASPIRIN) PO 01/25 901 Aspirin 162 MG ONCE ONE 12/25 2124 AC (ASPIRIN EC) PO 12/25 2125 Hydrocodone Bitart/ 1 TAB Q4H PRN PRN 12/25 19 45 AC Acetaminophen PO 01/24 1946 (NORCO 5/325 TABLET (C-II)) Hydrocodone Bitart/ 2 TAB Q4H PRN PRN 12/25 194 5 AC Acetaminophen PO 01/24 1946 (NORCO 5/325 TABLET (C-II)) Meperidine HCl 25 MG Q4H PRN PRN 12/25 1944 AC (DEMEROL (C-II)) IM 01/24 1946 Acetaminophen 650 MG Q4H PRN PRN 12/25 192 AC (TYLENOL) PO 01/24 1921 Fentanyl Citrate 0 .STK-MED ONE 12/25 165 DC (SUBLIMAZE (C-II)) .ROUTE Propofol 0 .STK-MED ONE 12/25 1542 DC (DIPRIVAN) .ROUTE Fentanyl Citrate 0 .STK-MED ONE 12/25 154 DC (fentaNYL CITRATE (C- .ROUTE II)) Midazolam HCl 0 .STK-MED ONE 05/10 1541 DC (VERSED (C-IV)) .ROUTE Acetaminophen 650 MG Q4H PRN PRN 12/24 193 AC (TYLENOL) PO 01/24 1936 Zolpidem Tartrate 5 MG BEDTIME PRN PRN 12/24 19 30 AC (AMBIEN (C-IV)) PO 01/23 1931 Electrolytic, Caloric, And Anat Sig/Cresencio Start time Last Medication Dose Route Stop Time Status Admin Calcium Gluconate 1,000 MG ASDIR PRN 12/26 1919 AC (CALCIUM GLUCONATE IV 01/24 1921 10%) Sodium Chloride 100 ML (SODIUM CHLORIDE 0.9%) Potassium Chloride 10 MEQ ASDIR PRN 12/25 192 AC (K-DUR) PO 01/24 1921 Potassium Chloride/ 1,000 ML Q12H 12/26 1919 AC Dextrose/Sod Cl IV 01/24 1921 (DEXTROSE 5%-1/2NS- KCL 20MEQ) Sodium Chloride 10 ML .STK-MED ONE 12/25 1418 D C (SODIUM CHLORIDE IV 0.9%) Potassium Chloride/ 1,000 ML ONCALL 12/25 07 AC Dextrose/Sod Cl IV 01/24 07 (DEXTROSE 5%-1 4NS- KCL 20MEQ) Sodium Chloride 20 ML ONCALL 12/25 0700 DC (SODIUM CHLORIDE IV 12/25 0701 0.9%) Eye, Ear, Nose And Throat (Een Sig/Cresencio Start time Last Medication Dose Route Stop Time Status Admin Benzocaine/Menthol 1 EACH Q2H PRN PRN 12/25 192 0 CKD (Cepacol Sore Throat MM 01/24 1921 Lozenge) Phenol 5 SPRAY Q2H PRN PRN 12/26 1919 AC (CHLORASEPTIC) MM 01/24 1921 Bacitracin 0 .STK-MED ONE 12/25 1419 DC (BACITRACIN STERILE) .ROUTE Gastrointestinal Drugs Sig/Cresencio Start time Last Medication Dose Route Stop Time Status Admin Famotidine 20 MG Q12HR 12/25 2100 AC (PEPCID) IV 01/24 2101 Bisacodyl 10 MG ASDIR PRN 12/26 1919 AC (BISACODYL SUPP) RECTAL 01/24 1921 Ondansetron HCl 4 MG Q8H PRN PRN 12/25 192 AC (ZOFRAN) IV 01/24 1921 Ondansetron HCl 0 .STK-MED ONE 12/25 1542 DC (ZOFRAN) .ROUTE Magnesium Hydroxide 30 ML DAILY PRN PRN 12/24 1 935 AC (MILK OF MAGNESIA) PO 01/23 1936 Skin And Mucous Membrane Agent Sig/Cresencio Start time Last Medication Dose Route Stop Time Status Admin Mupirocin 1 APPLIC BID 12/25 2100 AC (BACTROBAN NASAL - NASAL 12/30 0901 ADULT ICU) Allergies: Coded Allergies: No Known Drug Allergies (12/27/18) 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 Any exceptions have been noted below under Provider comments. _ Nursing Documentation Date solis inserted: 12/25/18 Date solis discontinued: _ Provider comments: [] Diagnosis, Assessment Plan Free Text DxA P Notes Free Text DxA P Notes: Assessment LICA stenosis s/p Left carotid endarterectomy with rec onstruction of the carotid artery with saphenous vein interposition graft Polycythemia? Acute renal insufficiency Hx of HTN HLD Plan: pt on cardene drip with close monitoring of the BP monitor CBC prn pain mx postop orders as per dr Berg Quality Medications Current medication review: I attest that the foregoing medication list in t he medical record is true, accurate, and complete to the best of my knowled ge. Electronically Signed by Stefany Buckley MD on at 1712 RPT #:[id number] END OF REPORT 2018-12-25 19:56:00-00:00 [id number] [address] PATIENT NAME: FRANCESCO NULL ADMIT DATE: 06/05 ACCOUNT NO: [id number] ROOM NO: [facility] AGE: 73 REPORT TYPE: ELECTROCARDIOGRAM SEX: M ADMITTING PHYSICIAN:Jonny Berg MD ATTENDING PHYSICIAN:Jonny Berg MD Order: [id number] Test Reason : CAD Test Date/Time Stamp: FriDec 25 2018 19:56:09 Blood Pressure : / mmHG Vent. Rate : 091 BPM Atrial Rate : 091 BPM P-R Int : 206 ms QRS Dur : 092 ms QT Int : 372 ms P-R-T Axes : 052 -13 050 degree s QTc Int : 457 ms Normal sinus rhythm Septal infarct , age undetermined Abnormal ECG When compared with ECG of 19-DEC-2018 05:36, Questionable change in QRS axis Confirmed by DINA TINSLEY ([id number]) on 12/26/2018 6:24:15 AM Referred By: Jonny Berg Confirmed by:DINA MCLEAN at 0624 PATIENT NAME: FRANCESCO NULL ACCOUNT #: [id number] 2018-12-25 19:28:00-00:00 [facility] ([facility]) Brief Op Note REPORT#:[id number] REPORT STATUS: Signed DATE:12/25/18 TIME: 1927 PATIENT: FRANCESCO NULL UNIT #: [id number] ROOM/BED: [address] : 47 AGE: 73 SEX: M ATTEND: Edi Berg MD ADM AUTHOR: Lala Acuña * ALL edits or amendments must be made on the [employer] document * Op/Inv Proc Note - Brief ORM Surgeries: Surgery Date and Time: 12/25/20181714 Proposed Primary Procedure: LEFT CAROTID ENDART ERECTOMY AND Pre-procedure diagnosis: LICA stenosis Post-procedure diagnosis: same as pre procedure dx Procedures performed: Left carotid endarterectomy with reconstruction of the carotid artery with saphenous vein interposition graft. Inse rtion of right subclavian central line Primary Surgeon: Jonny Berg Fowl Blood Tester(s): Lala Acuña PA-C Anesthesiologist: Dr. Bose Anesthesia: general anesthesia Findings: See detailed op report Complications: none Estimated blood loss in ml's: 500cc Specimens removed/altered: left carotid plaque Drain(s): Solis Catheter Placed, JOSLYN drain Disposition: ICU, stable at 1932 RPT #:[id number] END OF REPORT 2018-12-25 19:28:00-00:00 [facility] ([facility]) Brief Op Note REPORT#:[id number] REPORT STATUS: Signed DATE:12/25/18 TIME: 1927 PATIENT: FRANCESCO NULL UNIT #: [id number] ROOM/BED: SI-A : 47 AGE: 73 SEX: M ATTEND: Edi Berg MD ADM AUTHOR: Lala Acuña * ALL edits or amendments must be made on the [employer] document * Lala Acuña 12/25/181927: Op/Inv Proc Note - Brief ORM Surgeries: Surgery Date and Time: 12/25/20181714 Proposed Primary Procedure: LEFT CAROTID ENDART ERECTOMY AND Pre-procedure diagnosis: LICA stenosis Post-procedure diagnosis: same as pre procedure dx Procedures performed: Left carotid endarterectomy with reconstruction of the carotid artery with saphenous vein interposition graft. Inse rtion of right subclavian central line Primary Surgeon: Jonny Berg Fowl Blood Tester(s): Lala Acuña PA-C Anesthesiologist: Dr. Bose Anesthesia: general anesthesia Findings: See detailed op report Complications: none Estimated blood loss in ml's: 500cc Specimens removed/altered: left carotid plaque Drain(s): Solis Catheter Placed, JOSLYN drain Disposition: ICU, stable at 1932 RPT #:[id number] END OF REPORT 2018-12-25 19:28:00-00:00 [facility] ([facility]) Brief Op Note REPORT#:[id number] REPORT STATUS: Signed DATE:12/25/18 TIME: 1927 PATIENT: FRANCESCO NULL UNIT #: [id number] ROOM/BED: [address] : 47 AGE: 73 SEX: M ATTEND: Edi Berg MD ADM AUTHOR: Lala Acuña * ALL edits or amendments must be made on the [employer]/computer document * Lala Acuña 12/25/181927: Op/Inv Proc Note - Brief ORM Surgeries: Surgery Date and Time: 12/25/2018 1715 Proposed Primary Procedure: LEFT CAROTID ENDART ERECTOMY AND Pre-procedure diagnosis: LICA stenosis Post-procedure diagnosis: same as pre procedure dx Procedures performed: Left carotid endarterectomy with reconstruction of the carotid artery with saphenous vein interposition graft. Inse rtion of right subclavian central line Primary Surgeon: Jonny Berg Fowl Blood Tester(s): Lala Acuña PA-C Anesthesiologist: Dr. Bose Anesthesia: general anesthesia Findings: See detailed op report Complications: none Estimated blood loss in ml's: 500cc Specimens removed/altered: left carotid plaque Drain(s): Solis Catheter Placed, JOSLYN drain Disposition: ICU, stable at 1932 at 0019 RPT #:[id number] END OF REPORT 2018-12-25 19:28:00-00:00 [facility] ([facility]) Brief Op Note REPORT#:[id number] REPORT STATUS: Signed DATE:12/25/18 TIME: 1927 PATIENT: FRANCESCO NULL UNIT #: [id number] ROOM/BED: [address] : 47 AGE: 73 SEX: M ATTEND: Edi Berg MD ADM AUTHOR: Lala Acuña * ALL edits or amendments must be made on the [employer]/computer document * Lala Acuña 12/25/181927: Op/Inv Proc Note - Brief ORM Surgeries: Surgery Date and Time: 12/25/2018 1715 Proposed Primary Procedure: LEFT CAROTID ENDART ERECTOMY AND Pre-procedure diagnosis: LICA stenosis Post-procedure diagnosis: same as pre procedure dx Procedures performed: Left carotid endarterectomy with reconstruction of the carotid artery with saphenous vein interposition graft. Inse rtion of right subclavian central line Primary Surgeon: Jonny Berg Fowl Blood Tester(s): Lala Acuña PA-C Anesthesiologist: Dr. Bose Anesthesia: general anesthesia Findings: See detailed op report Complications: none Estimated blood loss in ml's: 500cc Specimens removed/altered: left carotid plaque Drain(s): Solis Catheter Placed, JOSLYN drain Disposition: ICU, stable Stefany Buckley 12/25/182024: Op/Inv Proc Note - Brief Dictation number: Assigned to Dr Buckley in error at 1932 at 0019 RPT #:[id number] END OF REPORT 2018-12-25 19:28:00-00:00 [facility] ([facility]) Brief Op Note REPORT#:[id number] REPORT STATUS: Signed DATE:12/25/18 TIME: 1927 PATIENT: FRANCESCO NULL UNIT #: [id number] ROOM/BED: [address] : 47 AGE: 73 SEX: M ATTEND: Edi Berg MD ADM AUTHOR: Lala Acuña * ALL edits or amendments must be made on the [employer]computer document * Lala Acuña 12/25/188: Op/Inv Proc Note - Brief ORM Surgeries: Surgery Date and Time: 12/25/2018 1715 Proposed Primary Procedure: LEFT CAROTID ENDART ERECTOMY AND Pre-procedure diagnosis: LICA stenosis Post-procedure diagnosis: same as pre procedure dx Procedures performed: Left carotid endarterectomy with reconstruction of the carotid artery with saphenous vein interposition graft. Inse rtion of right subclavian central line Primary Surgeon: Jonny Berg Fowl Blood Tester(s): Lala Acuña PA-C Anesthesiologist: Dr. Bose Anesthesia: general anesthesia Findings: See detailed op report Complications: none Estimated blood loss in ml's: 500cc Specimens removed/altered: left carotid plaque Drain(s): Solis Catheter Placed, JOSLYN drain Disposition: ICU, stable Stefany Buckley 12/25/182024: Op/Inv Proc Note - Brief Dictation number: Assigned to Dr Buckley in error at 1932 at 0019 Electronically Signed by Stefany Buckley MD on at 1701 [facility] #:[id number] END OF REPORT 2018-12-19 12:00:00-00:00 [id number] [place] [address] PATIENT NAME: FRANCESCO NULL ADMIT DATE: 12/04 ACCOUNT NO: [id number] ROOM NO: AGE: 73 REPORT TYPE: CONSULTATION REPORT SEX: M ADMITTING PHYSICIAN: ATTENDING PHYSICIAN:Dina Tinsley MD CONSULTATION DATE: 12/19/2018 CONSULTING PHYSICIAN: Jonny Berg MD CARDIAC SURGERY SERVICE DIAGNOSIS: High-grade left internal carotid precious ry stenosis, hypertension, hyperlipidemia, thoracic aortic aneurysm 3.85 cm , history of PSVT paroxysmal supraventricular tachycardia. BRIEF HISTORY: This is a 73-year-old man still w orking. 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 He is very active. The patient has his tory of hypertension and hyperlipidemia. No diabetes. He was a smoker man y years ago in the past, but has stopped. Stress test 2 years ago was negativ e. Echo 2 years ago showed normal ventricular function without significant valvular disease. The patient had cardiac cath today, which showed some mild d isease in the LAD, which was treated medically. The patient has a high-grade left internal carotid artery stenosis and carotid angiogram over 95% high-gra de stenosis just above the bifurcation. 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 The patient denies having a prev ious stroke or TIA, has had some dizziness about 7 years ago, but nothing mo re recently. No recent symptoms. The patient denies any other cardiac s ymptoms. He has no history of DVT, phlebitis, varicose veins, or varic ose vein stripping. He does notice his feet are somewhat cold. He has had bilateral kne e replacement. He has had right hernia x2, gallbladder , left shoulder surgery, prostate CA, appendix, left hernia and a nose fracture. REVIEW OF SYSTEMS: Otherwise, is negative. No hi story of hemophilia, coagulopathy, varicose vein stripping or phlebit is. MEDICATIONS: He takes metoprolol, he takes aspir in and he takes pravastatin. REVIEW OF SYSTEMS: Otherwise is negative. PHYSICAL EXAMINATION: GENERAL: Demonstrates a well-nourished male, in no apparent distress. NECK: No carotid bruits. Carotid pulse present. Radial pulse present. CHEST: Clear. HEART: Regular rate and rhythm without murmurs. ABDOMEN: Soft and nontender without masses. BREASTS AND RECTAL: Not done. PATIENT NAME: FRANCESCO NULL ACCOUNT #: [id number] NEUROLOGIC: Physiological. EXTREMITIES: Popliteal pulses are present. Pedal pulse absent. ASSESSMENT: High-grade left internal carotid art daniel stenosis. RECOMMENDATION: Plan is for left carotid endarte rectomy this week. The procedure, the alternatives, possible risks and complications including the inherent and other risks of surgery explained to the patient and family understand and accept want t o proceed, had a chance to ask question and want to proceed. Dictated By: Jonny Berg MD WT: CON:KARY/LUKE/WOODROW Conf#: [id number]/DID#: [id number] Authenticated and Edited by Jonny Berg MD On 12/19/18 10:42:27 PM at 2244 PATIENT NAME: FRANCESCO NULL ACCOUNT #: [id number] 2018-12-19 07:22:00-00:00 [id number] [place] [address] PATIENT NAME: FRANCESCO NULL ADMIT DATE: 12/04 ACCOUNT NO: [id number] ROOM NO: AGE: 73 REPORT TYPE: CARDIAC CATHETERIZATION REPORT SEX: M ADMITTING PHYSICIAN: ATTENDING PHYSICIAN:Dina Tinsley MD PROCEDURE DATE: 12/19/2018 CARDIOVASCULAR PROCEDURE BANK VAULT CLERK: Dina Tinsley MD TITLE OF THE PROCEDURE: Left heart catheterizati on and selective bilateral carotid angiograms. INDICATION FOR THE PROCEDURE: Dyspnea, multiple cardiovascular risk factors, coronary artery disease, and critical left carot id disease. ESTIMATED BLOOD LOSS: Minimal. COMPLICATIONS: None. CONTRAST: 90 mL. ANESTHESIA: Conscious sedation with Versed and f entanyl and 1% lidocaine for local anesthesia. FINAL DIAGNOSES: Single-vessel coronary artery d isease, 50% LAD, left ventricular end-diastolic pressure elevated at 2 0, critical left carotid disease, 95% at the proximal internal. The recom mendation is medical therapy for carotid disease and left carotid endarterect chung. PROCEDURE IN DETAIL: After informed consent, the patient was brought to the cardiac catheterization lab in a stable fasting nonsedated state. He was prepped and draped in the usual sterile fashion. After conscious sedation, 1% lidocaine was administered to the right common f emoral artery area for local anesthesia. A 6-Romanian sheath was placed in the right common femoral artery using standard techniques and fluoroscop y. After heparinization, left coronary angiogram showed 30% proximal LAD plaque and 50% after the first diagonal. The rest of the LAD, circumflex, ramus, and the right coronary appeared to be free of angiographic disease. The right coronary angiogram showed a dominant vessel, smaller than the circumflex system. Left ventricular angiogram showed ejection fraction of 60%, left ventricular end-diastolic pressure of 20 and no significant aortic valve gradient or wall motion abnormality. Selective right carotid angiogram showed a 20% plaque at the bul b. Selective left carotid angiogram showed a 95% proximal stenosis. The ri ght groin was sealed using basket. There were no complications. The patient tolerated the procedure well. He was transferred back to the holding area for observation. He will be PATIENT NAME: FRANCESCO NULL ACCOUNT #: [id number] getting a surgical consultation for his left carotid and to come back for left carotid surgery soon. Dictated By: Dina Tinsley MD WT: CATH:EFFIE/ARRON/WOODROW Conf#: [id number]/DID#: [id number] Authenticated by Dina Tinsley MD On 11/2018 12:16:57 PM at 1217 PATIENT NAME: FRANCESCO NULL ACCOUNT #: [id number] 2018-12-19 05:36:00-00:00 [id number] [place] [address] PATIENT NAME: FRANCESCO NULL ADMIT DATE: 12/04 ACCOUNT NO: [id number] ROOM NO: AGE: 73 REPORT TYPE: ELECTROCARDIOGRAM SEX: M ADMITTING PHYSICIAN: ATTENDING PHYSICIAN:Dina Tinsley MD Order: [id number] Test Reason : PROCEDURE Test Date/Time Stamp: FriDec 19 2018 05:36:05 Blood Pressure : / mmHG Vent. Rate : 069 BPM Atrial Rate : 069 BPM P-R Int : 222 ms QRS Dur : 092 ms QT Int : 406 ms P-R-T Axes : 043 049 048 degree s QTc Int : 435 ms Sinus rhythm with 1st degree AV block Otherwise normal ECG No previous ECGs available Confirmed by DINA TINSLEY ([id number]) on 12/19/2018 7 :29:15 AM Referred By: Dina Tinsley Confirmed by:DINA MENDOZA at 0729 PATIENT NAME: FRANCESCO NULL ACCOUNT #: [id number] 2018-12-16 18:39:00-00:00 [id number] [place] [address] PATIENT NAME: FRANCESCO NULL ADMIT DATE: 12/04 ACCOUNT NO: [id number] ROOM NO: AGE: 73 REPORT TYPE: HISTORY AND PHYSICAL SEX: M ADMITTING PHYSICIAN: ATTENDING PHYSICIAN:Dina Tinsley MD PATIENT NAME: FRANCESCO NULL ADMIT DATE:12/19/2018 ADMISSION DATE: 12/19/2018 REASON FOR ADMISSION: Cardiac and carotid angiog martin for significant carotid disease and possible significant coronary artery disease for possible revascularization and left carotid surgery. HISTORY OF PRESENT ILLNESS: Francesco is a 73-year- old patient with suspected coronary artery disease and multiple cardiovascu lar risk factors, who was recently followed up for his carotid plaquing. William mcdonald has had a less than 50% disease on 11/16/2011. The patient has been nonc ompliant with his medical therapy and risk factor modification. He came ba for a carotid Doppler on 12/15/2018 and that showed t he left carotid to be almost 100% occluded at 99% to 100. The right one has not changed. He has dyspn ea on mild exertion and multiple cardiovascular risk factors. Given this information and the high likelihood of need for left carotid endarterecto my and the need for carotid angiograms, the patient is h ere for cardiac and carotid angiograms to assess his coronaries and to assess for further rev ascularization. The patient has had an echocardiogram in 2017 that showed mild mitral regurgitation and mildly dilated ascending aorta with normal ejection fraction. William mcdonald has had a negative nuclear stress test in 2017. He has paroxysmal supraventricular tachycardia and PVCs on Holter monitors. He has palpitations and dyspnea , but no chest pains. No dizziness. No syncope. No congestive heart failu re. PAST MEDICAL HISTORY: Remarkable for hypertensio n, hyperlipidemia, paroxysmal supraventricular tachycardia, PVCs, bradycardia, mitral insufficiency, and osteoarthritis. PAST SURGICAL HISTORY: He has had knee surgeries , hernia surgeries, cholecystectomy, shoulder surgery, prostate canc er removal, appendix removal, left hernia and broken nose. ALLERGIES: NO KNOWN DRUG ALLERGIES. MEDICATIONS: Aspirin 81 mg daily, losartan 100 m g daily, metoprolol 50 mg daily, and pravastatin 40 mg daily. SOCIAL HISTORY: The patient does not smoke. He d rinks several times a week. There is history of street drug use. He does smoke marijuana that he bought in [place]. FAMILY HISTORY: Is detailed in the chart. No pre mature atherosclerosis. PATIENT NAME: FRANCESCO NULL ACCOUNT #: [id number] REVIEW OF SYSTEMS: Remarkable for the above in a ddition to fatigue, weight gain, decreased hearing, snoring. No acute GI or symptoms. No TIAs or strokes. He does have anxiety and depression sym ptoms. He does admit to loss of balance at times, but no dizziness or syncope . PHYSICAL EXAMINATION: GENERAL: Reveals a pleasant elderly male in no a cute distress. VITAL SIGNS: Blood pressure 140/78, puls e 78 and regular, respiratory rate 16, unlabored, temperature afebrile. HEENT: Head, atraumatic and normocephali c. Eyes, ENT examination within normal for age. NECK: Supple. No jugular venous distention, brui ts, or lymphadenopathy. Normal upstroke. LUNGS: Clear and resonant. HEART: Regular rate and rhythm, 2/6 syst olic ejection murmur at the left lower sternal border. No gallops. ABDOMEN: Soft, obese. No tenderness, no organome penelope, no masses or bruits. EXTREMITIES: 2+ distal pulses. No edema, cyanosi s, or clubbing. NEUROLOGIC: Alert and oriented x3. The examinati on appears to be nonfocal. LABORATORY DATA: Pending. Noninvasive cardiovasc ular workup enclosed. IMPRESSION AND PLAN: This is a 73-year-old patie nt with critical carotid disease, high likelihood of significant coronary artery disease, who has multiple cardiovascular risk factors. He is here for cardiac and carotid angiograms to assess for left carotid surgery. The recommendation is to proceed with the above procedures. The risks and benefits of the planned proc edures were discussed in detail with the patient and he is willing to proceed rest as per orders. Dictated By: Dina Tinsley MD WT: HP:KARY/ARRON/WOODROW Conf#: [id number]/DID#: [id number] Authenticated and Edited by Dina Tinsley MD On 12/19/18 6:14:44 AM at 0631 PATIENT NAME: FRANCESCO NULL ACCOUNT #: [id number]
[2023-02-24] MEDS ORDERED: ASPIRIN 81 MG CHEWABLE TABLET ONE (17:23)
--- NOTE | 2023-02-24 17:24 | RAD REPORT ---
EXAM DESCRIPTION: RAD - Chest Single View - 02/24/2023 5:17 pm CLINICAL HISTORY: CHEST PAIN COMPARISON: Chest Single View dated 02/02/2018; CHEST SINGLE VIEW dated 11/29/2011; Angio Aorta For D issection dated 02/02/2018 FINDINGS: Lines: None. Lungs: No evidence of edema or pneumonia. Pleural: No significant pleural effusions or pneumothorax. Cardiac: The heart size is within normal limits. Mediastinum: Within normal limits. Bones: No acute fractures. Other: None IMPRESSION: No acute cardiopulmonary disease.
[2023-02-24 17:29] LABS: Protime INR 1.01
[2023-02-24 17:47] LABS: Absolute Lymphocytes (CBC) 2.2 K/uL (0.7-4.9); Hematocrit 55.3 % (39.6-49.0); MCV 88.7 fL (80-100); MPV 7.2 fL (7.6-11.3); RBC Red Blood Cell Count 6.23 M/uL (4.33-5.43)
[2023-02-24 17:47] LABS: Albumin 3.4 g/dL (3.4-5.0); Bilirubin Direct 0.2 mg/dL (0-0.2); Bilirubin Indirect, Calculated 0.6 mg/dL (0.2-0.8); Bilirubin Total 0.8 mg/dL (0.2-1.0); Magnesium 2.1 mg/dL (1.6-2.4); Potassium 3.9 mEq/L (3.5-5.1); Protein, Total 7.2 g/dL (6.4-8.2); Troponin High Sensitivity 17.7 pg/mL (<58.9)
[2023-02-24] MEDS ORDERED: NA CHLORIDE 0.9% 1,000 ML ONE (18:03)
--- NOTE | 2023-02-24 20:04 | ER ---
Nurse's Notes [facility] Name: Francesco Null Age: 77 yrs Sex: Male : 1945 Arrival Date: 02/24/2023 Time: 16:50 Bed 8 Private MD: Diagnosis: Chest pain, unspecified;Essential (primary) hypertension Presentation: 02/24 16:57 Chief complaint:. cm10 17:01 Chief complaint: Patient states: chest pain to the center of his chest that has cm10 resolved. Pt states that he received some bad news and that led to him to start hyperventilating and then started having chest pain and elevated BP. Coronavirus screen: Vaccine status: Patient reports receiving the 2nd dose of the covid vaccine. Client denies travel out of the [place] in the last 14 days. Ebola Screen: Patient denies travel to an Ebola-affected area in the 21 days before illness onset. No symptoms or risks identified at this time. Initial Sepsis Screen: Does the patient meet any 2 criteria? No. Patient's initial sepsis screen is negative. Does the patient have a suspected source of infection? No. Patient's initial sepsis screen is negative. Risk Assessment: Do you want to hurt yourself or someone else? Patient reports no desire to harm self or others. Onset of symptoms was February 24, 2023. 17:01 Method Of Arrival: Ambulatory cm10 17:01 Acuity: MARIELLE 2 cm10 Historical: - Allergies: 17:02 PENICILLINS; cm10 - PMHx: 17:02 Kidney stones; Hypertensive disorder; cm10 Screenin:39 [facility] ED Fall Risk Assessment (Adult) History of falling in the last 3 months, aa5 including since admission No falls in past 3 months (0 pts) Confusion or Disorientation No (0 pts) Intoxicated or Sedated No (0 pts) Impaired Gait No (0 pts) Mobility Assist Device Used No (0 pt) Altered Elimination No (0 pt) Score/Fall Risk Level 0 - 2 = Low Risk Oriented to surroundings, Maintained a safe environment, Educated pt \T\ family on fall prevention, incl call for assistance when getting out of bed. Abuse screen: Denies threats or abuse. Nutritional screening: No deficits noted. Tuberculosis screening: No symptoms or risk factors identified. Assessment: 17:00 General: Appears comfortable, Behavior is calm, cooperative. Pain: Denies pain. Pain aa5 currently is 0 out of 10 on a pain scale. Neuro: Level of Consciousness is awake, alert, obeys commands, Oriented to person, place, time, situation. Cardiovascular: Heart tones S1 S2 present Rhythm is regular. Respiratory: Airway is patent Respiratory effort is even, unlabored, Respiratory pattern is regular, symmetrical. GI: Abdomen is round Patient currently denies nausea, vomiting. : No signs and/or symptoms were reported regarding the genitourinary system. EENT: No signs and/or symptoms were reported regarding the EENT system. Derm: Skin is pink, warm \T\ dry. Musculoskeletal: Range of motion: intact in all extremities. 17:55 Reassessment: Patient is alert, oriented x 3, equal unlabored respirations, skin aa5 warm/dry/pink. Patient denies pain at this time. Pt notified of need to repeat troponin at 1920, pt verbalizes understanding. . 20:13 Reassessment: Patient appears in no apparent distress at this time. Patient denies pain kl at this time. Vital Signs: 17:01 BP 151 / 93; Pulse 79; Resp 16; Temp 98.1(TE); Pulse Ox 96% on R/A; Pain 0/10; cm10 18:57 BP 175 / 95; Pulse 65; Resp 18; Pulse Ox 95% on R/A; ld1 20:11 BP 178 / 100; Pulse 72; Resp 18; Pulse Ox 100% on R/A; Pain 0/10; kl 17:01 Pain Scale: Adult cm10 20:11 Pain Scale: Adult kl ED Course: 16:52 Patient arrived in ED. rg4 16:57 Lucinda Phillips PA-C is PHCP. sb4 16:57 Tarik Toth MD is Attending Physician. sb4 16:59 Joann Dale, BOB is Primary Nurse. aa5 17:00 Arm band placed on Patient placed in an exam room, on a stretcher. aa5 17:00 Patient has correct armband on for positive identification. Placed in gown. Bed in low aa5 position. Call light in reach. Side rails up X2. Client placed on continuous cardiac and pulse oximetry monitoring. NIBP monitoring applied. 17:00 No provider procedures requiring assistance completed. Patient maintains SpO2 aa5 saturation greater than 95% on room air. 17:02 Triage completed. cm10 17:12 EKG done, by ED staff, reviewed by Lucinda Phillips PA-C. zm 17:18 XRAY Chest (1 view) In Process Unspecified. EDMS 17:54 Inserted saline lock: 18 gauge in right antecubital area, using aseptic technique. ds4 Blood collected. 18:35 PHCP role handed off by Lucinda Phillips PA-C sb4 18:35 Tarik Matias PA is PHCP. sb4 19:06 Report given to BOB Polanco and BOB Mckeon. aa5 20:13 IV discontinued, intact, bleeding controlled, No redness/swelling at site. Pressure kl dressing applied. Administered Medications: 17:17 Drug: Aspirin PO Chewable Tablet 324 mg Route: PO; aa5 19:45 Follow up: Response: No adverse reaction as6 17:55 Drug: NS 0.9% IV 1000 ml Route: IV; Rate: 1 bolus; Site: right antecubital; aa5 19:45 Follow up: Response: No adverse reaction; IV Status: Completed infusion; IV Intake: as6 1000ml Intake: 19:45 IV: 1000ml; Total: 1000ml. as6 Outcome: 20:04 Discharge ordered by MD. cp 20:13 Discharged to home ambulatory. kl 20:13 Condition: stable 20:13 Discharge instructions given to patient, Instructed on discharge instructions, follow up and referral plans. Demonstrated understanding of instructions, follow-up care. 20:14 Patient left the ED. kl Signatures: Dispatcher [employer] EDCA Mariza Boucher RN RN kl Calderon, Audri RN RN aa5 Triston Bruner ds4 Tarik Matias PA PA cp Garcia, Rubi rg4 Anna Beard RN RN ld1 Collin Huang RN RN as6 Rossy Diaz Sophia, PA-C PA-C sb4 Martinez, Clarissa, RN RN cm10 Corrections: (The following items were deleted from the chart) 17:02 17:01 BP 151 / 93; Pulse 16bpm; Resp 79bpm; Pulse Ox 96% RA; Temp 98.1F Temporal; Pain cm10 0/10, Adult; cm10 17:39 17:02 Arm band placed on Patient placed in an exam room, on a stretcher, cm10 aa5
--- NOTE | 2023-02-24 20:05 | EDPHYS ---
Physician Documentation [facility] Name: Francesco Null Age: 77 yrs Sex: Male : 1945 Arrival Date: 02/24/2023 Time: 16:50 Bed 8 Private MD: ED Physician Tarik Toth HPI: 02/24 17:07 This 77 yrs old Male presents to ER via Ambulatory with complaints of Chest Pain, High sb4 Blood Pressure. 17:07 Patient states that he has been very stressed out at work and received some upsetting sb4 news this afternoon. He started experiencing substernal chest pain, and sensation that someone was sitting on his chest. It was associated with shortness of breath, diaphoresis, nausea. He reports that his blood pressure was also elevated during this time. States his pain has now resolved. Historical: - Allergies: 17:02 PENICILLINS; cm10 - PMHx: 17:02 Kidney stones; Hypertensive disorder; cm10 ROS: 17:07 Constitutional: Negative for fever, chills, and weight loss, Eyes: Negative for injury, sb4 pain, redness, and discharge, Neck: Negative for injury, pain, and swelling, Respiratory: Negative for shortness of breath, cough, wheezing, and pleuritic chest pain, Abdomen/GI: Negative for abdominal pain, nausea, vomiting, diarrhea, and constipation, Back: Negative for injury and pain, MS/Extremity: Negative for injury and deformity, Skin: Negative for injury, rash, and discoloration, Neuro: Negative for headache, weakness, numbness, tingling, and seizure. 17:07 Cardiovascular: Positive for chest pain, Negative for edema, orthopnea, palpitations. Exam: 17:07 Constitutional: This is a well developed, well nourished patient who is awake, alert, sb4 and in no acute distress. Head/Face: Normocephalic, atraumatic. Eyes: Extra-ocular motions intact. Periorbital areas with no swelling, redness, or edema. Cardiovascular: Regular rate and rhythm with a normal S1 and S2. Respiratory: Lungs have equal breath sounds bilaterally, clear to auscultation and percussion. No rales, rhonchi or wheezes noted. No increased work of breathing, no retractions or nasal flaring. Abdomen/GI: Soft, non-tender, no distension. Skin: Warm, dry with normal turgor. Normal color with no rashes, no lesions, and no evidence of cellulitis. MS/ Extremity: Pulses equal, no cyanosis. Neurovascular intact. Full, normal range of motion. Neuro: Awake and alert, GCS 15, oriented to person, place, time, and situation. Cranial nerves II-XII grossly intact. Motor strength 5/5 in all extremities. Sensory grossly intact. Cerebellar exam normal. Normal gait. 17:17 ECG was reviewed by the Attending Physician. sb4 Vital Signs: 17:01 BP 151 / 93; Pulse 79; Resp 16; Temp 98.1(TE); Pulse Ox 96% on R/A; Pain 0/10; cm10 18:57 BP 175 / 95; Pulse 65; Resp 18; Pulse Ox 95% on R/A; ld1 20:11 BP 178 / 100; Pulse 72; Resp 18; Pulse Ox 100% on R/A; Pain 0/10; kl 17:01 Pain Scale: Adult cm10 20:11 Pain Scale: Adult kl MDM: 16:57 Patient medically screened. sb4 17:07 Differential diagnosis: STEMI, NSTEMI, unstable angina, aortic dissection, panic sb4 attack, PE, nonspecific chest pain, prinzmental angina. 18:23 Data reviewed: vital signs, nurses notes, EKG, radiologic studies, I have discussed the sb4 patient's presentation/case with the attending Emergency Department Physician; and as a result, I will discharge patient. Consideration of Admission/Observation Escalation of care including admission/observation considered. Care significantly affected by the following chronic conditions: Hypertension. Scoring Tools HEART Score: History: ECG: Age: Risk Factors: 1 or 2 risk factors (1), Troponin: Total Score = 4. Counseling: I had a detailed discussion with the patient and/or guardian regarding: the historical points, exam findings, and any diagnostic results supporting the discharge/admit diagnosis, the presence of at least one elevated blood pressure reading (>120/80) during this emergency department visit, the need for outpatient follow up, a risk management professional. ED course: Patient has appointments scheduled with his risk management professional for a nuclear stress test and CT aorta. Will repeat 1 more troponin and discharge home if negative. He understands to return to the ED immediately if chest pain returns. 18:33 Transition of care: After a detail discussion of the patient's case, care is sb4 transferred to Tarik GARZA. 20:02 ED course: VSS. Chest pain resolved. Repeat troponin negative. Discussed observation cp with continued monitoring for chest pain. Patient declines and would like to f/u outpatient with primary risk management professional. 02/24 17:06 Order name: Basic Metabolic Panel; Complete Time: 17:51 [facility] 02/24 19:13 Interpretation: Normal except: CL 111; BUN 20; CRE 1.31; GFR 57. 02/24 17:06 Order name: CBC with Diff; Complete Time: 18:09 [facility] 02/24 19:13 Interpretation: Normal except: WBC 14.60; RBC 6.23; HGB 18.3; HCT 55.3; MPV 7.2; LETI% cp 74.5; LYM% 15.0; NEUT A 10.9. 02/24 17:06 Order name: D-Dimer; Complete Time: 17:29 [facility] 02/24 17:06 Order name: LFT's; Complete Time: 17:51 [facility] 02/24 17:06 Order name: Magnesium; Complete Time: 17:51 [facility] 02/24 17:06 Order name: NT PRO-BNP; Complete Time: 17:51 [facility] 02/24 17:06 Order name: PT-INR; Complete Time: 17:29 [facility] 02/24 17:06 Order name: Troponin HS; Complete Time: 17:51 [facility] 02/24 19:13 Interpretation: Reviewed. 02/24 17:52 Order name: Troponin High Sensitivity: repeat at 19:20 please; Complete Time: 19:50 [facility] 02/24 19:50 Interpretation: Reviewed. 02/24 17:06 Order name: XRAY Chest (1 view); Complete Time: 17:26 [facility] 02/24 17:06 Order name: EKG; Complete Time: 17:08 [facility] 02/24 17:06 Order name: Cardiac monitoring; Complete Time: 17:13 [facility] 02/24 17:06 Order name: EKG - Nurse/Tech; Complete Time: 17:13 [facility] 02/24 17:06 Order name: IV Saline Lock; Complete Time: 17:13 [facility] 02/24 17:06 Order name: Labs collected and sent; Complete Time: 17:13 [facility] 02/24 17:06 Order name: O2 Per Protocol; Complete Time: 17:13 sb4 02/24 17:06 Order name: O2 Sat Monitoring; Complete Time: 17:13 sb4 02/24 17:32 Order name: Labs - recollect needed: recollect CBC please; Complete Time: 17:52 em1 EC:17 Rate is 72 beats/min. Rhythm is regular, Normal Sinus Rhythm with 1st degree heart sb4 block. WI interval is prolonged at 236 msec. QRS interval is normal at 94 msec. QT interval is normal at 402 msec. No Q waves. No ST changes noted. Clinical impression: Normal ECG. Interpreted by me. Reviewed by me. Administered Medications: 17:17 Drug: Aspirin PO Chewable Tablet 324 mg Route: PO; aa5 19:45 Follow up: Response: No adverse reaction as6 17:55 Drug: NS 0.9% IV 1000 ml Route: IV; Rate: 1 bolus; Site: right antecubital; aa5 19:45 Follow up: Response: No adverse reaction; IV Status: Completed infusion; IV Intake: as6 1000ml Disposition Summary: 02/24/23 20:04 Discharge Ordered Location: Home cp Problem: new cp Symptoms: are resolved cp Condition: Stable cp Diagnosis - Chest pain, unspecified cp - Essential (primary) hypertension cp Followup: sb4 - With: Private Physician - When: 2 - 3 days - Reason: Recheck today's complaints, Continuance of care, Re-evaluation by your physician Discharge Instructions: - Aspirin and Your Heart cp - Discharge Summary Sheet sb4 - Nonspecific Chest Pain, Adult sb4 - Heart Disease Prevention sb4 Forms: - Medication Reconciliation Form cp - Thank You Letter cp - Antibiotic Education cp - Prescription Opioid Use cp - Patient Portal [email or web address].htm cp Signatures: Dispatcher [employer] [place] em1 Joann Dale RN RN aa5 Tarik Matias PA PA cp Brown, Sophia PAEdi PAEdi sb4 Yumiko Diaz RN RN cm10 Collin Huang RN as6
[2023-02-24 21:01] VITALS: TEMP 98.1
[2023-02-24 21:05] VITALS: BP 178/100; O2SAT 100
--- NOTE | 2023-02-25 20:24 | EKG ---
Test Date: 2023-02-24 Test Time: 17:08:36 Animal Keeper Head: STEVIE MEASUREMENT RESULTS: Intervals: Rate: 72 NC: 236 QRSD: 94 QT: 402 QTc: 440 [place]: P: 43 NC: 236 QRS: -13 T: 46 INTERPRETIVE STATEMENTS: Sinus rhythm with 1st degree AV block Otherwise normal ECG Compared to ECG 02/02/2018 12:45:55 Left ventricular hypertrophy no longer present Electronically Signed On 02-25-23 20:21:52 CDT by Pete Kaur
== END 2023-02-24 20:14 | disposition home or self-care (01) ==
LOC: ER 16:50
DX: R07.9 Chest pain, unspecified (principal); I10 Essential (primary) hypertension; Z88.0 Allergy status to penicillin
CPT/HCPCS: 96361; 93005; 85025; 80048; 36415; 83735; 85610; 85379; 80076; 84484 ×2; 83880; 71045; 96360; 99285; J7030